=== PATIENT | female | born 1955 | race Caucasian/White ===

== ENCOUNTER → 2017-11-29 07:04 | Outpatient (CLI) | payer MEDICARE, SELFPAY ==
--- NOTE | 2017-11-30 10:25 | PFTCOMP_ITS ---
COMPLETE PULMONARY FUNCTION TEST INTERPRETATION Brief HPI: Patient is a 62 year old female, currently under the care of myself, who presents to [facility] for complete pulmonary function tests secondary to diagnosis of asthma. Respiratory therapist reports good effort and reproducible results. Interpretation: Forced expiration spirometry shows a moderately-severe large airways obstructive ventilatory defect with an FEV1 of 56% predicted. Bronchodilator evaluation was refused. Spirograms are of good quality and plateau slowly, indicating slowly emptying areas of the lungs. The respiratory flow volume loop shows decreased expiratory flow rates at all lung volumes consistent with airway obstruction. Lung volumes by body plethysmography show a decreased total lung capacity at 3.6 L, 65% predicted. All other lung volumes are reduced symmetrically. Diffusion capacity by carbon monoxide is decreased at 51% predicted. The airway resistance is normal. Compared to previous pulmonary function tests from 01/05/2014, there has been a significant reduction in FVC, FEV1 and DLCO. Impression: Moderately severe mixed ventilatory defect with a symmetric reduction diffusing capacity. There has been significant worsening in pulmonary function test compared to 2013.
== END ==
LOC: PSN 07:08
PROVIDERS: Family Provider Internal Medicine; PCP Internal Medicine; Visit Provider Internal Medicine Critical Care Medicine
DX: J45.909 Unspecified asthma, uncomplicated (principal); Z90.2 Acquired absence of lung [part of]
CPT/HCPCS: 94060; 94726; 94729

== ENCOUNTER → 2017-12-09 12:36 | Outpatient (CLI) | payer MEDICARE, SELFPAY ==
[2017-12-09 12:45] VITALS: PULSE 57; PULSE 82; PULSE 85; PULSE 97; PULSE 98; PULSE 99; O2SAT 90; O2SAT 91; O2SAT 92; O2SAT 93; O2SAT 94; O2SAT 96; O2SAT 97
--- NOTE | 2017-12-10 08:40 | WT_ITS ---
PSN 6 Minute Walk Test - 6 Minute Walk Test 6 Minute Walk Test: 6 Minute Walk Test PSN:6-Minute Walk Test Start: 12/09/17 13: 18 Freq: Status: Active Protocol: [id number].[id number] Document 12/09/17 12:45 HG (Rec: 12/09/17 13:21 HG [id number]) 6 Minute Walk Test Date Performed 12/09/17 Time Performed 12:45 Height 5 ft 7 in Weight: 390 lb Weight in Pounds 390.[address]: Michael Paulson Assistive device used: None Pre-test Oxygen Delivery Method Room Air Pulse Ox (%) 97 Pulse Rate (60-100 beats/min) 57 L Dyspnea Ritesh Scale (0-10) 8 Exertion Ritesh Scale (6-20) 2 1st minute Oxygen Delivery Method Room Air Pulse Ox (%) 96 Pulse Rate (60-100 beats/min) 85 2nd minute Oxygen Delivery Method Room Air Pulse Ox (%) 93 Pulse Rate (60-100 beats/min) 98 Number of Rests Taken 1 Reported Symptoms Increased Work of Breathing 3rd minute Oxygen Delivery Method Room Air Pulse Ox (%) 90 Pulse Rate (60-100 beats/min) 98 Number of Rests Taken 1 Reported Symptoms Increased Work of Breathing 4th minute Oxygen Delivery Method Room Air Pulse Ox (%) 91 Pulse Rate (60-100 beats/min) 97 Number of Rests Taken 1 Reported Symptoms Increased Work of Breathing 5th minute Oxygen Delivery Method Room Air Pulse Ox (%) 91 Pulse Rate (60-100 beats/min) 99 Number of Rests Taken 1 Reported Symptoms Increased Work of Breathing 6th minute Pulse Ox (%) 92 Pulse Rate (60-100 beats/min) 97 Post-test Oxygen Delivery Method Room Air Pulse Ox (%) 94 Pulse Rate (60-100 beats/min) 82 Dyspnea Ritesh Scale (0-10) 7 Exertion Ritesh Scale (6-20) 16 Full Laps Walked 9 Partial Lap, Number of Tiles Walked 0 Total Distance Walked (ft) 531 - Interpretation Interpretation: The patient ambulated 531 feet over the course of 6 minutes beginning on room air without assistive devices or breaks. Pretesting oxygen saturation was noted be 97% on room air. With ambulation, the vicky oxygen saturation was 90% . There was evidence of both impaired walk distance and significant exertional oxygen desaturation. - Recommendations Recommendations: There is no indication for the use of supplemental oxygen at this time. However , close interval follow-up is recommended given the degree of oxygen desaturation noted on this study.
== END ==
PROVIDERS: Family Provider Internal Medicine; PCP Internal Medicine; Visit Provider Internal Medicine Critical Care Medicine
DX: J45.909 Unspecified asthma, uncomplicated (principal); Z90.2 Acquired absence of lung [part of]
CPT/HCPCS: 94618

== ENCOUNTER → 2018-05-20 14:41 | Outpatient (CLI) | payer MEDICARE, SELFPAY ==
[2018-05-20 16:33] LABS: Absolute Lymphocyte Count 2.04 X10^3/ul (0.83-4.51); Absolute Neutrophil Count 5.1 X10^3/uL (2.0-7.7); Basophil# 0.03 X10^3/uL; Basophil% 0.4 % (0-1); Eosinophil# 0.23 X10^3/uL; Eosinophils% 2.9 % (0-5); Hematocrit 41.4 % (37-47); Hemoglobin 13.5 g/dl (12.0-15.0); Lymphocyte # 2.04 X10^3/ul (4.0); Lymphocyte % 25.4 % (19-41); Mean Corp Hgb Conc 32.6 g/gl (32-36); Mean Corpuscular Hgb 32.2 pg (27.0-32.0); Mean Corpuscular Volume 98.8 fL (81-99); Mean Platelet Vol. 10.8 fl (6.2-12.0); Monocyte% 7.5 % (0-10); Neutrophil # 5.11 X10^3/uL (2.7-7.7); Neutrophil % 63.4 % (47-70); Platelet Count 238 K/mm3 (150-450); RBC Distribution Width CV 14.9 % (11.6-14.6); Red Blood Count 4.19 M/mm3 (4.2-5.4)
[2018-05-20 16:38] LABS: International Normalized Ratio 2.3; Prothrombin Time (Protime)PT. 25.1 SECONDS (11.7-14.9)
[2018-05-20 16:44] LABS: POSITIVE COUNT NO; POSITIVE DIFFERENTIAL NO; POSITIVE MORPHOLOGY NO
[2018-05-20 17:04] LABS: Anion Gap 8 (5-15); BUN 14 mg/dL (7-18); BUN/Creat Ratio 12.7 RATIO (10-20); Calcium,Total 8.6 mg/dL (8.5-10.1); Chloride 106 mmol/L (98-107); EST Glomerular Filtration Rate 54 mL/min (>60); Est Glom Filt Rate - Afr Amer 65 mL/min (>60); Glucose 128 mg/dL (74-106); Potassium 3.5 mmol/L (3.5-5.1); Sodium Level 141 mmol/L (136-145)
[2018-05-20 17:10] LABS: BNP,B-Type NATRIURETIC PEPTIDE 25.7 pg/mL (0-100)
== END ==
PROVIDERS: Family Provider Internal Medicine; PCP Internal Medicine; Referring Provider Nurse Practitioner Family; Visit Provider Nurse Practitioner Family
DX: I10 Essential (primary) hypertension (principal); I48.0 Paroxysmal atrial fibrillation; J45.909 Unspecified asthma, uncomplicated; R06.09 Other forms of dyspnea; Z79.01 Long term (current) use of anticoagulants
CPT/HCPCS: 36415; 80048; 83880; 85025; 85610

== ENCOUNTER 2018-05-22 16:14 | Emergency (ER) | payer MEDICARE, SELFPAY ==
[2018-05-22 16:14] VITALS: BP 196/101; PULSE 69; RESP 18; TEMP 36.8; O2SAT 94; BMI 30.5
[2018-05-22 16:30] VITALS: BP 185/94; BP 191/96; BP 196/109; PULSE 70; PULSE 74; PULSE 75
--- NOTE | 2018-05-22 16:33 | ED.VISSUMM ---
- ER Visit Summary Date of Service: 05/22/18 Chief Complaint: Sore throat and cough. History of Present Illness: The patient is a 62 F history of A. fib for which she is on warfarin, insulin-dependent diabetes, hypertension, factor V Leiden and prior PE. Patient states she has had URI type symptoms last 2 days. With sore throat at times and earache. No fever. No shortness of breath. Mild nonproductive cough. No hemoptysis. 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 Physical Examination: Well-appearing middle-age female. Vital signs are stable. Pulse ox 94% on room air no signs of hypoxia. H EENT exam posterior pharynx mildly erythematous. No exudate. No peritonsillar abscess. Able to swallow. No stridor. No drooling. TMs unremarkable. Neck nontender. Trachea midline. No lymphadenopathy. No meningismus. Lungs few scattered expiratory wheezes which she states is chronic. No rhonchi or rales. Heart regular rhythm rate about 70. No murmur. Abdomen morbidly obese but soft. Nontender. Normal bowel sounds. She is moving all 4 extremities. They are neurovascularly intact. Back is nontender. Neurologically she is awake and alert. No focal motor deficits. Equal symmetrical major assembler strength. Dorsi and plantar flexion intact. Test Results: I reviewed the patient's labs that she had drawn this past Wednesday on 05/20/2018. CBC showed a white count 8. Hemoglobin was 13. Electrolytes are unremarkable gap was 8. Creatinine was 1.1. She is chronically on anticoagulation due to A. fib and her INR was 2.3. Emergency Department Course and Treatment: Repeat exam at 17:11 patient is doing well. Her orthostatic vital signs were unremarkable. Her blood pressure is elevated. Treatment Plan: Viral URI symptomatic treatment. Disposition: dc Impression: Viral URI. History of A. fib. History of anticoagulation on warfarin History of insulin-dependent diabetes This note was generated with [employer] dictation software. It may contain incorrect words, spelling, and punctuation that were not noted in review of the chart prior to signing ED Disposition - Plan for ED Patient: Chief Complaint: Cold Sx Referrals: Sandy Anderson MD [Primary Care Provider] -
--- NOTE | 2018-05-22 16:36 | ED.DCSUM_ITS ---
- ER Visit Summary Date of Service: 05/22/18 Chief Complaint: Sore throat and cough. History of Present Illness: The patient is a 62 F history of A. fib for which she is on warfarin, insulin-dependent diabetes, hypertension, factor V Leiden and prior PE. Patient states she has had URI type symptoms last 2 days. With sore throat at times and earache. No fever. No shortness of breath. Mild nonproductive cough. No hemoptysis. 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 Physical Examination: Well-appearing middle-age female. Vital signs are stable. Pulse ox 94% on room air no signs of hypoxia. H EENT exam posterior pharynx mildly erythematous. No exudate. No peritonsillar abscess. Able to swallow. No stridor. No drooling. TMs unremarkable. Neck nontender. Trachea midline. No lymphadenopathy. No meningismus. Lungs few scattered expiratory wheezes which she states is chronic. No rhonchi or rales. Heart regular rhythm rate about 70. No murmur. Abdomen morbidly obese but soft. Nontender. Normal bowel sounds. She is moving all 4 extremities. They are neurovascularly intact. Back is nontender. Neurologically she is awake and alert. No focal motor deficits. Equal symmetrical fire engine operator strength. Dorsi and plantar flexion intact. Test Results: I reviewed the patient's labs that she had drawn this past Wednesday on 05/20/2018. CBC showed a white count 8. Hemoglobin was 13. Electrolytes are unremarkable gap was 8. Creatinine was 1.1. She is chronically on anticoagulation due to A. fib and her INR was 2.3. Emergency Department Course and Treatment: Repeat exam at 17:11 patient is doing well. Her orthostatic vital signs were unremarkable. Her blood pressure is elevated. Treatment Plan: Viral URI symptomatic treatment. Disposition: dc Impression: Viral URI. History of A. fib. History of anticoagulation on warfarin History of insulin-dependent diabetes This note was generated with [employer] dictation software. It may contain incorrect words, spelling, and punctuation that were not noted in review of the chart prior to signing ED Disposition - Plan for ED Patient: Chief Complaint: Cold Sx Referrals: Sandy Anderson MD [Primary Care Provider] -
[2018-05-22 16:56] LABS: Bedside Glucose 154 mg/dL (70-110)
--- NOTE | 2018-05-22 17:14 | ED.DEP ---
ED Disposition - Plan for ED Patient: Disposition: Home or Assisted Living Chief Complaint: Cold Sx Instructions: Dysuria, ED URI Viral Referrals: Sandy Anderson MD [Primary Care Provider] - 3-5 Days if not improving Additional Instructions: Plenty of fluids and rest. Follow-up your primary care physician's office to have your blood pressure rechecked. Continue current medications as prescribed.
[2018-05-22 17:22] VITALS: BP 191/96
== END 2018-05-22 17:23 | disposition home or self-care (01) ==
PROVIDERS: Emergency Provider Emergency Medicine; Family Provider Internal Medicine; PCP Internal Medicine
DX: J06.9 Acute upper respiratory infection, unspecified (principal); I48.91 Unspecified atrial fibrillation; E11.9 Type 2 diabetes mellitus without complications; I10 Essential (primary) hypertension; D68.51 Activated protein C resistance; Z86.711 Personal history of pulmonary embolism; Z79.4 Long term (current) use of insulin; Z79.01 Long term (current) use of anticoagulants; Z79.899 Other long term (current) drug therapy
CPT/HCPCS: 82962; 99283

== ENCOUNTER 2018-10-11 19:23 | Emergency (ER) | payer MEDICARE, SELFPAY ==
[2018-10-11 19:24] VITALS: BP 135/83; PULSE 80; RESP 16; TEMP 35.9; O2SAT 95; BMI 58.7
--- NOTE | 2018-10-11 21:33 | CT_ITS ---
STUDY: CT ABDOMEN AND PELVIS WITHOUT CONTRAST REASON FOR EXAM: Female, 62 years old. Right flank pain. RADIATION DOSAGE (If Supplied By Facility): CTDIvol = ( 24.18 ) mGy, DLP = ( 1304.78 ) mGycm TECHNIQUE: Transaxial images were obtained from the dome of the diaphragm to the symphysis pubis without oral contrast, and without intravenous contrast. Sagittal and coronal images were reconstructed. Individualized dose optimization techniques were used for this CT. COMPARISON: 05/22/2017. FINDINGS: Lung bases are clear. Visualized heart is normal. There is diffuse fatty infiltration of the liver. No focal lesion is seen. The spleen and pancreas are unremarkable. The adrenal glands are normal. The kidneys are unremarkable. No stones or hydronephrosis. The aorta is normal in caliber. There is no free fluid, free air, or organized collection. No bowel obstruction or inflammatory change. There is extensive colonic diverticulosis. No evidence of acute diverticulitis. Urinary bladder is unremarkable. There is a moderate umbilical hernia containing a small bowel loop. There is no proximal obstruction. Previously reported collection or seroma in the abdominal wall show significant interval improvement. There is mild residual stranding or scarring at this time. Normal osseous structures. CT/Abdomen/Pelvis without Cont IMPRESSION: 1. No acute process. 2. Umbilical hernia contains a loop of bowel, no proximal obstruction. 3. Diverticulosis, no acute diverticulitis. 4. Near complete resolution of previously described abdominal wall hematoma or collection. Residual stranding or fibrosis is present. 5. Hepatic steatosis. Electronically Signed: Nuvia Rodriguez MD at 23:23 EDT Tel , Service support ,
[2018-10-11] MEDS: HYDROmorphone 1 MG/ML Syringe IV (22:13)
[2018-10-11] MEDS: proMETHazine 25 MG/ML Syringe 12.5 MG IV (22:13)
[2018-10-11] MEDS: 0.9% Normal Saline 1,000 ML 150 ML IV (22:13)
[2018-10-11 22:17] VITALS: BP 185/74; PULSE 84; RESP 22; O2SAT 95
[2018-10-11 22:24] LABS: Bacteria 0 SEEN /hpf (None Seen); Mucous, Urine 0 SEEN /hpf (<or=2+); Red Blood Cells-Urine 0 SEEN /hpf (0-5); Squamous Epithelial Cells - UA 0 SEEN /hpf (5-10)
[2018-10-11 22:28] LABS: Absolute Lymphocyte Count 2.64 X10^3/ul (0.83-4.51); Absolute Neutrophil Count 5.9 X10^3/uL (2.0-7.7); Basophil# 0.02 X10^3/uL; Basophil% 0.2 % (0-1); Eosinophil# 0.26 X10^3/uL; Eosinophils% 2.7 % (0-5); Hematocrit 42.2 % (37-47); Hemoglobin 13.4 g/dl (12.0-15.0); Lymphocyte # 2.64 X10^3/ul (4.0); Lymphocyte % 27.5 % (19-41); Mean Corp Hgb Conc 31.8 g/gl (32-36); Mean Corpuscular Hgb 31.3 pg (27.0-32.0); Mean Corpuscular Volume 98.6 fL (81-99); Mean Platelet Vol. 10.6 fl (6.2-12.0); Monocyte# 0.73 X10^3/uL; Monocyte% 7.6 % (0-10); Neutrophil # 5.93 X10^3/uL (2.7-7.7); Neutrophil % 61.8 % (47-70); Platelet Count 276 K/mm3 (150-450); RBC Distribution Width CV 15.5 % (11.6-14.6); RBC Distribution Width SD 55.8 fl (35.1-43.9); Red Blood Count 4.28 M/mm3 (4.2-5.4); White Blood Count 9.6 K/mm3 (4.4-11.0)
[2018-10-11 22:30] LABS: POSITIVE COUNT NO; POSITIVE DIFFERENTIAL NO; POSITIVE MORPHOLOGY NO
[2018-10-11 22:34] LABS: Color, Urine Yellow (Yellow); Glucose, Dipstick Normal (Normal); Ketone-Dipstick Negative (Negative); Leukocyte Esterase-Dipstick 500 /ul (Negative); Nitrite-Dipstick Negative (Negative); Occult Blood-Urine 50 /ul (Negative); Protein-Dipstick 500 mg/dl (Negative); Urine Bilirubin Dipstick Negative (Negative); Urine Clarity Sl. Cloudy (Clear); Urine Urobilinogen Normal (Normal)
[2018-10-11 22:36] LABS: International Normalized Ratio 2.1; Prothrombin Time (Protime)PT. 23.4 SECONDS (11.7-14.9)
[2018-10-11 22:41] LABS: Anion Gap 8 (5-15); BUN 18 mg/dL (7-18); BUN/Creat Ratio 15.9 RATIO (10-20); Calcium,Total 8.5 mg/dL (8.5-10.1); Chloride 103 mmol/L (98-107); Creatinine, Serum 1.13 mg/dL (0.55-1.02); EST Glomerular Filtration Rate 52 mL/min (>60); Est Glom Filt Rate - Afr Amer 63 mL/min (>60); Estimated Creatinine Clearance 51.48 ml/min; Glucose 144 mg/dL (74-106); Potassium 3.7 mmol/L (3.5-5.1); Sodium Level 139 mmol/L (136-145)
[2018-10-11 23:04] LABS: White Blood Cells 5-10 SEEN /hpf (0-5)
--- NOTE | 2018-10-11 23:32 | ED.VISSUMM ---
- ER Visit Summary Date of Service: 10/11/18 Chief Complaint: [Back pain] History of Present Illness: The patient is a 62 F [presents to the emergency department complaint of pain in her back that she is had for a couple of weeks. Patient states that she has had some issues with some chronic back pain in the past. Patient describes pain now that is radiating around to the anterior aspect of the abdomen. She denies any pain going down her legs. She denies any weakness in the legs. She denies any change in bowel or bladder function. Patient's been using Valium and Tylenol at home and not get much relief. Patient has a history of asthma, diabetes, hypertension, A. fib, obstructive sleep apnea, history of PE. Patient is currently on warfarin. She denies any dysuria, urgency, frequency, or hematuria. Patient's not had any fevers.] Physical Examination: [HEENT-PERRLA, EOMI. Cranial nerves II through XII grossly intact. TMs clear. Mucous membranes moist. No adenopathy. Cardiovascular-regular rate and rhythm without murmur or ectopy Lungs-clear to auscultation, chest wall stable without crepitus or subcu emphysema Abdomen-normoactive bowel sounds, soft. Patient is morbidly obese. Patient has some tenderness to palpation over the right lower quadrant. There is no rebound, rigidity, or perineal signs. Back exam-patient has some tenderness over the right costovertebral angle. Negative straight leg raises. Deep tendon reflexes are plus out of 4 bilaterally at the patella and Achilles. Patient has normal L5 extension bilaterally. Extremities-intact ?4, normal range of motion, normal pulses, atraumatic] Test Results: [CBC with differential 9.6, hemoglobin 13, hematocrit 42, platelets 276. Chemistries unremarkable. INR was 2.1. Urinalysis showed 500 leukocyte esterase and 5-10 WBCs with no bacteria. Negative for nitrites. CT of the abdomen pelvis without contrast showed essentially nothing acute.] Emergency Department Course and Treatment: [Patient was medicated with Dilaudid and Zofran she had pain relief with that.] Treatment Plan: [Patient will be given a prescription for Zofran and Dilaudid for pain. Patient advised to follow-up with primary care physician within next 3-5 days.] Disposition: [Discharged home in stable condition.] Impression: [Acute exacerbation of chronic back pain] This note was generated with [employer] dictation software. It may contain incorrect words, spelling, and punctuation that were not noted in review of the chart prior to signing ED Disposition - Plan for ED Patient: Referrals: Sandy Anderson MD [Primary Care Provider] -
--- NOTE | 2018-10-11 23:38 | ED.DCSUM_ITS ---
- ER Visit Summary Date of Service: 10/11/18 Chief Complaint: [Back pain] History of Present Illness: The patient is a 62 F [presents to the emergency department complaint of pain in her back that she is had for a couple of weeks. Patient states that she has had some issues with some chronic back pain in the past. Patient describes pain now that is radiating around to the anterior aspect of the abdomen. She denies any pain going down her legs. She denies any weakness in the legs. She denies any change in bowel or bladder function. Patient's been using Valium and Tylenol at home and not get much relief. Patient has a history of asthma, diabetes, hypertension, A. fib, obstructive sleep apnea, history of PE. Patient is currently on warfarin. She denies any dysuria, urgency, frequency, or hematuria. Patient's not had any fevers.] Physical Examination: [HEENT-PERRLA, EOMI. Cranial nerves II through XII grossly intact. TMs clear. Mucous membranes moist. No adenopathy. Cardiovascular-regular rate and rhythm without murmur or ectopy Lungs-clear to auscultation, chest wall stable without crepitus or subcu emphysema Abdomen-normoactive bowel sounds, soft. Patient is morbidly obese. Patient has some tenderness to palpation over the right lower quadrant. There is no rebound, rigidity, or perineal signs. Back exam-patient has some tenderness over the right costovertebral angle. Negative straight leg raises. Deep tendon reflexes are plus out of 4 bilate rally at the patella and Achilles. Patient has normal L5 extension bilaterally. Extremities-intact ?4, normal range of motion, normal pulses, atraumatic] Test Results: [CBC with differential 9.6, hemoglobin 13, hematocrit 42, platelets 276. Chemistries unremarkable. INR was 2.1. Urinalysis showed 500 leukocyte esterase and 5-10 WBCs with no bacteria. Negative for nitrites. CT of the abdomen pelvis without contrast showed essentially nothing acute.] Emergency Department Course and Treatment: [Patient was medicated with Dilaudid and Zofran she had pain relief with that.] Treatment Plan: [Patient will be given a prescription for Zofran and Dilaudid for pain. Patient advised to follow-up with primary care physician within next 3-5 days.] Disposition: [Discharged home in stable condition.] Impression: [Acute exacerbation of chronic back pain] This note was generated with [email or web address] dictation software. It may contain incorrect words, spelling, and punctuation that were not noted in review of the chart prior to signing ED Disposition - Plan for ED Patient: Referrals: Sandy Anderson MD [Primary Care Provider] -
--- NOTE | 2018-10-11 23:38 | ED.DEP ---
ED Disposition - Plan for ED Patient: Instructions: ED Spasm Back No Trauma Prescriptions: HYDROmorphone tablet [Dilaudid] 2 mg PO Q4H PRN PRN 2 Days #10 tab PRN Reason: Pain Ondansetron [Zofran Odt] 4 mg PO Q8H PRN PRN #10 tab PRN Reason: Nausea Referrals: Sandy Anderson MD [Primary Care Provider] - 3-5 Days
[2018-10-11 23:59] VITALS: BP 163/77; PULSE 83; RESP 22; O2SAT 94
[2018-10-12] MEDS: Ondansetron ODT 4 MG Tablet PO
[2018-10-12] MEDS: HYDROcodone Bitartrate/Apap 5/325 Tablet PO (00:01)
== END 2018-10-12 00:08 | disposition home or self-care (01) ==
LOC: ED 21:40
PROVIDERS: Emergency Provider Emergency Medicine; Family Provider Internal Medicine; PCP Internal Medicine
DX: M54.5 Low back pain (principal); G89.29 Other chronic pain; G47.33 Obstructive sleep apnea (adult) (pediatric); I48.91 Unspecified atrial fibrillation; Z86.711 Personal history of pulmonary embolism; Z87.891 Personal history of nicotine dependence; Z79.01 Long term (current) use of anticoagulants; Z79.899 Other long term (current) drug therapy
CPT/HCPCS: 74176; 80048; 81001; 85025; 85610; 87086; 87088; 96361; 96374; 96375; 99283; J7030; A4216

== ENCOUNTER → 2018-10-18 12:55 | Outpatient (CLI) | payer MEDICARE, SELFPAY ==
[2018-10-11 19:24] VITALS: BMI 58.7
--- NOTE | 2018-10-18 12:57 | BI_ITS ---
MAMMOGRAPHY - BILATERAL SCREENING 3-D AYAKA SYNTHESIS REASON FOR EXAM: Female, 62 years old. Bilateral Screening 3-D tomosynthesis PERTINENT HISTORY: History of breast cancer in mother in her sixth decade. History of bilateral excisional biopsies and 3 needle biopsies.. TECHNIQUE: 2-D mammograms and 3-D Ayaka synthesis of the breast (s) were performed. CAD was performed. COMPARISON: August 21, 2015 FINDINGS: The breast composition is almost entirely fat. There are 3 tissue clip marker is in the right breast, 2 of which are new.. Scattered benign calcifications are stable. There are stable nodular densities in both breasts. No dense spiculated masses or suspicious microcalcifications are identified. No architectural distortion is identified. There is no skin thickening or retraction. There has been no significant change since the prior study. BI/SCREENING MAMM (CAD), BILAT IMPRESSION: No mammographic signs of malignancy. Routine yearly mammograms recommended. ASSESSMENT CATEGORY: BIRADS Category 2: Benign. A letter regarding these results will be sent to the patient by the facility within 30 days. FOLLOW UP RECOMMENDATION: Yearly follow up mammogram recommended. (A) Approximately 10% of breast cancers are not detected by mammography. A normal mammogram should not delay biopsy of a clinically suspicious abnormality. Electronically Signed: Vignesh Castanon MD at 12:40 EDT , Service support ,
== END ==
PROVIDERS: Family Provider Internal Medicine; PCP Internal Medicine; Referring Provider Internal Medicine; Visit Provider Internal Medicine
DX: Z12.31 Encounter for screening mammogram for malignant neoplasm of breast (principal)
CPT/HCPCS: 77063; 77067

== ENCOUNTER 2019-04-27 10:09 | Emergency (ER) | payer MEDICARE, SELFPAY ==
[2019-04-27 10:10] VITALS: BP 197/89; PULSE 67; RESP 18; TEMP 36.6; O2SAT 96; BMI 56.3
--- NOTE | 2019-04-27 10:24 | CT_ITS ---
We are attempting to reach an attending provider to discuss findings. An addendum with communication details will be sent when the communication is complete. STUDY: CT BRAIN WITHOUT CONTRAST REASON FOR EXAM: Female, 63 years old. Headache x1 month. On Coumadin. RADIATION DOSAGE (If Supplied By Facility): CTDIvol = ( 44.99 ) mGy, DLP = ( 863.60 ) mGycm TECHNIQUE: Transaxial CT imaging of the brain was performed without administration of intravenous contrast material. Coronal and sagittal reconstructions were performed. Individualized dose optimization techniques were used for this CT. COMPARISON: None. FINDINGS: Normal soft tissue structures. Normal calvarium. Hyperdense subdural hematoma overlying the right cerebral hemisphere with maximum thickness of 12.3 mm overlying the right parietal lobe. 8 mm thick hypodense subdural fluid along the posterior right side of the falx cerebri. Hyperdense subdural hematoma along the left side of the posterior falx cerebri. Minimal hyper and hypodense subdural fluid overlying the left cerebral hemisphere. The maximum thickness is 5 mm on the left. Normal ventricles. Normal white matter tracts of the cerebral hemispheres. Normal basal ganglia and thalami. Normal brainstem. Normal cerebellum. There are no findings of an acute ischemic infarction. Normal visualized paranasal sinuses. CT/Brain/Head without Contrast IMPRESSION: 1. Bilateral subdural hematomas, mixed hyperdense and hypodense. The maximum thickness of the subdural hematoma overlying the right parietal lobe is 12.3 mm. The hypodense subdural fluid along the right side of the posterior falx cerebri is 8 mm thick. The hypodense subdural fluid overlying the left cerebral hemisphere is 5 mm thick. There is also minimal hyperdense subdural hematoma along the right side of the anterior falx cerebri and along the left side of the posterior falx cerebri. 2. No midline shift. 3. No intraparenchymal hemorrhage. Electronically Signed: Eric Story MD at 11:24 EDT , Service support ,
--- NOTE | 2019-04-27 10:26 | ED.VIS.GEN ---
History of Present Illness Chief Complaint: Headache Informant: Patient Onset: Month(s) Current Severity: Moderate Maximum Severity: Moderate Narrative: Patient presents with headache which is been ongoing for more than a month. She states over the past week it is gotten worse. She has been taking Tylenol and Valium at home without improvement. She reports having a history of migraines when she was in high school, but really has not had significant headaches as an adult. She did recently start Cymbalta but cannot remember if headaches coincided with the start of this medication. She is currently on Coumadin for a history of PE and paroxysmal A. fib. Blood pressure today is 197/89. She has a history of hypertension and her antihypertensives have not changed recently. She does not check her blood pressure on her normal basis. - Past Medical History (1) Asthma Status: Chronic (2) Atrial fibrillation Status: Chronic (3) History of lobectomy of lung Status: Chronic Comment: LLL removed for CA (4) History of pulmonary embolism Status: Chronic (5) Hypertension Status: Chronic (6) Obesity Status: Chronic (7) Obstructive sleep apnea Status: Chronic (8) Paroxysmal atrial fibrillation Status: Chronic (9) Type 2 diabetes mellitus without complications Status: Chronic Past Medical History - Allergies and Home Meds Allergies/Adverse Reactions: Allergies albuterol Adverse Reaction (Verified 04/27/19 10:12) PALPITATIONS codeine Adverse Reaction (Verified 04/27/19 10:12) Vomiting morphine Adverse Reaction (Verified 04/27/19 10:12) Vomiting oxycodone HCl [From Percocet] Adverse Reaction (Verified 04/27/19 10:12) Vomiting Primary Care Physician: Sandy Anderson MD [Primary Care Provider] - Prior records reviewed: Yes Past Medical History: - - Reviewed Surgical History: appendectomy, cholecystectomy, - - Left lower lung resection for lung cancer, removal of cyst from the breast. Smoking Status: Former smoker - Family History Maternal Family History: Family History (Last Reviewed 11/30/18 @ 13:24 by Margie Ma) Mother Breast cancer Father CAD (coronary artery disease) Myocardial infarction Family History: Reports: Diabetes Paternal Family History: Family History (Last Reviewed 11/30/18 @ 13:24 by Margie Ma) Mother Breast cancer Father CAD (coronary artery disease) Myocardial infarction Family History: Reports: Diabetes, Heart Disease Review of Systems General: Denies: Chills, Fever Eyes: Denies: Visual changes - bilaterally ENT: Denies: Bilateral ear pain Cardiovascular: Denies: Chest pain Respiratory: Denies: Dyspnea, Cough Gastrointestinal: Reports: Nausea. Denies: Abdominal pain, Vomiting, Diarrhea Musculoskeletal: Denies: Neck pain, Back pain Skin: Denies: Rash Neurological: Reports: Headache. Denies: Weakness, Parasthesia Hematologic: Denies: Easy bruising Allergy: Denies: Uticaria Physical Exam Vital Signs/Narrative: Vital Signs Temp Pulse Resp BP Pulse Ox 04/27/19 10:10 98 F 67 18 197/89 H 96 Inital Vital Signs reviewed: Yes General: Well nourished, Well developed Head: Normocephalic Eyes: Perrl, EOMI ENT: Moist mucous membranes Neck: Supple Cardiovascular: Regular rate, Regular rhythm Respiratory: No distress, CTA bilaterally Abdomen: Soft, Nontender, Hypoactive bowel sounds Extremities: Nontender Skin: Normal color, No rash Neurological: Alert, Oriented x3, Normal Strength, Normal Sensation Psychological: Normal affect Diagnostic/Tx/Re-eval Impressions Brain CT 04/27/19 10:24 IMPRESSION: 1. Bilateral subdural hematomas, mixed hyperdense and hypodense. The maximum thickness of the subdural hematoma overlying the right parietal lobe is 12.3 mm. The hypodense subdural fluid along the right side of the posterior falx cerebri is 8 mm thick. The hypodense subdural fluid overlying the left cerebral hemisphere is 5 mm thick. There is also minimal hyperdense subdural hematoma along the right side of the anterior falx cerebri and along the left side of the posterior falx cerebri. 2. No midline shift. 3. No intraparenchymal hemorrhage. Electronically Signed: Eric Story MD at 11:24 EDT , Service support , ADDENDUM: 04/27/19 5037 IMPRESSION: 1. Bilateral subdural hematomas, mixed hyperdense and hypodense. The maximum thickness of the subdural hematoma overlying the right parietal lobe is 12.3 mm. The hypodense subdural fluid along the right side of the posterior falx cerebri is 8 mm thick. The hypodense subdural fluid overlying the left cerebral hemisphere is 5 mm thick. There is also minimal hyperdense subdural hematoma along the right side of the anterior falx cerebri and along the left side of the posterior falx cerebri. 2. No midline shift. 3. No intraparenchymal hemorrhage. N.B. : The above information has been verbally conveyed by Eric Story MD to Dr. Urrutia; [phone], on 04/27/2019 11:29:52 (ET). Electronically Signed: Eric Story MD at 11:24 EDT , Service support , 04/27/19 10:24 Brain/Head without Contrast [CT] Stat Laboratory Results 04/27/19 04/27/19 04/27/19 10:40 10:40 10:40 WBC 10.8 RBC 4.60 Hgb 14.5 Hct 44.0 MCV 95.7 MCH 31.5 MCHC 33.0 RDW Std Deviation 48.9 H RDW Coeff of Peyton 13.9 Plt Count 256 MPV 10.3 Immature Gran % (Auto) 0.500 Neut % (Auto) 64.6 Lymph % (Auto) 24.6 [place] % (Auto) 6.7 Eos % (Auto) 3.0 Baso % (Auto) 0.6 Absolute Neuts (auto) 7.0 Absolute Lymphs (auto) 2.66 Nucleated RBC % 0 PT 37.9 H INR 3.8 H* Sodium 135 L Potassium 3.7 Chloride 101 Carbon Dioxide 29.0 Anion Gap 5 BUN 19 H Creatinine 1.17 H Estim Creat Clear Calc 49.10 Est GFR (MDRD) Af Amer 60 Est GFR (MDRD) Non-Af 50 L BUN/Creatinine Ratio 16.2 Glucose 188 H Calcium 9.0 - EKG Initial EKG Interpretation: Sinus Rhythm - sinus at 63. - Medical Decision Making Patient presents with 1 month plus history of headache that she feels is migrainous. She was given Toradol, Reglan, and Benadryl. INR returns at 3.8. I was called from the device repair technician with update that there was evidence of head bleed. Patient was immediately ordered Kcentra and vitamin K. Cardene drip is ordered. After obtaining formal report from radiology, patient was discussed with [facility], patient's hospital of choice. Patient has been accepted and I have a bed assignment for her. Neuro exam remains normal. ED Disposition - Plan for ED Patient: Disposition: [facility] Diagnosis: Subdural hematoma, Hypertension Referrals: Sandy Anderson MD [Primary Care Provider] -
[2019-04-27] MEDS: Ketorolac 15 MG/ML Vial IV (10:44)
[2019-04-27] MEDS: DiphenhydrAMINE 50 MG/ML Syringe 25 MG IV (10:44)
[2019-04-27] MEDS: Metoclopramide 10 MG/2 ML Vial IV (10:44)
[2019-04-27 10:45] LABS: Absolute Lymphocyte Count 2.66 X10^3/uL (0.83-4.51); Basophil# 0.06 X10^3/uL; Basophil% 0.6 % (0-1); Eosinophil# 0.32 X10^3/uL; Hemoglobin 14.5 g/dL (12.0-15.0); Lymphocyte # 2.66 X10^3/ul (4.0); Lymphocyte % 24.6 % (19-41); Mean Corpuscular Hgb 31.5 pg (27.0-32.0); Mean Corpuscular Volume 95.7 fL (81-99); Mean Platelet Vol. 10.3 fl (6.2-12.0); Monocyte# 0.72 X10^3/uL; Monocyte% 6.7 % (0-10); NRBC Flagged by Analyzer 0 % (0-5); Neutrophil # 7.01 X10^3/uL (2.7-7.7); Neutrophil % 64.6 % (47-70); Platelet Count 256 K/mm3 (150-450); RBC Distribution Width CV 13.9 % (11.6-14.6); RBC Distribution Width SD 48.9 fl (35.1-43.9); White Blood Count 10.8 K/mm3 (4.4-11.0)
[2019-04-27] MEDS: 0.9% Normal Saline 1,000 ML 150 ML IV (10:51)
[2019-04-27 10:53] LABS: Prothrombin Time (Protime)PT. 37.9 SECONDS (11.7-14.9)
[2019-04-27 10:55] VITALS: BP 199/95
[2019-04-27 10:55] LABS: International Normalized Ratio 3.8
[2019-04-27 10:57] LABS: Anion Gap 5 (5-15); BUN 19 mg/dL (7-18); BUN/Creat Ratio 16.2 RATIO (10-20); Chloride 101 mmol/L (98-107); Creatinine, Serum 1.17 mg/dL (0.55-1.02); EST Glomerular Filtration Rate 50 mL/min (>60); Est Glom Filt Rate - Afr Amer 60 mL/min (>60); Glucose 188 mg/dL (74-106); Potassium 3.7 mmol/L (3.5-5.1); Sodium Level 135 mmol/L (136-145)
--- NOTE | 2019-04-27 11:12 | EKG12_ITS ---
Test Reason : HX OF A FIB Blood Pressure : / mmHG Vent. Rate : 063 BPM Atrial Rate : 063 BPM P-R Int : 184 ms QRS Dur : 102 ms QT Int : 446 ms P-R-T Axes : 068 027 039 degrees QTc Int : 456 ms Normal sinus rhythm Normal ECG Confirmed by LARS KAUR ([id number]), copy editor ANDRÉS SANCHES ([id number]) on 05/02/2019 1:13:04 PM Referred By: KVNG Confirmed By:LARS KAUR
[2019-04-27 11:43] VITALS: BP 166/87; PULSE 64; RESP 15; O2SAT 95
[2019-04-27 11:57] VITALS: BP 166/87; PULSE 67; RESP 20; O2SAT 95
--- NOTE | 2019-04-27 12:22 | NURSING ---
REPORT GIVEN TO TOÑA AT [facility]. NOTIFIED OF TRANSFER.
== END 2019-04-27 12:23 | disposition short-term general hospital (02) ==
PROVIDERS: Emergency Provider Emergency Medicine; Family Provider Internal Medicine; PCP Internal Medicine
DX: I62.00 Nontraumatic subdural hemorrhage, unspecified (principal); I10 Essential (primary) hypertension; I48.0 Paroxysmal atrial fibrillation; J45.909 Unspecified asthma, uncomplicated; E66.9 Obesity, unspecified; G47.33 Obstructive sleep apnea (adult) (pediatric); E11.9 Type 2 diabetes mellitus without complications; Z86.711 Personal history of pulmonary embolism; Z87.891 Personal history of nicotine dependence; Z79.01 Long term (current) use of anticoagulants; Z79.4 Long term (current) use of insulin; Z79.899 Other long term (current) drug therapy
CPT/HCPCS: 70450; 80048; 85025; 85610; 93005; 96361; 96365; 96368; 96375; 99285; C9132; J7030; J7040; J7050; A4216; J3490

== ENCOUNTER 2019-06-08 22:44 | Emergency (ER) | payer MEDICARE, SELFPAY ==
[2019-06-08 22:45] VITALS: BP 175/80; PULSE 80; RESP 16; TEMP 36.8; O2SAT 95; BMI 55.2
[2019-06-08 23:04] LABS: Bacteria 0 SEEN /hpf (None Seen); Mucous, Urine 0 SEEN /hpf (<or=2+); Red Blood Cells-Urine 0 SEEN /hpf (0-5)
[2019-06-08 23:07] LABS: Color, Urine Yellow (Yellow); Glucose, Dipstick Normal (Normal); Ketone-Dipstick Negative (Negative); Leukocyte Esterase-Dipstick 25 /ul (Negative); Nitrite-Dipstick Negative (Negative); Occult Blood-Urine Negative /ul (Negative); Protein-Dipstick 100 mg/dl (Negative); Urine Bilirubin Dipstick Negative (Negative); Urine Clarity Sl. Cloudy (Clear); Urine Urobilinogen Normal (Normal)
[2019-06-08 23:16] LABS: Squamous Epithelial Cells - UA 0-5 SEEN /hpf (5-10); White Blood Cells 0-5 SEEN /hpf (0-5)
--- NOTE | 2019-06-08 23:34 | ED.VIS.GEN ---
History of Present Illness Chief Complaint: Abd Pain Narrative: Patient is a 63-year-old female who presents with left lower quadrant abdominal pain. This is been present for 2 days. She describes it as cramping with episodes of sharp pain. No fevers, nausea, vomiting. She was recently treated for a UTI with Keflex and did have some diarrhea during that treatment. This is improved she is still having soft stools but no audelia diarrhea. She denies any urinary symptoms such as dysuria frequency urgency. She does have a history of diverticulitis and notes that this feels similar. Past Medical History - Allergies and Home Meds Allergies/Adverse Reactions: Allergies albuterol Adverse Reaction (Verified 06/08/19 22:47) PALPITATIONS codeine Adverse Reaction (Verified 06/08/19 22:47) Vomiting morphine Adverse Reaction (Verified 06/08/19 22:47) Vomiting oxycodone HCl [From Percocet] Adverse Reaction (Verified 06/08/19 22:47) Vomiting Primary Care Physician: Sandy Anderson MD [Primary Care Provider] - Past Medical History: - - Diabetes, hypertension, subdural hemorrhage Surgical History: appendectomy, cholecystectomy, - - Left lower lung resection for lung cancer, removal of cyst from the breast. Smoking Status: Former smoker - Family History Maternal Family History: Family History (Last Reviewed 11/30/18 @ 13:24 by Margie Ma) Mother Breast cancer Father CAD (coronary artery disease) Myocardial infarction Family History: Reports: Diabetes Paternal Family History: Family History (Last Reviewed 11/30/18 @ 13:24 by Margie Ma) Mother Breast cancer Father CAD (coronary artery disease) Myocardial infarction Family History: Reports: Diabetes, Heart Disease Review of Systems All systems negative except as indicated General: Denies: Fever Cardiovascular: Denies: Chest pain Respiratory: Denies: Dyspnea Gastrointestinal: Reports: Abdominal pain, Diarrhea. Denies: Nausea, Vomiting Genitourinary: Denies: Dysuria, Frequency Physical Exam Vital Signs/Narrative: Vital Signs Temp Pulse Resp BP Pulse Ox 06/08/19 22:45 98.3 F 80 16 175/80 H 95 Inital Vital Signs reviewed: Yes General: Well nourished Head: Normocephalic Eyes: EOMI ENT: Moist mucous membranes Neck: Supple Cardiovascular: Regular rate, Regular rhythm Respiratory: No distress, CTA bilaterally Abdomen: Soft, Tender - Left lower quadrant tenderness to palpation, no guarding, no rebound Skin: Normal color Neurological: Alert Psychological: Normal affect Diagnostic/Tx/Re-eval Impressions Abdomen/Pelvis CT 06/09/19 23:32 IMPRESSION: Hepatomegaly with fatty infiltration. Mild proximal sigmoid diverticulitis. No acute appendicitis. A moderate size umbilical hernia with loops of small bowel in the annual sac. No intestinal obstruction. A left paraumbilical resolving seroma has shrunken in size from 6 cm in diameter to 4 cm since the last study of October 11, 2018 Electronically Signed: Scott Salinas MD at 2:03 EST Tel , Service support , 06/09/19 23:32 Abdomen/Pelvis WITH Contrast [CT] Stat Laboratory Results 06/08/19 06/09/19 06/09/19 23:00 00:30 00:30 WBC 10.1 RBC 3.99 L Hgb 12.4 Hct 38.5 MCV 96.5 MCH 31.1 MCHC 32.2 RDW Std Deviation 50.6 H RDW Coeff of Peyton 14.4 Plt Count 263 MPV 10.3 Immature Gran % (Auto) 0.700 Neut % (Auto) 61.5 Lymph % (Auto) 27.5 [place] % (Auto) 7.5 Eos % (Auto) 2.1 Baso % (Auto) 0.7 Absolute Neuts (auto) 6.2 Absolute Lymphs (auto) 2.77 Nucleated RBC % 0 Sodium 138 Potassium 3.7 Chloride 103 Carbon Dioxide 26.0 Anion Gap 9 BUN 22 H Creatinine 1.61 H Estim Creat Clear Calc 35.68 Est GFR (MDRD) Af Amer 42 L Est GFR (MDRD) Non-Af 35 L BUN/Creatinine Ratio 13.7 Glucose 152 H Calcium 9.3 Urine Color Yellow Urine Clarity Sl. Cloudy Urine pH 6.0 Ur Specific [place] 1.020 Urine Protein 100 H Urine Glucose (UA) Normal Urine Ketones Negative Urine Occult Blood Negative Urine Nitrite Negative Urine Bilirubin Negative Urine Urobilinogen Normal Ur Leukocyte Esterase 25 H Urine RBC 0 SEEN Urine WBC 0-5 SEEN Ur Squamous Epith Cells 0-5 SEEN Urine Bacteria 0 SEEN Urine Mucus 0 SEEN - Medical Decision Making Patient was given Dilaudid here for pain given morphine allergy. She was also given Zofran. Labs as above essentially unremarkable except creatinine 1.6. CT of the abdomen and pelvis does show mild diverticulitis as well as a resolving seroma which was seen on prior imaging and has decreased in size. I do believe the patient is good candidate for outpatient treatment. She was given first doses of Cipro and Flagyl here as well as prescriptions for the same. She does understand return for new or worsening symptoms and was instructed on specific signs and symptoms to monitor for. Patient discharged to follow-up as an outpatient. ED Disposition - Plan for ED Patient: Disposition: Home or Assisted Living Diagnosis: Diverticulitis Instructions: Diverticulitis Prescriptions: Ciprofloxacin [Cipro] 500 mg PO BID #14 tab Prescription Printed metroNIDAZOLE [Flagyl] 500 mg PO Q6H #28 tab Prescription Printed Referrals: Sandy Anderson MD [Primary Care Provider] -
[2019-06-09] MEDS: HYDROmorphone 1 MG/ML Syringe IV (00:31)
[2019-06-09] MEDS: Ondansetron 4 MG/2 ML Vial IV (00:31)
[2019-06-09 00:39] LABS: Absolute Lymphocyte Count 2.77 X10^3/uL (0.83-4.51); Absolute Neutrophil Count 6.2 X10^3/uL (2.0-7.7); Basophil# 0.07 X10^3/uL; Basophil% 0.7 % (0-1); Eosinophil# 0.21 X10^3/uL; Eosinophils% 2.1 % (0-5); Hematocrit 38.5 % (37-47); Hemoglobin 12.4 g/dL (12.0-15.0); Lymphocyte # 2.77 X10^3/ul (4.0); Lymphocyte % 27.5 % (19-41); Mean Corp Hgb Conc 32.2 g/dL (32-36); Mean Corpuscular Hgb 31.1 pg (27.0-32.0); Mean Corpuscular Volume 96.5 fL (81-99); Mean Platelet Vol. 10.3 fl (6.2-12.0); Monocyte# 0.76 X10^3/uL; Monocyte% 7.5 % (0-10); NRBC Flagged by Analyzer 0 % (0-5); Neutrophil # 6.21 X10^3/uL (2.7-7.7); Neutrophil % 61.5 % (47-70); Platelet Count 263 K/mm3 (150-450); RBC Distribution Width CV 14.4 % (11.6-14.6); RBC Distribution Width SD 50.6 fl (35.1-43.9); Red Blood Count 3.99 M/mm3 (4.2-5.4); White Blood Count 10.1 K/mm3 (4.4-11.0)
[2019-06-09 00:53] VITALS: RESP 16
[2019-06-09 00:59] LABS: Anion Gap 9 (5-15); BUN 22 mg/dL (7-18); BUN/Creat Ratio 13.7 RATIO (10-20); Calcium,Total 9.3 mg/dL (8.5-10.1); Chloride 103 mmol/L (98-107); Creatinine, Serum 1.61 mg/dL (0.55-1.02); EST Glomerular Filtration Rate 35 mL/min (>60); Est Glom Filt Rate - Afr Amer 42 mL/min (>60); Estimated Creatinine Clearance 35.68 ml/min; Glucose 152 mg/dL (74-106); Potassium 3.7 mmol/L (3.5-5.1); Sodium Level 138 mmol/L (136-145)
[2019-06-09] MEDS: metroNIDAZOLE 500 MG Tablet PO (02:10)
[2019-06-09] MEDS: Ciprofloxacin 500 MG Tablet PO (02:10)
[2019-06-09 02:19] VITALS: BP 137/71; PULSE 70; RESP 18; O2SAT 94
--- NOTE | 2019-06-09 23:32 | CT_ITS ---
STUDY: CT ABDOMEN AND PELVIS WITH CONTRAST REASON FOR EXAM: Female, 63 years old. Left lower abdominal pain RADIATION DOSAGE (If Supplied By Facility): CTDIvol = ( 26.7 ) mGy, DLP = ( 1774.02 ) mGycm TECHNIQUE: Transaxial images were obtained from the dome of the diaphragm to the symphysis pubis without oral contrast. Oral and amp; IV Isovue 300 100ML was administered. Sagittal and coronal images were reconstructed. Individualized dose optimization techniques were used for this CT. COMPARISON: October 11, 2018 FINDINGS: The lung bases are clear. Hepatomegaly with fatty infiltration. No dilated intrahepatic biliary radicles. Previous cholecystectomy. The spleen is normal. The pancreas is normal. Both adrenals are normal. The kidneys are normal with no masses, calculi or hydronephrosis The stomach is normal. There is no bowel distention, acute appendicitis or diverticulosis. There is mild proximal sigmoid diverticulitis. No constricting lesions are seen in large bowel. Umbilical hernia with loops of small bowel in the hernia sac. No intestinal obstruction. The left paraumbilical resolving seroma has shrunken from 6 cm in diameter to 4 cm since the last examination of October 11, 2018.. There is no ascites or any free intraperitoneal air. No indication of epiploic appendagitis The vascular structures in the retroperitoneum are normal. There is no retrocrural, retroperitoneal or mesenteric adenopathy. The bones and joints are normal. The urinary bladder is normal. The uterus is normal There is no inguinal or pelvic adenopathy. There is no inguinal hernia. CT/Abdomen/Pelvis WITH Contrast IMPRESSION: Hepatomegaly with fatty infiltration. Mild proximal sigmoid diverticulitis. No acute appendicitis. A moderate size umbilical hernia with loops of small bowel in the annual sac. No intestinal obstruction. A left paraumbilical resolving seroma has shrunken in size from 6 cm in diameter to 4 cm since the last study of October 11, 2018 Electronically Signed: Scott Salinas MD at 2:03 EST Tel , Service support ,
== END 2019-06-09 02:20 | disposition home or self-care (01) ==
PROVIDERS: Emergency Provider Emergency Medicine; Family Provider Internal Medicine; PCP Internal Medicine
DX: K57.32 Diverticulitis of large intestine without perforation or abscess without bleeding (principal); I10 Essential (primary) hypertension; E11.9 Type 2 diabetes mellitus without complications; Z87.440 Personal history of urinary (tract) infections; Z87.891 Personal history of nicotine dependence; Z79.4 Long term (current) use of insulin; Z79.899 Other long term (current) drug therapy
CPT/HCPCS: 74177; 80048; 81001; 85025; 96374; 96375; 99284; Q9967; A4216; J2405

== ENCOUNTER 2019-07-04 19:35 | Emergency (ER) | payer MEDICARE, SELFPAY ==
[2019-07-04 19:36] VITALS: BP 188/89; PULSE 76; RESP 16; TEMP 37; O2SAT 95; BMI 54.1
--- NOTE | 2019-07-04 20:13 | CT_ITS ---
STUDY: CT BRAIN WITHOUT CONTRAST REASON FOR EXAM: Female, 63 years old. Headache RADIATION DOSAGE (If Supplied By Facility): CTDIvol = ( 44.99 ) mGy, DLP = ( 812.98 ) mGycm TECHNIQUE: Transaxial CT imaging of the brain was performed without administration of intravenous contrast material. Individualized dose optimization techniques were used for this CT. COMPARISON: April 27, 2019 FINDINGS: Normal soft tissue structures. Postop change status post right parietal craniotomy. Normal size ventricles and extra-axial spaces for the patient's age. Mild periventricular white matter ischemic changes. Normal basal ganglia and thalami. Normal brainstem. Normal cerebellum. Partial empty sella deformity of uncertain significance. There is no intracranial hemorrhage. There are no findings of an acute ischemic infarction. Normal visualized paranasal sinuses. Previously noted bilateral subdural collections are not clearly identified on current study. CT/Brain/Head without Contrast IMPRESSION: Postsurgical changes. No evidence for mass acute bleed or obstructive hydrocephalus. Electronically Signed: Dominik Lopez MD at 20:34 EST , Service support ,
[2019-07-04 21:03] VITALS: BP 164/74; PULSE 73; RESP 16; O2SAT 95
--- NOTE | 2019-07-04 21:21 | ED.VIS.HA ---
History of Present Illness Chief Complaint: Headache Narrative: Patient presenting for evaluation secondary to a headache. Patient has a recent history of a subdural hematoma that required a surgical evaluation and evacuation. Patient states that since yesterday she had an onset of some mild neck stiffness and today she has a mild generalized headache. No recent head injuries. Patient is anticoagulated secondary to a history of factor V Leiden. Patient denies any visual changes numbness or weakness. No exacerbating relieving factors with this headache. Patient was concerned about the possibility of repeat bleed as she did not have any trauma with her prior subdural. Past Medical History - Allergies and Home Meds Allergies/Adverse Reactions: Allergies albuterol Adverse Reaction (Verified 06/08/19 22:47) PALPITATIONS codeine Adverse Reaction (Verified 06/08/19 22:47) Vomiting morphine Adverse Reaction (Verified 06/08/19 22:47) Vomiting oxycodone HCl [From Percocet] Adverse Reaction (Verified 06/08/19 22:47) Vomiting Primary Care Physician: Sandy Anderson MD [Primary Care Provider] - Past Medical History: - - Subdural hematoma. Factor V Leiden. Surgical History: appendectomy, cholecystectomy, - - Left lower lung resection for lung cancer, removal of cyst from the breast. Smoking Status: Former smoker - Family History Maternal Family History: Family History (Last Reviewed 11/30/18 @ 13:24 by Margie Ma) Mother Breast cancer Father CAD (coronary artery disease) Myocardial infarction Family History: Reports: Diabetes Paternal Family History: Family History (Last Reviewed 11/30/18 @ 13:24 by Margie Ma) Mother Breast cancer Father CAD (coronary artery disease) Myocardial infarction Family History: Reports: Diabetes, Heart Disease Review of Systems All systems negative except as indicated General: Denies: Chills, Fever, Sweats Eyes: Denies: Visual changes - bilaterally, Diplopia ENT: Denies: Rhinorrhea, Sore throat Cardiovascular: Denies: Chest pain, Palpitations Respiratory: Denies: Dyspnea, Cough, Dyspnea on exertion Gastrointestinal: Denies: Abdominal pain, Nausea, Vomiting, Diarrhea, Melena, Hematochezia Genitourinary: Denies: Dysuria, Hematuria, Frequency Musculoskeletal: Denies: Back pain, Extremity Pain Skin: Denies: Rash, Wounds Neurological: Reports: Headache. Denies: Weakness, Numbness Physical Exam Vital Signs/Narrative: Vital Signs Temp Pulse Resp BP Pulse Ox 07/04/19 21:03 73 16 164/74 H 95 07/04/19 19:36 98.6 F 76 16 188/89 H 95 Inital Vital Signs reviewed: Yes General: Well nourished, Well developed Head: NC, AT, - - Well-healed surgical scar in the scalp Eyes: Perrl, EOMI ENT: Moist mucous membranes, No rhinorrhea Neck: Supple, No Lymphadenopathy, No JVD, Nontender, No Meningismus Cardiovascular: Regular rate, Regular rhythm, No murmurs Respiratory: No distress, CTA bilaterally, Chest nontender Abdomen: Soft, Nontender, Nondistended, Normal bowel sounds Back: Nontender, Normal Inspection Extremities: Nontender, No edema Skin: Normal color, No rash Neuro: Alert, Oriented x3, Cranial nerves II-XII grossly intact, Normal Strength, Normal Sensation, Normal DTR, Normal Gait Psychological: Normal affect Diagnostic/Tx/Re-eval - Medical Decision Making Patient presented with a headache and history of subdural. CT imaging was performed and was found to be negative. Patient was treated symptomatically in the emergency department was given reassurance and was discharged. Disposition: Home ED Disposition - Plan for ED Patient: Disposition: Home or Assisted Living Diagnosis: Headache Instructions: HEADACHE, Unspecified Referrals: Sandy Anderson MD [Primary Care Provider] -
--- NOTE | 2019-07-04 21:26 | ED.DEP ---
ED Disposition - Plan for ED Patient: Disposition: Home or Assisted Living Diagnosis: Headache Instructions: HEADACHE, Unspecified Referrals: Sandy Anderson MD [Primary Care Provider] -
[2019-07-04] MEDS: HYDROcodone Bitartrate/Apap 5/325 Tablet PO (22:01)
[2019-07-04 22:02] VITALS: BP 167/79; PULSE 76; PULSE 78; RESP 18; O2SAT 96
== END 2019-07-04 22:12 | disposition home or self-care (01) ==
PROVIDERS: Emergency Provider Emergency Medicine; Family Provider Internal Medicine; PCP Internal Medicine
DX: R51 Headache (principal); D68.51 Activated protein C resistance; Z87.891 Personal history of nicotine dependence; Z86.79 Personal history of other diseases of the circulatory system
CPT/HCPCS: 70450; 99283

== ENCOUNTER 2019-07-10 12:40 | Inpatient (IN) | payer MEDICARE, SELFPAY ==
[2019-07-07 16:30] LABS: Hemoglobin A1c 7.5 % (4.2-6.3)
[2019-07-07 16:38] LABS: Thyroid Stim Hormone (TSH) 1.52 uIU/mL (0.358-3.74)
--- NOTE | 2019-07-09 11:14 | PCM.HP.BLA ---
History and Physical Date of Admission: 07/09/19 HISTORY AND PHYSICAL ? Tali Licea 1955 ? ? REFERRING PHYSICIAN: ??Sandy Anderson MD ? CHIEF COMPLAINT: ??Consult ? HPI:?Tali is a patient I am following for a umbilical/ventral hernia. ?The patient has multiple medical colon morbidities. ?We did initially planned for laparoscopic hernia repair but this had to be canceled when she developed an abdominal wall abscess. ?This was treated and then the patient developed a rectus hematoma. ?She still notes discomfort to the left and upper area near the umbilicus which was the site of her hematoma. ?Overall she notes discomfort when she lays on her hernia, but feels he is overall stable. ? The patient is followed by Dr. Matute for her cardiac issues and Dr. Paulson for her pulmonary issues. ?She has had decreased mobility and decreased ability to work due to her issues related to atrial fibrillation and the medications she feels gives her increased fatigue and overall musculoskeletal achiness. ?As a result, she has gained significant weight since her last visit. ? Surgery was therefore postponed when she was seen last year. ??She has attempted weight loss but since that time the patient noted increased in size of a ventral hernia.??She presented to [facility] emergency room recently due to increasing pain at the hernia site and was found to have a loop of small bowel now within the hernia. ?This is only partially reducible. ? PAST MEDICAL HISTORY PAST MEDICAL HISTORY Diagnosis Date ? Anxiety ? ? Atrial fibrillation (HCC) 2016 ? COPD (chronic obstructive pulmonary disease) ([facility]) 01/29/2017 ? Diverticulitis of large intestine without perforation or abscess without bleeding 08/30/2015 ? DM (diabetes mellitus), type 2, uncontrolled (HCC) ? ? DVT (deep venous thrombosis) ([facility]) 08/09/2015 ? Edema of both legs ? ? Factor V Leiden (HCC) ? ? heterozygous ? Hypertension ? ? Hypomagnesemia ? ? Hypothyroidism ? ? not on meds at this time (07/27/15) ? Hypoxemia ? ? since PE Apr 2015 ? Malignant neoplasm of lower lobe of left lung (HCC) 01/29/2017 ? Microscopic hematuria 04/07/2016 ? KIM on CPAP ? ? O2 bleed in ? Pulmonary embolism (HCC) ? ? recurrent--April 2015([facility]); prior was around 2011 ([place]) ? Recurrent urinary tract infection 04/07/2016 ? Subdural hematoma (HCC) ? PAST SURGICAL HISTORY PAST SURGICAL HISTORY Procedure Laterality Date ? APPENDECTOMY ? 1980 ? PAST SURGICAL HISTORY OF ? 12/2009 ? Lower Left Lobectomy ? PAST SURGICAL HISTORY OF Bilateral ? ? Lumpectomy of breast ? PAST SURGICAL HISTORY OF ? ? ? removal fatty tumors on arm ? REMOVAL GALLBLADDER ? 1980 ? Cholecystectomy ? REMOVAL OF TONSILS,<12 Y/O ? ? ? Tonsillectomy removed 1 side only ? TREPHINE-HEMATOMA EVAC, SUBDURAL SPACE ? 04/2019 ? ? ? CURRENT MEDICATIONS Current Outpatient Medications Medication Sig ? levothyroxine (SYNTHROID) 100 mcg tablet Take 2 tablets by mouth once daily. Take on empty stomach ? chlorthalidone (HYGROTON) 25 mg tablet Take 1 tablet by mouth once daily. ? lisinopril (ZESTRIL, PRINIVIL) 40 mg tablet Take 1 tablet by mouth once daily. ? diazePAM (VALIUM) 5 mg tablet Take one tablet daily as needed. ? blood sugar diagnostic (BLOOD GLUCOSE TEST) test strip Test blood sugar(s) up to 4 times daily. Insulin: yes One touch ultra test strip. ? metFORMIN (GLUCOPHAGE) 500 mg tablet TAKE TWO TABLETS BY MOUTH TWICE DAILY WITH MEALS ? enoxaparin (LOVENOX) 40 mg/0.4 mL syrg Inject 40 mg subcutaneously once daily. ? insulin NPH injection (HumuLIN N,NovoLIN N) Inject 17 Units subcutaneously daily at bedtime. Adjust dose as directed. ? DULoxetine (CYMBALTA) 60 mg capsule Take 1 capsule by mouth once daily. ? carvedilol (COREG) 12.5 mg tablet Take 1 tablet by mouth twice daily. ? albuterol (PROVENTIL) 2.5 mg /3 mL (0.083 %) nebulizer solution Use 3 mL via nebulizer every 4 hours as needed for Wheezing/Shortness of Breath. Use over 5-15minutes. (per rn resource nurse) ? betamethasone dipropionate (DIPROSONE) 0.05 % cream Apply 1 application to affected area twice daily. As needed for rash on torso or extremities; avoid skin folds ? amiodarone (CORDARONE) 200 mg tablet Take 1 tablet by mouth once daily. Prescribed by [facility] ? diltiazem CD (CARTIA XT) 180 mg 24 hr capsule Take 1 capsule by mouth once daily. ? nystatin (MYCOSTATIN) powder Apply 1 application to affected area once daily as needed. ? clotrimazole-betamethasone (LOTRISONE) cream Apply 1 application to affected area twice daily. APPLY TO AFFECTED AREA ? COMPOUNDED PRESCRIPTION CPAP supplies and tubing replacement. Dx: KIM ? Insulin Syringe-Needle U-100 (BD INSULIN SYRINGE ULTRA-FINE) 0.3 mL 31 gauge x 5/16 syrg Use as directed 3 to 4 times daily with insulin DX: E.11 DM: yes Insulin: yes ? Insulin Watson, Disposable, (KIMBERLY PEN NEEDLE) 32 gauge x 5/32 ndle Use one needle for each dose. Daily with Lantus. ?E11.65 ? magnesium oxide (MAG-OX) 400 mg tablet Take 2 tablets by mouth once daily. ? No current facility-administered medications for this visit.? ? ? ALLERGIES:?Albuterol; Augmentin [Amoxicillin-Pot Clavulanate]; Codeine; Epinephrine; Morphine; Pristiq [Desvenlafaxine]; Tramadol ? PERSONAL HISTORY:? SOCIAL HISTORY Social History ? Tobacco Use ? Smoking status: Former Smoker ? ? Packs/day: 2.00 ? ? Years: 36.00 ? ? Pack years: 72.00 ? ? Types: Cigarettes ? ? Last attempt to quit: 01/09/2010 ? ? Years since quittin.4 ? Smokeless tobacco: Never Used Substance Use Topics ? Alcohol use: No ? ? Frequency: Never ? ? Drinks per session: Patient refused ? ? Binge frequency: Never ? Drug use: No ?? ? FAMILY HISTORY:? FAMILY HISTORY FAMILY HISTORY Problem Relation Age of Onset ? Cancer Mother ?breast ? Cancer Maternal Grandmother ?cervical ? Hypertension Maternal Grandmother ? ? Heart Father ?[place] ? Diabetes Maternal Grandfather ? ? Diabetes Paternal Grandmother ? ? Heart Paternal Grandfather ?[place] ? ? REVIEW OF SYMPTOMS: ??The review of systems data was entered by the nurse and reviewed by me ? Nursing Notes: Conor Valdovinos ?06/22/2019 ?2:51 PM ?Signed REVIEW OF SYSTEMS: ?General:???The patient NOTES fatigue, denies weight loss, denies weight gain, denies feeling hot, and denies feelings of cold. ?Eyes: ?The patient denies glaucoma, denies eye injury/surgery, wears glasses or contacts. ?Ear/Nose/Throat: ?The patient denies allergies, denies hayfever, denies ear infections, and NOTES bloody noses. ?Cardiovascular: ?The patient denies chest pain, denies heart disease, NOTES high blood pressure,denies cardiac stent, denies prior heart attack, denies irregular heart beat, NOTES high cholesterol, ?denies poor circulation, denies heart failure, other cardiac issues, denies claudication, denies cold feet, denies peripheral arterial stent. ?Respiratory: ?The patient denies tuberculosis, denies pneumonia, denies frequent cough, denies pulmonary embolism, denies shortness of breath, and denies coughing up blood. ?Gastrointestinal: ?The patient denies difficulty swallowing, denies acid reflux, denies ulcers, denies vomiting, denies jaundice/hepatitis, denies gallbladder problems, denies black or tarry stools, denies hemorrhoids, denies bleeding from rectum, NOTES diverticulitis, denies constipation, denies diarrhea, denies loss of stool control, and NOTES hernias. ?Kidney/Bladder: ?The patient denies kidney stones, denies urine infections, and denies bloody urine. ?Skin: ?The patient denies a history of skin cancer, denies bleeding/changing moles, and denies a history of skin rash. ?Neurologic: ?The patient denies a history of epilepsy/convulsions, denies headaches, NOTES head/spinal injuries, and denies stroke/TIA. ?Psychiatric: ?The patient denies psychiatric medications, NOTES depression, and denies voices, denies substance abuse. ?Endocrine: ?The patient NOTES thyroid disorders, NOTES diabetes, and denies hormonal problems. ?Hematologic: ?The patient denies a history of bruising, denies bleeding, and denies anemia, denies blood clots. ?Infections: ?The patient denies a history of measles and mumps, denies rheumatic fever, and denies sexually transmitted diseases. ?Musculoskeletal: ?The patient NOTES back pain/injury, NOTES back problems, denies sciatica, denies knee/foot trouble, denies arthritis, or denies gout. ? ? When was patient's last Mammogram screening? ? ?Last Colonoscopy: ?NA ? Conor Valdovinos ? PHYSICAL EXAMINATION: ? General: ?The patient is 63 year old female, well nourished, well hydrated in no acute distress. ?The patient is oriented to time, place, and person. ? VITALS:?Blood pressure 164/78, pulse 85, temperature 36.3 ?C (97.4 ?F), temperature source Temporal Artery, height 170.2 cm (5' 7), weight (!) 160.6 kg (354 lb), last menstrual period 09/26/2016, SpO2 93 %.?Body mass index is 55.44 kg/m?.? ? HEENT: ?Normal cephalic, ataumatic, pupils are equally round, sclera are anicteric, mucous membranes are moist, oropharynx is clear. ?Neck has no masses, asymmetry or lymphadenopathy. ?Thyroid is unremarkable. ? Respiratory: ?Clear to auscultation and percussion. ?Normal respiratory excursion and pattern. ? Cardiac: ?Examination is regular rate and rhythm. ? Abdominal exam: ?Soft, nontender, ?with no palpable masses. ?No hepatosplenomegaly. ?A?large, non reducible ventral ? Rectal exam:??exam deferred ? Extremities: ?no clubbing, cyanosis or edema. ?No adenopathy. ? Other: ? ? LABORATORY VALUES: As Noted ? RADIOLOGIC STUDIES: ?As Noted ? Assessment ? IMPRESSION:?mid abdomen hernia ? PLAN: ??My plan is to perform a ventral hernia repair with possible mesh. ?The planned surgical procedure was discussed extensively with the patient. ?The risks, benefits, anticipated outcomes and possible complications were mentioned. ?Tali ronands that all hernia repair surgery has a chance of recurrence and/or chronic post operative pain. ?My staff has also explained the procedure in understandable terms and the patient was given the option to take printed material concerning the planned procedure. ?The patient had the opportunity to ask questions concerning the planned procedure. ?The patient freely consents to the planned procedure. ? ? ? My findings have been communicated to .??Sandy Anderson MD?via shared medical record. ?This note will be forwarded to Dr. Sandy Anderson MD. ? Diagnoses:?(K43.9) Ventral hernia without obstruction or gangrene ?(primary encounter diagnosis) ? Anticipated CPT Code:?incarcerated ventral/incisional hernia repair with mesh- [id number] + [id number] ? Anticipated Anesthetic:?General ? Patient weight:??Blood pressure 164/78, pulse 85, temperature 36.3 ?C (97.4 ?F), temperature source Temporal Artery, height 170.2 cm (5' 7), weight (!) 160.6 kg (354 lb), last menstrual period 09/26/2016, SpO2 93 %.?BMI: ?Body mass index is 55.44 kg/m?. ? Planned antibiotic:?Ancef 3gm IVPB stock and station agent to OR ? SCDs needed -?Yes ? Return to Clinic: The patient is instructed to follow-up with me?1 week post operatively. ? Mike Escalona MD ?
[2019-07-10] VITALS (12 sets, daily range): BP systolic 135–157; BP diastolic 62–91; PULSE 59–73; RESP 16; TEMP 36.1–36.9; O2SAT 92–98; BMI 55.7
--- NOTE | 2019-07-10 | HERN_PTH ---
PATIENT: NICK MCLAIN LOC: MS3 U#:[id number] AGE/SX: 63/F ROOM: [facility] RE07/10/[address]: Dr. Mike Escalona MD : 1955 BED: 1 DIS: 07/14/2019 SPEC #: [id number] RECD: 07/10/19 13:48 STATUS: JULI REQ #: [id number] CRYSTAL: 07/10/19 00:[address]: Mike Escalona DEPT: SURGICAL PATHOLOGY RECD BY: Alejandro Gorman ENTERED: 07/10/19 13:48 SP TYPE: Hernia OTHR DR: Dr. Sandy Anderson MD Tissues: HERNIA Procedures: Surgery Specimen Level II HEADER OPERATION: Hernia, incisional repair with mesh PRE-OP DIAGNOSIS: Ventral hernia without obstruction or gangrene TISSUE SUBMITTED: Hernia sac MICROSCOPIC DIAGNOSIS Soft tissue ventral abdomen, excision: Consistent with hernia sac with mild fibrosis and vascular ectasia. AM:sp 07/11/19 MICROSCOPIC DESCRIPTION Slides are reviewed. GROSS DESCRIPTION Received in fixative is one container labeled with the patient's name and designated hernia sac. The specimen consists of a piece of fibroadipose tissue measuring 11 x 6 x 2 cm. No mass lesion is identified. Retail Pharmacy Manager sections are submitted in 1 cassette. /SJ:sp 07/10/19 TC: 5 CPT: 16397
[2019-07-10 08:46] LABS: Bedside Glucose 205 mg/dL (70-110)
[2019-07-10] MEDS: Lactated Ringers 1,000 ML 100 ML IV ×3 (09:07→20:42)
[2019-07-10] MEDS: Bupivacaine Mpf 0.5% 30 ML VIAL (12:34)
--- NOTE | 2019-07-10 12:37 | PCM.OPRPT ---
Report of Operation Date of Procedure: 07/10/19 Pre-Operative Diagnosis: ventral hernia Post-Operative Diagnosis: incarcerated ventral hernia, infarcted fat Surgery/Procedure Performed:: invarcerated ventral hernia repair with mesh, excision of infarcted fat. real estate investment analyst: None Type of Anesthesia:: General Anesthesiologist: Panda Alexander ASA3 Specimen's removed: hernia sac, infarcted fat. Drains: YELENA x 1 Estimated Blood Loss (mL): 125 Fluids Replaced: 1300 Description of Procedure: The patient was brought to the operating suite. Sign in was performed verifying patient, site, procedure, position, and DVT prophylaxis with SCDs. Patient received 3 g Ancef antibiotic prophylaxis. Following induction of general anesthetic, the patient?s abdomen was prepped and draped in the usual fashion. Timeout was performed verifying patient, site, position. Local anesthetic was injected . A curvilinear incision was made around the umbilicus and dissection carried down to the hernia defect. Dissection was continued around the hernia sac and the hernia sac was opened . There was omentum adherent within the hernia sac. This was dissected off the hernia sac and then dissected off the fascial defect margin . There were multiple adhesions intra-abdominally at the rim of the fascial defect. These were carefully dissected through the hernia sac . Once there was circumferential freeing of the small bowel and omentum , the hernia sac was dissected completely free from the subcutaneous fat down to the level of the fascial defect . the patient had a hematoma one year previously which caused her surgical procedure be canceled. There was significant induration of what was likely chronic hematoma and old infarcted fat at the left superior aspect of the dissection cavity. This was fully dissected from the surrounding healthy fat and sent separately to pathology. The final defect measured 3 x 3 cm. An 11 x [address] mesh was then secured with interrupted 0 Prolene sutures and [id number] fashion to the lateral margin, 8 total placed to the undersurface of the fascial sheath. in her sutures were then placed at the mid aspect of the mesh to the fascia.The fascial defect was then closed with interrupted 0 Prolene suture. a 15 round Ayush-Prado drain was placed and secured with a 3-0 nylon suture. Subcutaneous fat was approximated just below the skin with interrupted 3-0 Vicryl suture. the skin was closed with matt. The patient was brought to recovery room in stable condition. Grafts/Implants Used: Ventrio ST [id number] Ref [id number], Lot [id number] ext 10/27/2020 - Admit VTE Documentation VTE Present on Admission: No VTE Mechan Device Prophylaxis: SCD's
[2019-07-10 14:21] LABS: Bedside Glucose 194 mg/dL (70-110)
[2019-07-10] MEDS: oxyCODONE 5 MG Tablet PO ×2 (15:36→20:41)
[2019-07-10] MEDS: Cefazolin 2 GM in 0.9% Normal Saline 100 ML IV ×2 (17:00→23:06)
[2019-07-10] MEDS: 0.9% Saline Lock 10 ML Syringe IV (17:09)
[2019-07-10] MEDS: HYDROmorphone 0.5 MG/0.5 ML SYRINGE IV ×2 (17:09→23:11)
[2019-07-10 21:11] LABS: Bedside Glucose 181 mg/dL (70-110)
[2019-07-10] MEDS: Carvedilol 12.5 MG Tablet PO (21:59)
[2019-07-10] MEDS: dilTIAZem CD 180 MG Capsule PO (21:59)
[2019-07-10] MEDS: Insulin Lispro 100 UNIT/ML INSULN.PEN SC (21:59)
[2019-07-11 03:02] VITALS: BP 143/61; PULSE 75; RESP 18; TEMP 37.2; O2SAT 95
[2019-07-11] MEDS: HYDROmorphone 0.5 MG/0.5 ML SYRINGE IV ×3 (03:07→17:53)
[2019-07-11] MEDS: Cefazolin 2 GM in 0.9% Normal Saline 100 ML IV (05:08)
[2019-07-11 05:50] LABS: Absolute Lymphocyte Count 2.37 X10^3/uL (0.83-4.51); Absolute Neutrophil Count 9.9 X10^3/uL (2.0-7.7); Basophil# 0.05 X10^3/uL; Basophil% 0.4 % (0-1); Eosinophil# 0.11 X10^3/uL; Eosinophils% 0.8 % (0-5); Hematocrit 39.4 % (37-47); Hemoglobin 12.2 g/dL (12.0-15.0); Lymphocyte # 2.37 X10^3/ul (4.0); Lymphocyte % 17.4 % (19-41); Mean Corpuscular Hgb 30.2 pg (27.0-32.0); Mean Corpuscular Volume 97.5 fL (81-99); Mean Platelet Vol. 10.5 fl (6.2-12.0); Monocyte# 1.09 X10^3/uL; NRBC Flagged by Analyzer 0 % (0-5); Neutrophil # 9.87 X10^3/uL (2.7-7.7); Neutrophil % 72.7 % (47-70); Platelet Count 289 K/mm3 (150-450); RBC Distribution Width SD 53.8 fl (35.1-43.9); Red Blood Count 4.04 M/mm3 (4.2-5.4); White Blood Count 13.6 K/mm3 (4.4-11.0)
--- NOTE | 2019-07-11 05:54 | PCM.PN.SRG ---
- Physical Exam Vitals/I&O's: Vital Signs Temp Pulse Resp BP Pulse Ox 99.0 F 75 18 143/61 H 95 07/11/19 03:02 07/11/19 03:02 07/11/19 03:02 07/11/19 03:02 07/11/19 03:02 Oxygen Flow Rate (L/min) 1 Oxygen Delivery Method Nasal Cannula Weight: 161.4 kg Body Mass Index (BMI) 55.7 Finger Stick Blood Glucose 194 Intake and Output for Last 24 Hours 07/09/19 07/10/19 07/11/19 23:59 23:59 23:59 Intake Total 2351.67 / 2551.67 728.33 / 728.33 Output Total 60 / 93 33 / 33 Balance 2291.67 / 2458.67 695.33 / 695.33 General: Alert, Oriented x3 Lungs: Clear to auscultation, Normal air movement Cardiovascular: Regular rate, Regular Rhythm Abdomen: Bowel Sounds Present, Soft, Tender - at incisions - YELENA with serosanguinous drainage Laboratory Results 07/10/19 08:43: POC Glucose 205 H 07/10/19 14:14: POC Glucose 194 H 07/10/19 21:02: POC Glucose 181 H 07/11/19 05:28: WBC Pending, RBC Pending, Hgb Pending, Hct Pending, MCV Pending, MCH Pending, MCHC Pending, RDW Std Deviation Pending, RDW Coeff of Peyton Pending, Plt Count Pending, Neut % (Auto) Pending, Absolute Neuts (auto) Pending 07/11/19 05:28: Sodium Pending, Potassium Pending, Chloride Pending, Carbon Dioxide Pending, Anion Gap Pending, BUN Pending, Creatinine Pending, Est GFR (MDRD) Af Amer Pending, Est GFR (MDRD) Non-Af Pending, BUN/Creatinine Ratio Pending, Glucose Pending, Calcium Pending Current Medications Acetaminophen (Tylenol) 650 mg PO Q6H PRN PRN PRN Reason: Pain Score 1-10/10 Amiodarone HCl (Cordarone) 100 mg PO QHS [facility] Carvedilol (Coreg) 12.5 mg PO BID [facility] Diltiazem HCl (Cardizem Cd) 180 mg PO BID [facility] Enoxaparin Sodium (Lovenox) 40 mg SC DAILY [facility] Hydromorphone HCl (Dilaudid Inj) 0.5 - 2 mg IV Q1H PRN PRN PRN Reason: Pain Score 1-10/10 Last Admin: 07/11/19 03:07 Dose: 0.5 mg Documented by: Hydromorphone HCl (Dilaudid Inj) 0.5 - 2 mg IV Q1H PRN PRN PRN Reason: Pain Score 1-10/10 Lactated Ringer's () 1,000 mls @ 100 mls/hr IV .Q10H [facility] Last Infusion: 07/11/19 05:07 Dose: 0 mls/hr Documented by: Insulin Human Lispro (Humalog Kwikpen (Bkc)) 0 unit SC ACHS [facility]; Protocol Last Admin: 07/10/19 21:59 Dose: 2 u Documented by: Levothyroxine Sodium (Synthroid) 200 mcg PO DAILY [facility] Lisinopril (Zestril) 40 mg PO DAILY [facility] Metformin HCl (Glucophage Xr) 1,000 mg PO BID [facility] Non-Formulary Medication (Chlorthalidone) 25 mg PO DAILY [facility] Non-Formulary Medication (Insulin Nph Human Isophane [Novolin N]) 20 unit SQ QHS [facility] Ondansetron HCl (Zofran) 4 mg IV Q8H PRN PRN PRN Reason: NAUSEA Oxycodone HCl (Oxyir) 5 - 10 mg PO Q4H PRN PRN PRN Reason: Pain Score 6-10/10 Last Admin: 07/10/19 20:41 Dose: 10 mg Documented by: Sodium Chloride () 10 - 40 ml IV UD PRN PRN Reason: SALINE FLUSH Last Admin: 07/10/19 17:09 Dose: 10 ml Documented by: Medical Necessity - Tobacco Use Smoking Status: Former smoker Assessment/Plan All Active Problems (Last Reviewed 11/30/18 @ 13:24 by Margie Ma) Dyspnea on exertion (Acute) Acute diverticulitis (Acute) POD # 1 s/p open incarcerated incisional hernia repair with mesh, multiple medical comorbidities Large subcutaneous hernia sac - drain in place cardiac and pulmonary - restart medications, incentive spirometry, ambulation Morbid obesity - SCD, lovenox, ambulate IDDM - accuchecks, restart oral medication and regular insulin dose, sliding scale
[2019-07-11 06:09] LABS: Anion Gap 7 (5-15); BUN 23 mg/dL (7-18); BUN/Creat Ratio 14.2 RATIO (10-20); Calcium,Total 8.5 mg/dL (8.5-10.1); Chloride 103 mmol/L (98-107); Creatinine, Serum 1.62 mg/dL (0.55-1.02); EST Glomerular Filtration Rate 34 mL/min (>60); Est Glom Filt Rate - Afr Amer 42 mL/min (>60); Estimated Creatinine Clearance 35.46 ml/min; Glucose 170 mg/dL (74-106); Potassium 4.1 mmol/L (3.5-5.1); Sodium Level 136 mmol/L (136-145)
[2019-07-11] MEDS: Levothyroxine 100 MCG Tablet 200 MCG PO (06:43)
[2019-07-11] MEDS: Insulin Lispro 100 UNIT/ML INSULN.PEN SC ×3 (06:46→21:28)
[2019-07-11 07:00] LABS: Bedside Glucose 176 mg/dL (70-110)
[2019-07-11] MEDS: oxyCODONE 5 MG Tablet PO ×3 (07:26→21:35)
[2019-07-11] MEDS: Lactated Ringers 1,000 ML 100 ML IV ×2 (07:27→17:48)
[2019-07-11 09:00] VITALS: BP 128/59; PULSE 75; RESP 18; TEMP 37.1; O2SAT 95; O2SAT 96
[2019-07-11] MEDS: metFORMIN (XR) 500 MG Tablet 1000 MG PO ×2 (09:42→17:45)
[2019-07-11] MEDS: dilTIAZem CD 180 MG Capsule PO ×2 (09:43→21:20)
[2019-07-11] MEDS: Enoxaparin 40 MG/0.4 ML Syringe SC (09:43)
[2019-07-11] MEDS: Carvedilol 12.5 MG Tablet PO ×2 (09:43→21:20)
[2019-07-11] MEDS: Chlorthalidone 50 MG Tablet 25 MG PO (09:44)
[2019-07-11] MEDS: Lisinopril 40 MG Tablet PO (09:45)
[2019-07-11] MEDS: HYDROmorphone 1 MG/ML Syringe IV (10:54)
[2019-07-11 11:46] LABS: Bedside Glucose 174 mg/dL (70-110)
--- NOTE | 2019-07-11 12:21 | CASEMGMT ---
RN CM Assessment Presentation: Hernia Incisional Repair w/mesh Intro role of CM and purpose of RN CM assessment. Demographics, PCP and Pharmacy verified.Pt is awake, alert and able to participate in assessment. Pt states she lives independently with her and plans to return home. Family will be with pt at home first few days and will assist with transportation to f/u. PCP: Dr. Anderson Specialists: Dr. Escalona, surgeon Preferred Pharmacy: [facility] Insurance: [facility] [employer] Prescription Benefit: yes LNOK: Living Arrangements/DME: Lives independently with her . States granddaughter also lives with them and is able to assist if needed. Pt has motorized WC for outside distances. Transportation: family drives pt HHC: none Patient DC goals: Home on dc DC PLAN: Home on discharge with family support. Wyatt POMPA RN ACM
[2019-07-11 15:00] VITALS: PULSE 80; RESP 18; O2SAT 95
[2019-07-11] MEDS: Acetaminophen 325 MG Tablet 650 MG PO (16:19)
[2019-07-11 16:30] LABS: Bedside Glucose 165 mg/dL (70-110)
[2019-07-11 16:43] VITALS: BP 131/71; PULSE 78; RESP 18; TEMP 36.7; O2SAT 95
[2019-07-11 21:20] VITALS: BP 113/54; PULSE 67; RESP 20; TEMP 37.3; O2SAT 96
[2019-07-11] MEDS: Amiodarone 200 MG Tablet 100 MG PO (21:20)
[2019-07-11] MEDS: Polyethylene Glycol 3350 17 GM PACKET PO (21:24)
[2019-07-11] MEDS: Insulin NPH Human 100 UNITS/ML PEN 20 UNITS SC (21:27)
[2019-07-11 21:41] LABS: Bedside Glucose 153 mg/dL (70-110)
[2019-07-12] MEDS: oxyCODONE 5 MG Tablet PO ×5 (01:50→23:58)
[2019-07-12 02:43] VITALS: BP 107/47; PULSE 74; RESP 20; TEMP 36.6; O2SAT 95
[2019-07-12] MEDS: Lactated Ringers 1,000 ML 100 ML IV ×3 (03:38→23:51)
[2019-07-12] MEDS: Levothyroxine 100 MCG Tablet 200 MCG PO (05:10)
[2019-07-12 06:51] LABS: Bedside Glucose 144 mg/dL (70-110)
[2019-07-12] MEDS: Carvedilol 12.5 MG Tablet PO ×2 (09:09→22:36)
[2019-07-12] MEDS: metFORMIN (XR) 500 MG Tablet 1000 MG PO ×2 (09:09→16:56)
[2019-07-12] MEDS: Lisinopril 40 MG Tablet PO (09:10)
[2019-07-12] MEDS: Polyethylene Glycol 3350 17 GM PACKET PO (09:10)
[2019-07-12] MEDS: Chlorthalidone 50 MG Tablet 25 MG PO (09:10)
[2019-07-12] MEDS: dilTIAZem CD 180 MG Capsule PO ×2 (09:10→22:36)
[2019-07-12] MEDS: Enoxaparin 40 MG/0.4 ML Syringe SC (09:10)
[2019-07-12 09:30] VITALS: BP 124/64; PULSE 79; RESP 18; TEMP 36.8; O2SAT 92
--- NOTE | 2019-07-12 09:44 | PCM.PN.SRG ---
Subjective: incisional pain - Physical Exam Vitals/I&O's: Vital Signs Temp Pulse Resp BP Pulse Ox 97.9 F 74 20 H 107/47 L 95 07/12/19 02:43 07/12/19 02:43 07/12/19 02:43 07/12/19 02:43 07/12/19 02:43 Oxygen Flow Rate (L/min) 2 Oxygen Delivery Method Nasal Cannula Weight: 161.4 kg Body Mass Index (BMI) 55.7 Finger Stick Blood Glucose 194 Intake and Output for Last 24 Hours 07/10/19 07/11/19 07/12/19 23:59 23:59 23:59 Intake Total 2351.67 / 2551.67 3336.66 / 3336.66 1043.33 / 1043.33 Output Total 60 / 93 978 / 978 65 / 65 Balance 2291.67 / 2458.67 2358.66 / 2358.66 978.33 / 978.33 General: Alert, Oriented x3, Cooperative Lungs: Clear to auscultation, - - poor air entry Cardiovascular: Regular rate, Regular Rhythm Abdomen: Soft, Hypoactive Bowel Sounds, Tender - at incisions, YELENA - serosanguinous Laboratory Results 07/11/19 11:39: POC Glucose 174 H 07/11/19 16:13: POC Glucose 165 H 07/11/19 21:27: POC Glucose 153 H 07/12/19 06:36: POC Glucose 144 H Current Medications Acetaminophen (Tylenol) 650 mg PO Q6H PRN PRN PRN Reason: Pain Score 1-05/11 Last Admin: 07/11/19 16:19 Dose: 650 mg Documented by: Amiodarone HCl (Cordarone) 100 mg PO QHS [facility] Last Admin: 07/11/19 21:20 Dose: 100 mg Documented by: Carvedilol (Coreg) 12.5 mg PO BID [facility] Last Admin: 07/12/19 09:09 Dose: 12.5 mg Documented by: Chlorthalidone (Hygroton) 25 mg PO DAILY [facility] Last Admin: 07/12/19 09:10 Dose: 25 mg Documented by: Diltiazem HCl (Cardizem Cd) 180 mg PO BID [facility] Last Admin: 07/12/19 09:10 Dose: 180 mg Documented by: Enoxaparin Sodium (Lovenox) 40 mg SC DAILY [facility] Last Admin: 07/12/19 09:10 Dose: 40 mg Documented by: Hydromorphone HCl (Dilaudid Inj) 0.5 - 2 mg IV Q1H PRN PRN PRN Reason: Pain Score 1-10/10 Last Admin: 07/11/19 17:53 Dose: 0.5 mg Documented by: Hydromorphone HCl (Dilaudid Inj) 0.5 - 2 mg IV Q1H PRN PRN PRN Reason: Pain Score 1-10/10 Last Admin: 07/11/19 10:54 Dose: 1 mg Documented by: Lactated Ringer's () 1,000 mls @ 100 mls/hr IV .Q10H [facility] Last Admin: 07/12/19 03:38 Dose: 100 mls/hr Documented by: Insulin Human Lispro (Humalog Kwikpen (Bk)) 0 unit SC ACHS [facility]; Protocol Last Admin: 07/12/19 06:36 Dose: Not Given Documented by: Insulin Human NPH (Humulin N (Bk)) 20 units SC QHS [facility] Last Admin: 07/11/19 21:27 Dose: 20 u Documented by: Levothyroxine Sodium (Synthroid) 200 mcg PO DAILY@0600 [facility] Last Admin: 07/12/19 05:10 Dose: 200 mcg Documented by: Lisinopril (Zestril) 40 mg PO DAILY [facility] Last Admin: 07/12/19 09:10 Dose: 40 mg Documented by: Metformin HCl (Glucophage Xr) 1,000 mg PO BIDCM [facility] Last Admin: 07/12/19 09:09 Dose: 1,000 mg Documented by: Ondansetron HCl (Zofran) 4 mg IV Q8H PRN PRN PRN Reason: NAUSEA Oxycodone HCl (Oxyir) 5 - 10 mg PO Q4H PRN PRN PRN Reason: Pain Score 6-10/10 Last Admin: 07/12/19 09:10 Dose: 10 mg Documented by: Polyethylene Glycol (Miralax) 17 gm PO DAILY [facility] Last Admin: 07/12/19 09:10 Dose: 17 gm Documented by: Sodium Chloride () 10 - 40 ml IV UD PRN PRN Reason: SALINE FLUSH Last Admin: 07/10/19 17:09 Dose: 10 ml Documented by: Medical Necessity - Tobacco Use Smoking Status: Former smoker Assessment/Plan All Active Problems (Last Reviewed 11/30/18 @ 13:24 by Margie Ma) Dyspnea on exertion (Acute) Acute diverticulitis (Acute) POD # 2 s/p open incarcerated incisional hernia repair with mesh, multiple medical comorbidities Large subcutaneous hernia sac - drain in place cardiac and pulmonary - restart medications, incentive spirometry, ambulation Morbid obesity - SCD, lovenox, ambulate - patient instructed to walk more- at least 6 laps in the full hallway IDDM - accuchecks, restart oral medication and regular insulin dose, sliding scale
--- NOTE | 2019-07-12 11:37 | NURSING ---
ambulated with pt in hallway to room 301 pt stated wasn't sure if I can make it back this nurse encouraged pt to turn around and walk back to room. pt took a few more steps leaned on wall and stated her legs were going to give out. staff assisted to get chair for pt to rest in and LACE AND TEXTILES RESTORER grabbed wheelchair to help pt back to room. Pt assisted into bed call light within reach denies any needs. Will continue to monitor.
[2019-07-12] MEDS: Insulin Lispro 100 UNIT/ML INSULN.PEN SC (11:42)
[2019-07-12 16:00] VITALS: BP 132/69; PULSE 68; RESP 18; TEMP 36.8; O2SAT 92
[2019-07-12 16:16] LABS: Bedside Glucose 186 mg/dL (70-110)
[2019-07-12 16:25] LABS: Bedside Glucose 137 mg/dL (70-110)
[2019-07-12 22:34] VITALS: BP 130/57; PULSE 88; RESP 18; TEMP 38; O2SAT 93
[2019-07-12] MEDS: Amiodarone 200 MG Tablet 100 MG PO (22:37)
[2019-07-12] MEDS: Acetaminophen 325 MG Tablet 650 MG PO (22:42)
[2019-07-12] MEDS: Insulin NPH Human 100 UNITS/ML PEN 20 UNITS SC (22:47)
[2019-07-12 22:50] VITALS: PULSE 88; RESP 18; O2SAT 93
[2019-07-12 23:21] LABS: Bedside Glucose 131 mg/dL (70-110)
[2019-07-13] VITALS (8 sets, daily range): BP systolic 101–134; BP diastolic 54–103; PULSE 60–86; RESP 12–18; TEMP 36.8–38.1; O2SAT 93–100
[2019-07-13] MEDS: oxyCODONE 5 MG Tablet PO ×4 (04:56→22:18)
[2019-07-13] MEDS: Levothyroxine 100 MCG Tablet 200 MCG PO (04:57)
[2019-07-13 06:41] LABS: Bedside Glucose 125 mg/dL (70-110)
[2019-07-13] MEDS: Bisacodyl 10 MG Suppository RECTAL (08:35)
[2019-07-13] MEDS: metFORMIN (XR) 500 MG Tablet 1000 MG PO ×2 (08:38→17:48)
[2019-07-13] MEDS: Lactated Ringers 1,000 ML 100 ML IV ×2 (09:46→22:11)
[2019-07-13] MEDS: Lisinopril 40 MG Tablet PO (09:46)
[2019-07-13] MEDS: Polyethylene Glycol 3350 17 GM PACKET PO (09:46)
[2019-07-13] MEDS: Enoxaparin 40 MG/0.4 ML Syringe SC (09:46)
[2019-07-13] MEDS: Carvedilol 12.5 MG Tablet PO ×2 (09:47→20:11)
[2019-07-13] MEDS: dilTIAZem CD 180 MG Capsule PO ×2 (09:47→20:10)
[2019-07-13] MEDS: Chlorthalidone 50 MG Tablet 25 MG PO (09:47)
[2019-07-13 12:30] LABS: Bedside Glucose 133 mg/dL (70-110)
--- NOTE | 2019-07-13 13:06 | PN.SURG_ITS ---
Subjective: no flatus, still feeling very weak and unsteady while ambulating - Physical Exam Vitals/I&O's: Vital Signs Temp Pulse Resp BP Pulse Ox 99.3 F H 60 12 106/59 L 97 07/13/19 07:46 07/13/19 09:00 07/13/19 07:46 07/13/19 07:46 07/13/19 07:46 Oxygen Flow Rate (L/min) 3 Oxygen Delivery Method Room Air Weight: 161.4 kg Body Mass Index (BMI) 55.7 Finger Stick Blood Glucose 194 Intake and Output for Last 24 Hours 07/11/19 07/12/19 07/13/19 23:59 23:59 23:59 Intake Total 3336.66 / 3336.66 4393.33 / 4743.33 2041.67 / 2041.67 Output Total 978 / 978 65 / 505 1155 / 1155 Balance 2358.66 / 2358.66 4328.33 / 4238.33 886.67 / 886.67 General: Alert, Oriented x3, Cooperative Lungs: - - symmetric but poor overall air entry Cardiovascular: Regular rate, Regular Rhythm Abdomen: Bowel Sounds Present, Soft, Hypoactive Bowel Sounds, Tender - at incisions Laboratory Results 07/12/19 11:13: POC Glucose 186 H 07/12/19 16:18: POC Glucose 137 H 07/12/19 22:46: POC Glucose 131 H 07/13/19 06:28: POC Glucose 125 H 07/13/19 12:05: POC Glucose 133 H Current Medications Acetaminophen (Tylenol) 650 mg PO Q6H PRN PRN PRN Reason: Pain Score 1-1010 Last Admin: 07/12/19 22:42 Dose: 650 mg Documented by: Amiodarone HCl (Cordarone) 100 mg PO QHS [facility] Last Admin: 07/12/19 22:37 Dose: 100 mg Documented by: Bisacodyl (Dulcolax) 10 mg RECTAL DAILY [facility] Last Admin: 07/13/19 08:35 Dose: 10 mg Documented by: Carvedilol (Coreg) 12.5 mg PO BID [facility] Last Admin: 07/13/19 09:47 Dose: 12.5 mg Documented by: Chlorthalidone (Hygroton) 25 mg PO DAILY [facility] Last Admin: 07/13/19 09:47 Dose: 25 mg Documented by: Diltiazem HCl (Cardizem Cd) 180 mg PO BID [facility] Last Admin: 07/13/19 09:47 Dose: 180 mg Documented by: Enoxaparin Sodium (Lovenox) 40 mg SC DAILY [facility] Last Admin: 07/13/19 09:46 Dose: 40 mg Documented by: Hydromorphone HCl (Dilaudid Inj) 0.5 - 2 mg IV Q1H PRN PRN PRN Reason: Pain Score 1-1010 Last Admin: 07/11/19 17:53 Dose: 0.5 mg Documented by: Hydromorphone HCl (Dilaudid Inj) 0.5 - 2 mg IV Q1H PRN PRN PRN Reason: Pain Score 1-1010 Last Admin: 07/11/19 10:54 Dose: 1 mg Documented by: Lactated Ringer's () 1,000 mls @ 100 mls/hr IV .Q10H [facility] Last Admin: 07/13/19 09:46 Dose: 100 mls/hr Documented by: Insulin Human Lispro (Humalog Kwikpen (Bkc)) 0 unit SC ACHS [facility]; Protocol Last Admin: 07/13/19 12:08 Dose: Not Given Documented by: Insulin Human NPH (Humulin N (Bkc)) 20 units SC QHS [facility] Last Admin: 07/12/19 22:47 Dose: 20 u Documented by: Levothyroxine Sodium (Synthroid) 200 mcg PO DAILY@0600 [facility] Last Admin: 07/13/19 04:57 Dose: 200 mcg Documented by: Lisinopril (Zestril) 40 mg PO DAILY [facility] Last Admin: 07/13/19 09:46 Dose: 40 mg Documented by: [facility] Last Admin: 07/13/19 08:38 Dose: 1,000 mg Documented by: Ondansetron HCl (Zofran) 4 mg IV Q8H PRN PRN PRN Reason: NAUSEA Oxycodone HCl (Oxyir) 5 - 10 mg PO Q4H PRN PRN PRN Reason: Pain Score 6-10/10 Last Admin: 07/13/19 09:04 Dose: 10 mg Documented by: Polyethylene Glycol (Miralax) 17 gm PO DAILY [facility] Last Admin: 07/13/19 09:46 Dose: 17 gm Documented by: Sodium Chloride () 10 - 40 ml IV UD PRN PRN Reason: SALINE FLUSH Last Admin: 07/10/19 17:09 Dose: 10 ml Documented by: Medical Necessity - Tobacco Use Smoking Status: Former smoker Assessment/Plan All Active Problems (Last Reviewed 11/30/18 @ 13:24 by Margie Ma) Dyspnea on exertion (Acute) Acute diverticulitis (Acute) POD # 3 s/p open incarcerated incisional hernia repair with mesh, multiple medical comorbidities Large subcutaneous hernia sac - drain in place cardiac and pulmonary - restart medications, incentive spirometry, ambulation Morbid obesity - SCD, lovenox, ambulate - patient instructed to walk more- at least 6 laps in the full hallway - yesterday afternoon patient was able to walk about 70 feet and then felt fatigued and unstable. She did assistance by nursing to help her sit down and get back to the room. At this point in time, its looking the patient may need custodial facility post acute stay for reconditioning and rehabilitation given her morbid obesity and inability to am bulate and perform other activities of daily living. IDDM - accuchecks, restart oral medication and regular insulin dose, sliding scale
--- NOTE | 2019-07-13 13:20 | CASEMGMT ---
Social Work Note SW met with pt to confirm discharge plans. SW introduced self and role at [facility]. Pt is alert and orientated x3. Pt confirms that she wishes to discharge home states she lives with her and granddaughter who is able to assist at home if needed. Pt states she also has a walker and rollator at home. Pt denied the need for HHC or additional DME at this time. Plan: Home Sudha Valente [employer], [employer]
[2019-07-13 17:20] LABS: Bedside Glucose 118 mg/dL (70-110)
[2019-07-13] MEDS: Acetaminophen 325 MG Tablet 650 MG PO (19:37)
[2019-07-13] MEDS: Amiodarone 200 MG Tablet 100 MG PO (20:11)
[2019-07-13] MEDS: Insulin NPH Human 100 UNITS/ML PEN 20 UNITS SC (22:22)
[2019-07-13 22:51] LABS: Bedside Glucose 124 mg/dL (70-110)
[2019-07-14 02:14] VITALS: BP 103/57; PULSE 58; RESP 18; TEMP 36.7; O2SAT 96
[2019-07-14] MEDS: oxyCODONE 5 MG Tablet PO (02:17)
[2019-07-14 02:20] VITALS: RESP 18; O2SAT 96
--- NOTE | 2019-07-14 05:49 | PCM.DC.HER ---
Discharge Diet: Light diet - advance as tolerated Discharge Activity: Return to Normal Activity, May Drive - when you are no longer taking narcotic pain medications., May Shower - with the bandage in place 1-2 days after surgery. Lifting Restrictions: 20 pounds for 8 weeks. Additional Activity Instructions:: Climbing stairs is fine, walking is encouraged. Sitting in bed may be uncomfortable. Sitting up using your lateral muscles (sitting up sideways) is usually more comfortable. Do not drive, work heavy equipment of sign legal documents for 24 hours. If your hernia repair was an ingunial repair, you may have scrotal swelling, an ice pack and/or athletic support can provide more comfort. Pain medications may cause nausea, you should typically eat light foods as you take your pain medications. Pain medications may also cause constipation. If you have difficulty with this, discuss with your doctor. Call your doctor if your incision/area has: Continuous Slow Oozing, Sudden Increased Bleeding, Increased Pain/ Swelling, Increased Redness, Foul Smelling Discharge Call your doctor if you observe: Fever of 101 or Higher Suture Line Care: Avoid Pulling/Pushing, Avoid Pinching/Bending Additional Dressing/Incision Instructions:: Leave the operative bandage on for 2-3 days. When you remove the bandage, leave the steri-strips on place until your follow up appointment or they fall off. Allergies/Adverse Reactions: Allergies albuterol Adverse Reaction (Verified 07/06/19 14:05) PALPITATIONS codeine Adverse Reaction (Verified 07/06/19 14:05) Vomiting morphine Adverse Reaction (Verified 07/06/19 14:05) Vomiting oxycodone HCl [From Percocet] Adverse Reaction (Verified 07/06/19 14:05) Vomiting Medications to take at Discharge metFORMIN (XR) [Glucophage Xr] 1,000 mg PO BID 01/14/14 Diazepam [Valium] 5 mg PO Q8H PRN PRN 04/02/15 amiodarone 200 mg tablet 100 mg PO QHS tab 05/20/18 carvedilol 12.5 mg tablet 12.5 mg PO BID 05/20/18 levothyroxine 100 mcg tablet 200 mcg PO DAILY 05/20/18 lisinopril 40 mg tablet 40 mg PO DAILY 05/20/18 Chlorthalidone 25 mg PO DAILY 04/27/19 Diltiazem HCl [Cartia Xt] 180 mg PO BID 07/04/19 Insulin NPH Human Isophane [Novolin N] 20 unit SQ QHS 07/06/19 Acetaminophen [Tylenol Tablet] 650 mg PO Q6H PRN PRN tab 07/14/19 Polyethylene Glycol 3350 [Miralax] 17 gm PO DAILY packet 07/14/19 Orders to be completed after discharge: Hemoglobin A1c Time Frame: 07/06/19, Facility: [facility], Location: Laboratory Thyroid Stim Hormone (TSH) Time Frame: 07/06/19, Facility: [facility], Location: Laboratory Primary Care Physician: Sandy Anderson MD [Primary Care Provider] - Test Results: Test results from this visit will be discussed in further detail at your follow-up appointment, if applicable. Please Follow Up With: Mike Escalona MD - [phone] When: Plan to have a follow up appointment in 7 days. Call to schedule.
[2019-07-14 05:52] LABS: Absolute Lymphocyte Count 2.17 X10^3/uL (0.83-4.51); Absolute Neutrophil Count 5.5 X10^3/uL (2.0-7.7); Basophil# 0.02 X10^3/uL; Basophil% 0.2 % (0-1); Eosinophil# 0.26 X10^3/uL; Eosinophils% 2.9 % (0-5); Hematocrit 31.3 % (37-47); Hemoglobin 10.1 g/dL (12.0-15.0); Lymphocyte # 2.17 X10^3/ul (4.0); Lymphocyte % 24.3 % (19-41); Mean Corp Hgb Conc 32.3 g/dL (32-36); Mean Corpuscular Hgb 31.6 pg (27.0-32.0); Mean Corpuscular Volume 97.8 fL (81-99); Mean Platelet Vol. 10.3 fl (6.2-12.0); Monocyte# 0.95 X10^3/uL; Monocyte% 10.6 % (0-10); NRBC Flagged by Analyzer 0 % (0-5); Neutrophil # 5.48 X10^3/uL (2.7-7.7); Neutrophil % 61.3 % (47-70); Platelet Count 243 K/mm3 (150-450); RBC Distribution Width CV 14.5 % (11.6-14.6); RBC Distribution Width SD 52.1 fl (35.1-43.9); White Blood Count 8.9 K/mm3 (4.4-11.0)
[2019-07-14 06:23] LABS: Anion Gap 6 (5-15); BUN 37 mg/dL (7-18); BUN/Creat Ratio 12.9 RATIO (10-20); Chloride 100 mmol/L (98-107); Creatinine, Serum 2.87 mg/dL (0.55-1.02); EST Glomerular Filtration Rate 18 mL/min (>60); Est Glom Filt Rate - Afr Amer 21 mL/min (>60); Estimated Creatinine Clearance 20.02 ml/min; Glucose 118 mg/dL (74-106); Potassium 3.9 mmol/L (3.5-5.1); Sodium Level 133 mmol/L (136-145)
[2019-07-14] MEDS: Levothyroxine 100 MCG Tablet 200 MCG PO (06:30)
[2019-07-14] MEDS: Acetaminophen 325 MG Tablet 650 MG PO (06:34)
[2019-07-14 06:40] LABS: Bedside Glucose 125 mg/dL (70-110)
[2019-07-14 07:16] VITALS: O2SAT 95
[2019-07-14 07:24] VITALS: BP 109/57; PULSE 68; RESP 16; TEMP 36.8; O2SAT 95
[2019-07-14 08:46] VITALS: O2SAT 86; O2SAT 94
[2019-07-14 08:54] VITALS: O2SAT 94
[2019-07-14] MEDS: Carvedilol 12.5 MG Tablet PO (09:02)
[2019-07-14] MEDS: Lisinopril 40 MG Tablet PO (09:02)
[2019-07-14] MEDS: Chlorthalidone 50 MG Tablet 25 MG PO (09:02)
[2019-07-14] MEDS: metFORMIN (XR) 500 MG Tablet 1000 MG PO (09:02)
[2019-07-14] MEDS: dilTIAZem CD 180 MG Capsule PO (09:02)
[2019-07-14] MEDS: Enoxaparin 40 MG/0.4 ML Syringe SC (09:03)
[2019-07-14] MEDS: Polyethylene Glycol 3350 17 GM PACKET PO (09:03)
--- NOTE | 2019-07-17 14:33 | CASEMGMT ---
Case Management DC F/u call: DC Date: 07/14/19 DC Diagnosis: Dyspnea on exertion (Acute), Acute diverticulitis (Acute), s/p open incarcerated incisional hernia repair with mesh, multiple medical comorbidities DC Disposition: Home Lace/Strata: 07/05 Called patient cell phone listed on demographics, no answer, VM unable to identify correct patient and therefore no VM was left. SHAY Rosado
--- NOTE | 2019-07-17 16:58 | PCM.DC.SUM ---
Discharge Date and Diagnosis Date of Admission: 07/10/19 Date of Discharge: 07/14/19 - Primary Discharge Diagnosis incisional hernia - Secondary Discharge Diagnosis Chronic Problems (Last Reviewed 11/30/18 @ 13:24 by Margie aM) Atrial fibrillation (Chronic) Obesity (Chronic) Type 2 diabetes mellitus without complications (Chronic) Paroxysmal atrial fibrillation (Chronic) Obesity due to excess calories with serious comorbidity (Chronic) History of lobectomy of lung (Chronic) LLL removed for CA Obstructive sleep apnea (Chronic) Spontaneous hematoma of abdominal wall (Chronic) 02/15/17 Abdominal Wall Hematoma. Hypertension (Chronic) Asthma (Chronic) History of pulmonary embolism (Chronic) Hospital Course and Treatment Operations: herniorrhaphy Summary of Care Provided: The patient is a 63 year old F recently seen in the ER for a increasing umbilical/incisional/hernia. She was admitted and underwent an incisional hernia repair with mesh. Her post operative course was complicated by her morbid obesity with difficulty ambulating and elevated blood glucose secondary to poorly controlled diabetes. SHe was ready for discharge on POD #4 - Physical Exam Vitals/I&O's: Vital Signs Temp Pulse Resp BP Pulse Ox 98.3 F 68 16 109/57 L 94 07/14/19 07:24 07/14/19 07:24 07/14/19 07:24 07/14/19 07:24 07/14/19 08:54 Oxygen Flow Rate (L/min) [ 2 AMBULATION with Oxygen] Oxygen Flow Rate (L/min) 2 Oxygen Delivery Method Room Air Weight: 161.4 kg Body Mass Index (BMI) 55.7 Finger Stick Blood Glucose 194 General: Alert, Oriented x3, Cooperative Lungs: - - poor effort Cardiovascular: Regular rate, Regular Rhythm Abdomen: Bowel Sounds Present, Soft, Non Tender Discharge Diet: Light diet - advance as tolerated Discharge Activity: Return to Normal Activity, May Drive - when you are no longer taking narcotic pain medications., May Shower - with the bandage in place 1-2 days after surgery. Additional Activity Instructions:: Climbing stairs is fine, walking is encouraged. Sitting in bed may be uncomfortable. Sitting up using your lateral muscles (sitting up sideways) is usually more comfortable. Do not drive, work heavy equipment of sign legal documents for 24 hours. If your hernia repair was an ingunial repair, you may have scrotal swelling, an ice pack and/or athletic support can provide more comfort. Pain medications may cause nausea, you should typically eat light foods as you take your pain medications. Pain medications may also cause constipation. If you have difficulty with this, discuss with your doctor. Call your doctor if your incision/area has: Continuous Slow Oozing, Sudden Increased Bleeding, Increased Pain/ Swelling, Increased Redness, Foul Smelling Discharge Call your doctor if you observe: Fever of 101 or Higher Suture Line Care: Avoid Pulling/Pushing, Avoid Pinching/Bending Additional Dressing/Incision Instructions:: Leave the operative bandage on for 2-3 days. When you remove the bandage, leave the steri-strips on place until your follow up appointment or they fall off. Home Medications: Medications to take at Discharge metFORMIN (XR) [Glucophage Xr] 1,000 mg PO BID 01/14/14 Diazepam [Valium] 5 mg PO Q8H PRN PRN 04/02/15 amiodarone 200 mg tablet 100 mg PO QHS tab 05/20/18 carvedilol 12.5 mg tablet 12.5 mg PO BID 05/20/18 levothyroxine 100 mcg tablet 200 mcg PO DAILY 05/20/18 lisinopril 40 mg tablet 40 mg PO DAILY 05/20/18 Chlorthalidone 25 mg PO DAILY 04/27/19 Diltiazem HCl [Cartia Xt] 180 mg PO BID 07/04/19 Insulin NPH Human Isophane [Novolin N] 20 unit SQ QHS 07/06/19 Acetaminophen [Tylenol Tablet] 650 mg PO Q6H PRN PRN tab 07/14/19 Polyethylene Glycol 3350 [Miralax] 17 gm PO DAILY packet 07/14/19 Other Amb Orders: Hemoglobin A1c Time Frame: 07/06/19, Facility: [facility], Location: Laboratory Thyroid Stim Hormone (TSH) Time Frame: 07/06/19, Facility: [facility], Location: Laboratory Primary Care Physician: Sandy Anderson MD [Primary Care Provider] - Please Follow Up With: Mike Escalona MD When: Plan to have a follow up appointment in 7 days. Call to schedule. Please Follow Up With: Sandy Andersno MD Medical Necessity - Tobacco Use Smoking Status: Former smoker Meaningful Use Info Meaningful Use Diagnoses (Choose all that apply): None applicable
== END 2019-07-14 11:53 | disposition home or self-care (01) | DRG 354 ==
LOC: MS3 13:41
PROVIDERS: Admitting Provider Surgery; Family Provider Internal Medicine; PCP Internal Medicine; Referring Provider Surgery; Visit Provider Surgery
PROC: 0WUF0JZ Supplement Abdominal Wall with Synthetic Substitute, Open Approach (ICD-10-PCS; principal; 2019-07-10 09:35)
DX: K43.0 Incisional hernia with obstruction, without gangrene (principal); Z68.43 Body mass index [BMI] 50.0-59.9, adult; E66.01 Morbid (severe) obesity due to excess calories; Z79.4 Long term (current) use of insulin; E11.65 Type 2 diabetes mellitus with hyperglycemia; G47.33 Obstructive sleep apnea (adult) (pediatric); I10 Essential (primary) hypertension; Z87.891 Personal history of nicotine dependence
CPT/HCPCS: 36415; 80048; 82962; 83036; 84443; 85025; 88302; 97116; 97163; 97530; 99251; J7120; A4216; C1781; G0463; J2405

== ENCOUNTER → 2019-08-09 16:43 | Outpatient (CLI) | payer MEDICARE, SELFPAY ==
[2019-07-10 14:37] VITALS: BMI 55.7
--- NOTE | 2019-08-09 16:53 | CT_ITS ---
STUDY: CT BRAIN WITHOUT CONTRAST REASON FOR EXAM: Female, 63 years old. sdh f/u RADIATION DOSAGE (If Supplied By Facility): DLP = ( 796.11 ) mGycm TECHNIQUE: Transaxial CT imaging of the brain was performed without administration of intravenous contrast material. Individualized dose optimization techniques were used for this CT. COMPARISON: CT head July 04, 2019 FINDINGS: Stable right craniotomy is present. There is no acute bleed or infarct. There are normal white matter tracts. The ventricles are normal in configuration. There is no hydrocephalus. The visualized paranasal sinuses are clear. The mastoid air cells are well aerated. There is no skull fracture. CT/Brain/Head without Contrast IMPRESSION: No acute intracranial abnormality. Stable right craniotomy. Electronically Signed: Dominik Rae, at 17:34 EST Tel , Service support ,
== END ==
PROVIDERS: Family Provider Internal Medicine; PCP Internal Medicine
DX: S06.5X9A Traumatic subdural hemorrhage with loss of consciousness of unspecified duration, initial encounter (principal)
CPT/HCPCS: 70450

== ENCOUNTER 2019-09-30 20:59 | Emergency (ER) | payer MEDICARE, SELFPAY ==
[2019-07-10 14:37] VITALS: BMI 55.7
[2019-09-30 21:01] VITALS: BP 210/78; PULSE 71; RESP 20; TEMP 36.2; O2SAT 97; BMI 54.8
--- NOTE | 2019-09-30 21:23 | EKG12_ITS ---
Test Reason : HEADACHE Blood Pressure : / mmHG Vent. Rate : 068 BPM Atrial Rate : 068 BPM P-R Int : 194 ms QRS Dur : 102 ms QT Int : 426 ms P-R-T Axes : 066 039 044 degrees QTc Int : 452 ms Normal sinus rhythm Normal ECG Confirmed by JUDD ALDRIDGE, TORREY ([id number]), editorial director ANDRÉS SANCHES ([id number]) on 10/02/2019 10:15:13 AM Referred By: KYLEE Confirmed By:TORREY WHALEY MD
--- NOTE | 2019-09-30 21:23 | CT_ITS ---
STUDY: CT BRAIN WITHOUT CONTRAST REASON FOR EXAM: Female, 63 years old. HIT HEAD WEEKS AGO, HX SUBDURAL HEMATOMA IN PAST, FACTOR 5, LOVENOX ON/OFF, SOB ALSO RADIATION DOSAGE (If Supplied By Facility): CTDIvol = ( 44.99 ) mGy, DLP = ( 829.85 ) mGycm TECHNIQUE: Transaxial CT imaging of the brain was performed without administration of intravenous contrast material. Individualized dose optimization techniques were used for this CT. COMPARISON: Prior study of 08/09/2019 FINDINGS: Normal soft tissue structures. There is a right parietal craniotomy. Normal size ventricles and extra-axial spaces for the patient''s age. Normal white matter tracts of the cerebral hemispheres. Normal basal ganglia and thalami. Normal brainstem. Normal cerebellum. There is no intracranial hemorrhage. There are no findings of an acute ischemic infarction. Normal visualized paranasal sinuses. CT/Brain/Head without Contrast IMPRESSION: Right parietal craniotomy. There is no evidence of intracranial hemorrhage or acute infarct. Electronically Signed: Mendoza Plummer MD at 23:06 EST , Service support ,
[2019-09-30 21:45] LABS: Absolute Lymphocyte Count 2.58 X10^3/uL (0.83-4.51); Absolute Neutrophil Count 5.5 X10^3/uL (2.0-7.7); Basophil# 0.03 X10^3/uL; Basophil% 0.3 % (0-1); Eosinophil# 0.27 X10^3/uL; Hematocrit 36.7 % (37-47); Lymphocyte # 2.58 X10^3/ul (4.0); Lymphocyte % 28.2 % (19-41); Mean Corp Hgb Conc 32.7 g/dL (32-36); Mean Corpuscular Hgb 30.5 pg (27.0-32.0); Mean Corpuscular Volume 93.4 fL (81-99); Mean Platelet Vol. 10.2 fl (6.2-12.0); Monocyte# 0.75 X10^3/uL; Monocyte% 8.2 % (0-10); NRBC Flagged by Analyzer 0 % (0-5); Neutrophil # 5.47 X10^3/uL (2.7-7.7); Neutrophil % 59.8 % (47-70); Platelet Count 263 K/mm3 (150-450); RBC Distribution Width CV 14.6 % (11.6-14.6); RBC Distribution Width SD 50.5 fl (35.1-43.9); Red Blood Count 3.93 M/mm3 (4.2-5.4); White Blood Count 9.2 K/mm3 (4.4-11.0)
[2019-09-30] MEDS: 0.9% Normal Saline 1,000 ML 1000 ML IV (21:47)
[2019-09-30] MEDS: Ondansetron 4 MG/2 ML Vial IV (21:47)
[2019-09-30] MEDS: HYDROmorphone 1 MG/ML Syringe IV (21:47)
[2019-09-30 21:53] LABS: International Normalized Ratio 1.1; Prothrombin Time (Protime)PT. 13.6 SECONDS (11.7-14.9)
[2019-09-30 21:54] LABS: Partial Thromboplast Time 35.6 Seconds (24.1-36.2)
[2019-09-30 22:00] VITALS: BP 167/67; PULSE 69; RESP 16; O2SAT 94
[2019-09-30 22:02] LABS: Anion Gap 5 (5-15); BUN 27 mg/dL (7-18); BUN/Creat Ratio 18.6 RATIO (10-20); Calcium,Total 9.1 mg/dL (8.5-10.1); Chloride 107 mmol/L (98-107); Creatinine, Serum 1.45 mg/dL (0.55-1.02); EST Glomerular Filtration Rate 39 mL/min (>60); Est Glom Filt Rate - Afr Amer 47 mL/min (>60); Estimated Creatinine Clearance 39.62 ml/min; Glucose 168 mg/dL (74-106); Potassium 3.8 mmol/L (3.5-5.1); Sodium Level 140 mmol/L (136-145)
[2019-09-30 22:06] LABS: D-Dimer Quantitative (DVT/PE) 2.57 FEU/ug/m (0.27-0.49)
--- NOTE | 2019-09-30 22:13 | CT_ITS ---
STUDY: CTA CHEST REASON FOR EXAM: Female, 63 years old. SOB, PE, FACTOR 5, HX PE, [place], ONLY TAKES LOVENOX ON/OFF RADIATION DOSAGE (If Supplied By Facility): CTDIvol = ( 31.58 ) mGy, DLP = ( 787.11 ) mGycm TECHNIQUE: The examination was performed with the intravenous administration of IV 100mL Isovue-370. Post-processing of the angiographic images was performed, with multiplanar reformation and 3D reconstruction. Individualized dose optimization techniques were used for this CT. COMPARISON: Prior study of 04/02/2015 FINDINGS: Normal enhancement of the main pulmonary artery and right and left pulmonary arteries. Normal enhancement of the bilateral peripheral pulmonary arteries. There is no demonstrated pulmonary embolism. There is dilatation of the main, left, and right pulmonary arteries. The main pulmonary artery measures up to 3.9 cm in diameter. Normal thoracic aorta and visualized great vessels. There is no demonstrated aortic dissection. Normal heart and pericardium. Normal mediastinum. Normal hilar regions. Normal visualized trachea and bronchi. The lungs are well expanded. There is a noncalcified 8 mm nodule of the right upper lobe image 192 series 2 increased in size from the previous study where it measured 5 mm. There is a focus of pleural thickening of the left lateral hemithorax measuring 2.7 cm at the base, new in the interval. Normal chest wall structures. There are diffuse degenerative changes of the visualized thoracolumbar spine. Normal visualized upper abdomen. CT/CTA Chest W/WO Contrast IMPRESSION: Normal CTA chest examination, without a demonstrated pulmonary embolism or arterial dissection. There is dilatation of the main, left, and right pulmonary arteries. The main pulmonary artery measures up to 3.9 cm in diameter. This may be associated with pulmonary hypertension. There is a noncalcified 8 mm nodule of the right upper lobe. This is increased in size from the previous study of 2014 where it measured 5 mm. Appropriate follow-up using Fleischner Society criteria is recommended. There is a focus of pleural thickening of the lateral left hemithorax measuring 2.7 cm the base, new in the interval. Diffuse degenerative changes of the visualized thoracolumbar spine. Electronically Signed: Mendoza Plummer MD at 23:28 EST , Service support ,
--- NOTE | 2019-09-30 22:32 | RAD_ITS ---
STUDY: X-RAY CHEST REASON FOR EXAM: Female, 63 years old. INCREASED SOB TODAY TECHNIQUE: PA and lateral views of the chest. COMPARISON: Prior study of 05/27/2017 FINDINGS: campus monitor leads are present. The lungs are clear and expanded. There is left costophrenic angle blunting. Normal size heart. Normal mediastinum and josiane. Normal visualized pulmonary arteries. Normal visualized aortic arch and descending thoracic aorta. There are diffuse degenerative changes of the visualized thoracic spine. Normal visualized ribs, clavicles, and shoulders. There is no demonstrated abnormality of the visualized soft tissue structures of the upper abdomen. RAD/Chest PA and Lateral IMPRESSION: Left costophrenic angle blunting which may represent small effusion. Degenerative changes of the thoracic spine. Electronically Signed: Mendoza Plummer MD at 23:08 EST , Service support ,
[2019-09-30 23:00] VITALS: BP 170/77; PULSE 65; RESP 19; O2SAT 89
[2019-09-30 23:04] VITALS: RESP 18; O2SAT 94
--- NOTE | 2019-09-30 23:34 | ED.DCSUM_ITS ---
- ER Visit Summary Date of Service: 09/30/19 Chief Complaint: Headache, shortness of breath, and abscess History of Present Illness: The patient is a [address] Anderson and Dr. Matute. She reports that she has a headache that began 2 weeks ago after hitting her head while getting into her car. States that she has a history of a subdural hematoma and April 2019 that she was seen at [facility]. She had a craniotomy on the right in the area that she is now having pain. She reports the pain is aching in 3-10 currently. 6 out of 10 when she touches it. Patient reports that she has shortness of breath that began today. She reports that it is a little and could be due to the weather. She denies any fever, chills, chest pain, or cough. Patient has a history of hidradenitis suppurativa. She reports that she has an abscess in her right axilla that began approximately a week ago. She had spontaneous drainage today. She is seen Dr. Hartman in the past for these. Physical Examination: Vitals: Stable. Afebrile. General: Well-nourished and well-developed. Head: Normocephalic atraumatic. Neck: Supple, no lymphadenopathy. No JVD. Nontender. Cardiovascular: Regular rate and rhythm. No murmurs. Respiratory: No respiratory distress. Clear to auscultation bilaterally. Abdominal: Soft, nontender, nondistended, normal bowel sounds. No guarding, rebound, or peritoneal signs. Back: Nontender. Extremities: Nontender, no edema. Skin: Right axilla shows a 3 cm erythematous fluctuant area with minimal induration. Neurologic: Alert and oriented ?3. Cranial nerves II through XII are intact. Normal strength and sensation. Psych: Normal affect. Test Results: EKG is sinus at [address] changes. Troponin is negative. D-dimer is elevated. INR is 1.1 and PTT is 35.6. Chem-7 shows a glucose 168, BUN 27, creatinine 1.45. CBC shows hematocrit 36.7. Clinical Impression(s) from Imaging Studies Brain CT 09/30/19 21:23 IMPRESSION: Right parietal craniotomy. There is no evidence of intracranial hemorrhage or acute infarct. Electronically Signed: Mendoza Plummer MD at 23:06 EST , Service support , Chest CTA 09/30/19 22:13 IMPRESSION: Normal CTA chest examination, without a demonstrated pulmonary embolism or arterial dissection. There is dilatation of the main, left, and right pulmonary arteries. The main pulmonary artery measures up to 3.9 cm in diameter. This may be associated with pulmonary hypertension. There is a noncalcified 8 mm nodule of the right upper lobe. This is increased in size from the previous study of 2014 where it measured 5 mm. Appropriate follow-up using Fleischner Society criteria is recommended. There is a focus of pleural thickening of the lateral left hemithorax measuring 2.7 cm the base, new in the interval. Diffuse degenerative changes of the visualized thoracolumbar spine. Electronically Signed: Mendoza Plummer MD at 23:28 EST , Service support , Chest X-Ray 09/30/19 22:32 IMPRESSION: Left costophrenic angle blunting which may represent small effusion. Degenerative changes of the thoracic spine. Electronically Signed: Mendoza Plummre MD at 23:08 EST , Service support , Emergency Department Course and Treatment: Patient was given a dose of Dilaudid and Zofran IV. She had an I&D performed the abscess in her right axilla. She tolerated this well. She given doxycycline p.o. Treatment Plan: Patient will be discharged on doxycycline. Instructed to follow-up with Dr. Santos and/or dr. Calzada in 2 days for a wound check. Return to the emergency department for any worsening symptoms. Disposition: To home in improved and stable condition. Impression: 1 1. Cephalgia. 2. Dyspnea. 3. Abscess right axilla. 4. Incision and drainage. Procedure Note: Abscess was cleansed with chlorhexidine soap. Anesthetized with 1% lidocaine wit hout epinephrine. An incision was made with an 11 scalpel blade. A moderate amount of pus was drained. Curved hemostats were used to break up loculations. The wound was copiously irrigated with normal saline. It was loosely packed with iodoform gauze. The patient tolerated it well. This note was generated with [employer] dictation software. It may contain incorrect words, spelling, and punctuation that were not noted in review of the chart prior to signing ED Disposition - Plan for ED Patient: Disposition: Home or Assisted Living Instructions: ABSCESS, Incision and Drainage, HEADACHE, Unspecified, PULMONARY NODULE, Solitary Prescriptions: Doxycycline 100 mg PO BID #20 cap Prescription Printed Hydrocodone Bitart/Apap 5-325 [Armstrong 5MG-325MG] 1 tab PO Q4H PRN PRN 2 Days #10 tab PRN Reason: Pain Prescription Printed Ondansetron [Zofran Odt] 4 mg PO Q8H PRN PRN #10 tab PRN Reason: Nausea Prescription Printed Referrals: Sandy Anderson MD [Primary Care Provider] - 1-2 Days if not improving Rodríguez Avendaño DO [STAFF PHYSICIAN] - Mike Escalona MD [STAFF PHYSICIAN] - 2 Days for wound check Clayton Calzada MD [STAFF PHYSICIAN] - 2 Days for wound check
[2019-10-01] VITALS: BP 173/72; PULSE 68; RESP 17; O2SAT 98
[2019-10-01] MEDS: Ondansetron 4 MG/2 ML Vial IV (00:43)
[2019-10-01] MEDS: HYDROmorphone 1 MG/ML Syringe IV (00:43)
[2019-10-01] MEDS: Doxycycline 100 MG CAPSULE PO (00:56)
[2019-10-01 00:57] VITALS: BP 162/72; PULSE 88; RESP 18; O2SAT 95
== END 2019-10-01 01:03 | disposition home or self-care (01) ==
LOC: ED 21:42
PROVIDERS: Emergency Provider Emergency Medicine; PCP Internal Medicine
DX: L02.411 Cutaneous abscess of right axilla (principal); R51 Headache; R06.00 Dyspnea, unspecified; Z86.73 Personal history of transient ischemic attack (TIA), and cerebral infarction without residual deficits; J44.9 Chronic obstructive pulmonary disease, unspecified; E11.9 Type 2 diabetes mellitus without complications; I10 Essential (primary) hypertension; I48.91 Unspecified atrial fibrillation; D68.51 Activated protein C resistance; E78.00 Pure hypercholesterolemia, unspecified; Z87.891 Personal history of nicotine dependence; Z79.84 Long term (current) use of oral hypoglycemic drugs; Z79.899 Other long term (current) drug therapy
CPT/HCPCS: 10060; 70450; 71046; 71275; 80048; 84484; 85025; 85379; 85610; 85730; 93005; 96361; 96374; 96375; 96376; 99285; J7030; Q9967; A4216; J2405

== ENCOUNTER 2019-12-01 20:18 | Emergency (ER) | payer MEDICARE, SELFPAY ==
[2019-12-01 20:19] VITALS: BP 180/86; PULSE 76; RESP 15; TEMP 37.2; O2SAT 96; BMI 56.3
--- NOTE | 2019-12-01 20:57 | CT_ITS ---
STUDY: CT BRAIN WITHOUT CONTRAST REASON FOR EXAM: Female, 64 years old. MIGRAINE HEADACHE X2 DAY -- HX:SUBDURAL HEMATOMA WITH CRAINOTOMY-6 MONTHS AGO -- HTN,FACTOR V LEIDEN,LUNG CANCER RADIATION DOSAGE (If Supplied By Facility): CTDIvol = ( 44.99 ) mGy, DLP = ( 849.54 ) mGycm TECHNIQUE: Transaxial CT imaging of the brain was performed without administration of intravenous contrast material. Individualized dose optimization techniques were used for this CT. COMPARISON: CT of the brain September 30, 2019. FINDINGS: Normal soft tissue structures. Postop change status post right parietal craniotomy Normal size ventricles and extra-axial spaces for the patient''s age. Mild periventricular white matter ischemic changes. Normal basal ganglia and thalami. Normal brainstem. Normal cerebellum. Partial empty sella deformity of uncertain significance. There is no intracranial hemorrhage. There are no findings of an acute ischemic infarction. Normal visualized paranasal sinuses. CT/Brain/Head without Contrast IMPRESSION: Postsurgical changes status post right parietal craniotomy No evidence for obstructive hydrocephalus mass or acute intracranial bleed. Electronically Signed: Dominik Lopez MD at 21:44 EDT , Service support ,
--- NOTE | 2019-12-01 21:09 | ED.DCSUM_ITS ---
History of Present Illness Chief Complaint: Headache Informant: Patient Onset: Days Context: Gradual Timing: Intermittent Quality: Similar Prior Headaches, Throbbing, Tightness Associated Symptoms: Nausea. Negative for: Fever, Vomiting, Sinus Pressure, Numbness, Blurred Vision, Photophobia, Visual Loss Narrative: Patient is a 64-year-old female with history of factor V Leiden disorder on daily Lovenox as well as history of traumatic subdural hematoma requiring craniotomy approximately 6 months ago presenting with a headache. Patient states 3 days ago she accidentally hit her head on the car frame when she was getting into her car. She not lose consciousness. Since then she has had a headache. She states it is mostly the top of her head and her forehead. She states it is pressure and throbbing. She states it feels like something grabbing the top of her head. Patient is very concerned that she might have another head bleed. She denies any vision changes but notes she intermittently does have floaters. She denies any speech changes or weakness. She denies any vomiting but states she has had some intermittent nausea. Patient tried taking Tylenol with no relief of her symptoms. She denies any other complaints at this time. Past Medical History - Allergies and Home Meds Allergies/Adverse Reactions: Allergies albuterol Adverse Reaction (Verified 12/01/19 20:24) PALPITATIONS codeine Adverse Reaction (Verified 12/01/19 20:24) Vomiting morphine Adverse Reaction (Verified 12/01/19 20:24) Vomiting oxycodone HCl [From Percocet] Adverse Reaction (Verified 12/01/19 20:24) Vomiting Primary Care Physician: Sandy Anderson MD [Primary Care Provider] - Past Medical History: - - Factor V Leiden, history of subdural heamtoma, Hypertension, obstructive sleep apnea, proximal A. fib, type 2 diabetes mellitus , history of PE Surgical History: appendectomy, cholecystectomy, - - Left lower lung resection for lung cancer, removal of cyst from the breast. Smoking Status: Former smoker - Family History Maternal Family History: Family History (Last Reviewed 10/23/19 @ 13:29 by Polina Hyatt) Mother Breast cancer Father CAD (coronary artery disease) Myocardial infarction Family History: Reports: Diabetes Paternal Family History: Family History (Last Reviewed 10/23/19 @ 13:29 by Polina Hyatt) Mother Breast cancer Father CAD (coronary artery disease) Myocardial infarction Family History: Reports: Diabetes, Heart Disease Review of Systems General: Denies: Chills, Fever, Sweats Eyes: Denies: Visual changes - bilaterally, Diplopia ENT: Denies: Rhinorrhea, Sore throat Cardiovascular: Denies: Chest pain, Palpitations Respiratory: Denies: Dyspnea, Cough, Dyspnea on exertion Gastrointestinal: Reports: Nausea. Denies: Abdominal pain, Vomiting, Diarrhea, Melena, Hematochezia Genitourinary: Denies: Dysuria, Hematuria, Frequency Musculoskeletal: Denies: Back pain, Extremity Pain Skin: Denies: Rash, Wounds Neurological: Reports: Headache. Denies: Weakness, Numbness Physical Exam Vital Signs/Narrative: Vital Signs Temp Pulse Resp BP Pulse Ox 12/01/19 20:19 98.9 F 76 15 180/86 H 96 Inital Vital Signs reviewed: Yes General: Well nourished, Well developed, Obese Head: NC, AT. Negative for: Trauma Eyes: Perrl, EOMI, - - No nystagmus ENT: Moist mucous membranes, No rhinorrhea, TM's clear Neck: Supple, No Lymphadenopathy, No JVD, Nontender, No Meningismus Cardiovascular: Regular rate, Regular rhythm, No murmurs Respiratory: No distress, CTA bilaterally, Chest nontender Abdomen: Soft, Nontender, Nondistended, Normal bowel sounds Back: Nontender, Normal Inspection Extremities: Nontender, No edema Skin: Normal color, No rash. Negative for: Trauma Neuro: Alert, Oriented x3, Cranial nerves II-XII grossly intact, Normal Strength, Normal Sensation, Normal DTR, Normal Gait Psychological: Normal affect Diagnostic/Tx/Re-eval Clinical Impression(s) from Imaging Studies Brain CT 12/01/19 20:57 IMPRESSION: Postsurgical changes status post right parietal craniotomy No evidence for obstructive hydrocephalus mass or acute intracranial bleed. Electronically Signed: Dominik Lopez MD at 21:44 EDT , Service support , - Medical Decision Making Patient is evaluated for headache. She did a low impact head injury a couple days before her headache started. She has a normal neurologic exam. Vital signs are significant only for mild hypertension. History is significant for traumatic subdural hematoma. Patient is concerned that she says she hit her head and still Lovenox that she might have a bleed again. CT is negative. Patient is given Compazine initially for headache. She does have some mild improvement. She took Tylenol prior to arrival and cannot have NSAIDs per the patient. Patient goes on to express that she is had discomfort at her surgical site from her prior craniotomy. I feel that this is likely the cause of her headache/tension headache. Patient is counseled that I do not feel comfortable giving her any opioid medications for headache as they are contraindicated and could cause a rebound headache. She states she does have Valium at home she can take. She is given a dose of Imitrex prior to discharge as well as IV fluids. I do feel that patient stable for outpatient follow-up. I do not think she requires an emergent MRI. She not have any meningeal signs. Presentation is not consistent with subarachnoid and I do not think an LP is indicated. Patient is counseled on signs and symptoms requiring return to the emergency room. Patient verbalizes agreement and understand this plan. Patient discharged home in stable and improved condition. ED Disposition - Plan for ED Patient: Disposition: Home or Assisted Living Diagnosis: Headache Instructions: ED Headache Unspecified Referrals: Sandy Anderson MD [Primary Care Provider] - Additional Instructions: Continue take Tylenol and Valium at home as needed for your headaches. You do not have any intracranial bleed. Your head CT did not show any acute changes. You are safe to go home. Please follow-up with your primary care doctor especially if you continue to have further headaches.
[2019-12-01] MEDS: proCHLORPERazine 10 MG/2 ML Vial IV (21:16)
[2019-12-01] MEDS: 0.9% Normal Saline 1,000 ML 999 ML IV (21:16)
[2019-12-01] MEDS: SUMAtriptan 6 MG/0.5 ML Vial SC (22:47)
== END 2019-12-01 22:49 | disposition home or self-care (01) ==
PROVIDERS: Emergency Provider Emergency Medicine; PCP Internal Medicine
DX: R51 Headache (principal); D68.51 Activated protein C resistance; I48.91 Unspecified atrial fibrillation; G47.33 Obstructive sleep apnea (adult) (pediatric); E11.9 Type 2 diabetes mellitus without complications; I10 Essential (primary) hypertension; E66.9 Obesity, unspecified; Z87.820 Personal history of traumatic brain injury; Z86.711 Personal history of pulmonary embolism; Z87.891 Personal history of nicotine dependence; Z79.02 Long term (current) use of antithrombotics/antiplatelets
CPT/HCPCS: 70450; 96361; 96372; 96374; 96375; 99283; J7030

== ENCOUNTER → 2020-02-05 | Outpatient (CLI) | payer MEDICARE, SELFPAY ==
--- NOTE | 2020-02-05 11:07 | PFTCOMP_ITS ---
COMPLETE PULMONARY FUNCTION TEST INTERPRETATION Brief HPI: Patient is a 64 year old female, currently under the care of myself, who presents to [facility] for complete pulmonary function tests secondary to diagnosis of asthma. Respiratory therapist reports good effort and reproducible results. Interpretation: Forced expiration spirometry shows no large airways obstructive ventilatory defect with an FEV1 of 60% predicted. Bronchodilator response was refused by the patient secondary to A. fib and palpitations previously. Spirograms are of good quality and plateau normally. The respiratory flow volume loop shows a normal pattern. Lung volumes by body plethysmography show a decreased total lung capacity at 3.89 L, 71% predicted. All other lung volumes are within normal limits. Diffusion capacity by carbon monoxide is decreased at 57% predicted. The airway resistance is normal. Compared to previous pulmonary function tests from 11/29/2017, there has been no significant change. Impression: Mild restrictive ventilatory defect with a symmetric reduction diffusion capacity, but no significant change compared to 2018. Bronchodilators were refused
== END | disposition home or self-care (01) ==
PROVIDERS: PCP Internal Medicine; Referring Provider Internal Medicine Critical Care Medicine; Visit Provider Internal Medicine Critical Care Medicine
DX: J45.909 Unspecified asthma, uncomplicated (principal); R91.1 Solitary pulmonary nodule
CPT/HCPCS: 94010; 94726; 94729

== ENCOUNTER 2020-02-17 15:43 | Emergency (ER) | payer MEDICARE, SELFPAY ==
[2020-02-17 15:45] VITALS: BP 184/90; PULSE 82; RESP 16; TEMP 36.7; O2SAT 94; BMI 55.5
[2020-02-17 16:08] LABS: Bacteria 0 SEEN /hpf (None Seen); Mucous, Urine 0 SEEN /hpf (<or=2+); Squamous Epithelial Cells - UA 0 SEEN /hpf (5-10); White Blood Cells 0 SEEN /hpf (0-5)
[2020-02-17 16:15] LABS: Color, Urine Red (Yellow); Glucose, Dipstick Normal (Normal); Ketone-Dipstick 5 mg/dl (Negative); Leukocyte Esterase-Dipstick 500 /ul (Negative); Nitrite-Dipstick Positive (Negative); Occult Blood-Urine 250 /ul (Negative); Protein-Dipstick 500 mg/dl (Negative); Urine Bilirubin Dipstick 1 mg/dL (Negative); Urine Clarity Sl. Cloudy (Clear); Urine Urobilinogen 1 mg/dl (Normal)
--- NOTE | 2020-02-17 16:36 | ED.VIS.GEN ---
History of Present Illness Chief Complaint: Complaint Informant: Patient Onset: Today Context: Sudden Onset Timing: Continuous Narrative: Patient is a 64-year-old female with history of UTIs but nothing recently presenting with dysuria and hematuria. She states her symptoms started today. She states it feels like someone is stabbing her down there. She has pain in her urethra. States when she urinates there are small clots of blood that seem to come out of her urine. She denies any vaginal bleeding, vaginal discharge or genital trauma. She denies any fever, chills, back pain or abdominal pain. She states she did take 1 Macrobid that she had at home before coming in as well as a Pyridium. She took Valium thinking that might help with her pain but it did not. She did not take any Tylenol or ibuprofen. She denies any other complaints at this time. She is not on any anticoagulants. Past Medical History - Allergies and Home Meds Allergies/Adverse Reactions: Allergies albuterol Adverse Reaction (Verified 02/17/20 15:45) PALPITATIONS codeine Adverse Reaction (Verified 02/17/20 15:45) Vomiting morphine Adverse Reaction (Verified 02/17/20 15:45) Vomiting oxycodone HCl [From Percocet] Adverse Reaction (Verified 02/17/20 15:45) Vomiting Primary Care Physician: Sandy Anderson MD [Primary Care Provider] - Past Medical History: - - Atrial fibrillation, obesity, diabetes mellitus, obstructive sleep apnea, history of diverticulitis, hypertension Surgical History: appendectomy, cholecystectomy, - - Left lower lung resection for lung cancer, removal of cyst from the breast. Smoking Status: Former smoker - Family History Maternal Family History: Family History (Last Reviewed 10/23/19 @ 13:29 by Polina Hyatt) Mother Breast cancer Father CAD (coronary artery disease) Myocardial infarction Family History: Reports: Diabetes Paternal Family History: Family History (Last Reviewed 10/23/19 @ 13:29 by Polina Hyatt) Mother Breast cancer Father CAD (coronary artery disease) Myocardial infarction Family History: Reports: Diabetes, Heart Disease Review of Systems General: Denies: Chills, Fever, Sweats Eyes: Denies: Visual changes - bilaterally, Diplopia ENT: Denies: Rhinorrhea, Sore throat Cardiovascular: Denies: Chest pain, Palpitations Respiratory: Denies: Dyspnea, Cough, Dyspnea on exertion Gastrointestinal: Denies: Abdominal pain, Nausea, Vomiting, Diarrhea, Melena, Hematochezia Genitourinary: Reports: Dysuria, Hematuria. Denies: Frequency Musculoskeletal: Denies: Back pain, Extremity Pain Skin: Denies: Rash, Wounds Neurological: Denies: Headache, Weakness, Numbness Physical Exam Vital Signs/Narrative: Vital Signs Temp Pulse Resp BP Pulse Ox 02/17/20 15:45 98.1 F 82 16 184/90 H 94 Inital Vital Signs reviewed: Yes General: Well nourished, Well developed, Obese Head: Normocephalic, Atraumatic Eyes: Perrl, EOMI ENT: Moist mucous membranes, No rhinorrhea Neck: Supple, Nontender Cardiovascular: Regular rate, Regular rhythm, No murmurs Respiratory: No distress, CTA bilaterally, Chest nontender Abdomen: Soft, Nontender, Nondistended, Normal bowel sounds Back: Nontender, Normal Inspection. Negative for: CVA tenderness, Spinal tenderness Extremities: Nontender, No edema Skin: Normal color, No rash Neurological: Alert, Oriented x3, Cranial nerves II-XII grossly intact, Normal Strength, Normal Sensation Psychological: Normal affect, Normal Mood Diagnostic/Tx/Re-eval - Medical Decision Making Laboratory Data 02/17/20 16:00 Urine Color Red Urine Clarity Sl. Cloudy Urine pH 6.0 Ur Specific [place] 1.010 Urine Protein 500 H Urine Glucose (UA) Normal Urine Ketones 5 H Urine Occult Blood 250 H Urine Nitrite Positive H Urine Bilirubin 1 H Urine Urobilinogen 1 H Ur Leukocyte Esterase 500 H Urinalysis is consistent with UTI. Likely this is a hemorrhagic cystitis. Given the fact that she is afebrile and only 1 day of symptoms I do not think she needs to be covered for pyelonephritis at this time. She is given a prescription for Pyridium as well as Keflex. She is instructed to alternate Tylenol and ibuprofen for pain. She will follow-up with her primary care doctor as needed. Cultures pending. Patient is counseled on signs and symptoms requiring return to the emergency room. Patient verbalizes agreement and understand this plan. Patient discharged home in stable and improved condition. ED Disposition - Plan for ED Patient: Disposition: Home or Assisted Living Diagnosis: UTI (urinary tract infection) Instructions: ED CYSTITIS Female Adult Prescriptions: Cephalexin [Keflex] 500 mg PO BID #28 cap Prescription Printed Phenazopyridine HCl [Pyridium] 200 mg PO TID PRN #10 tab PRN Reason: painful urination Prescription Printed Referrals: Sandy Anderson MD [Primary Care Provider] -
[2020-02-17] MEDS: Cephalexin 250 MG Capsule 500 MG PO (16:41)
[2020-02-17] MEDS: Phenazopyridine 95 MG Tablet 190 MG PO (16:41)
[2020-02-17] MEDS: Acetaminophen 500 MG Tablet 1000 MG PO (16:41)
[2020-02-17 16:47] LABS: Red Blood Cells-Urine 50-100 SEEN /hpf (0-5)
== END 2020-02-17 16:45 | disposition home or self-care (01) ==
PROVIDERS: Emergency Provider Emergency Medicine; PCP Internal Medicine
DX: N39.0 Urinary tract infection, site not specified (principal); G47.33 Obstructive sleep apnea (adult) (pediatric); E11.9 Type 2 diabetes mellitus without complications; E66.9 Obesity, unspecified; I10 Essential (primary) hypertension; I48.91 Unspecified atrial fibrillation; Z87.891 Personal history of nicotine dependence; Z79.84 Long term (current) use of oral hypoglycemic drugs; Z79.899 Other long term (current) drug therapy
CPT/HCPCS: 81001; 87077; 87086; 87088; 87186; 99283

== ENCOUNTER → 2020-02-27 | Outpatient (CLI) | payer MEDICARE, SELFPAY ==
[2020-02-17 15:45] VITALS: BMI 55.5
--- NOTE | 2020-02-27 14:16 | CT_ITS ---
STUDY: CT CHEST WITHOUT CONTRAST REASON FOR EXAM: Female, 64 years old. Pulmonary nodule RADIATION DOSAGE (If Supplied By Facility): CTDIvol = ( 24.62 ) mGy, DLP = ( 840.30 ) mGycm TECHNIQUE: Transaxial imaging was performed without the administration of intravenous contrast material. Coronal and sagittal reformatted images were created. Individualized dose optimization techniques were used for this CT. COMPARISON: 09/30/19 FINDINGS: There are no pulmonary infiltrates or pleural effusions. There is a stable 8 mm nodule in the right upper lobe (image 50 series 4). There are no additional pulmonary nodules. There is no pneumothorax. The heart and pericardium are within normal limits. There is no thoracic lymphadenopathy. There is no evidence of thoracic aortic aneurysm. Images through the upper abdomen demonstrate no significant abnormality. There are no destructive osseous lesions. CT/Chest without Contrast IMPRESSION: Stable 8 mm nodule in the right upper lobe. No new nodules or masses. A follow-up CT in 6-12 months is recommended. Electronically Signed: Spike Erwin, at 15:07 EDT Tel , Service support ,
== END | disposition home or self-care (01) ==
LOC: CT 14:16
PROVIDERS: PCP Internal Medicine; Referring Provider Internal Medicine Critical Care Medicine; Visit Provider Internal Medicine Critical Care Medicine
DX: R91.1 Solitary pulmonary nodule (principal)
CPT/HCPCS: 71250

== ENCOUNTER 2020-03-15 15:05 | Emergency (ER) | payer MEDICARE, SELFPAY ==
[2020-02-28 05:56] VITALS: BMI 56.9
[2020-03-15 15:06] VITALS: BP 183/90; PULSE 69; RESP 17; TEMP 36.8; O2SAT 95; BMI 58.3
--- NOTE | 2020-03-15 15:29 | CT_ITS ---
STUDY: CT BRAIN WITHOUT CONTRAST REASON FOR EXAM: Female, 64 years old. HEADACHE/HTN and bilateral ankle edema. Hx of subdural bleed with surgery 04/2019 RADIATION DOSAGE (If Supplied By Facility): CTDIvol = ( 44.99 ) mGy, DLP = ( 846.73 ) mGycm TECHNIQUE: Transaxial CT imaging of the brain was performed without administration of intravenous contrast material. Individualized dose optimization techniques were used for this CT. COMPARISON: 12/01/2019 FINDINGS: Normal soft tissue structures. Healed right parietal craniotomy. Normal size ventricles and extra-axial spaces for the patient''s age. Normal white matter tracts of the cerebral hemispheres. Normal basal ganglia and thalami. Normal brainstem. Normal cerebellum. There is no intracranial hemorrhage. There are no findings of an acute ischemic infarction. Normal visualized paranasal sinuses. CT/Brain/Head without Contrast IMPRESSION: No change from 12/01/2019. Electronically Signed: Mike Curiel MD at 16:29 EDT Tel , Service support ,
--- NOTE | 2020-03-15 15:30 | ED.DCSUM_ITS ---
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 Her PCP increased both her carvedilol and her diltiazem, 1 of them last week and the other yesterday. Since increasing the medication last week, she has been having headaches that have been relatively mild but annoying on top of her head without any loss of consciousness, focal neurologic symptoms, including vision changes, or nausea/vomiting, and swelling in both of her ankles. Her urine output has been normal. She denies any fevers, chills, confusion, or other new symptoms. Her main concern is that one time with elevated blood pressure and headache, she was diagnosed with a spontaneous subdural hematoma that necessitated emergent neurosurgery for evacuation, and since she is on Lovenox due to a hereditary clotting disorder and a history of pulmonary emboli as a result, she knows that it is easy for her to bleed spontaneously again. She is on a relatively low-dose of Lovenox, 40 mg daily. She denies any recent injuries including her head. - Past Medical History (1) Asthma Status: Chronic (2) History of lobectomy of lung Status: Chronic Comment: LLL removed for CA (3) History of pulmonary embolism Status: Chronic (4) Hypertension Status: Chronic (5) Obesity Status: Chronic (6) Obstructive sleep apnea Status: Chronic (7) Paroxysmal atrial fibrillation Status: Chronic (8) Type 2 diabetes mellitus without complications Status: Chronic Past Medical History - Allergies and Home Meds Allergies/Adverse Reactions: Allergies albuterol Adverse Reaction (Verified 03/15/20 15:06) PALPITATIONS codeine Adverse Reaction (Verified 03/15/20 15:06) Vomiting morphine Adverse Reaction (Verified 03/15/20 15:06) Vomiting oxycodone HCl [From Percocet] Adverse Reaction (Verified 03/15/20 15:06) Vomiting Primary Care Physician: Sandy Anderson MD [Primary Care Provider] - Surgical History: appendectomy, cholecystectomy, - - Left lower lobe lung resection for lung cancer, removal of cyst from the breast. Lives: With Family Smoking Status: Former smoker - Family History Maternal Family History: Family History (Last Reviewed 02/28/20 @ 13:38 by Katherin Sheehan) Mother Breast cancer Father CAD (coronary artery disease) Myocardial infarction Family History: Reports: Diabetes Paternal Family History: Family History (Last Reviewed 02/28/20 @ 13:38 by Katherin Sheehan) Mother Breast cancer Father CAD (coronary artery disease) Myocardial infarction Family History: Reports: Diabetes, Heart Disease Review of Systems General: Denies: Chills, Fever, Sweats Eyes: Denies: Visual changes - bilaterally, Diplopia ENT: Denies: Bilateral ear pain, Rhinorrhea, Sore throat Cardiovascular: Denies: Chest pain, Palpitations Respiratory: Reports: Dyspnea on exertion - Chronic, unchanged/stable. Denies: Dyspnea, Cough Gastrointestinal: Denies: Abdominal pain, Nausea, Vomiting, Diarrhea, Melena, Hematochezia Genitourinary: Denies: Dysuria, Hematuria, Frequency Musculoskeletal: Reports: Swelling. Denies: Myalgias, Neck pain, Back pain, Extremity Pain Skin: Denies: Rash, Wounds Neurological: Reports: Headache, Numbness - Occasionally right middle finger, chronic and intermittent, possibly due to carpal tunnel syndrome which she has been previously diagnosed with, no other neurologic symptoms. Denies: Weakness Physical Exam Vital Signs/Narrative: Vital Signs Temp Pulse Resp BP Pulse Ox 03/15/20 15:06 98.3 F 69 17 183/90 H 95 Inital Vital Signs reviewed: Yes General: Well nourished, Well developed, Obese, No Acute Distress - Well- appearing in no distress Head: Normocephalic, Atraumatic Eyes: Perrl, EOMI, - - No photophobia ENT: Moist mucous membranes, No rhinorrhea Neck: Supple, Nontender, No lymphadenopathy Cardiovascular: Regular rate, Regular rhythm, No murmurs Respiratory: No distress, CTA bilaterally, Chest nontender Abdomen: Soft, Nontender, Nondistended, Normal bowel sounds Back: Nontender, Normal Inspection Extremities: Nontender, Edema - 1+ bilateral lower extremities to knees, - - Negative Tinel's sign right carpal tunnel. Phalen's sign is equivocal, she develops numbness in the middle finger only. Skin: Normal color, No rash, No Trauma Neurological: Alert, Oriented x3, Cranial nerves II-XII grossly intact, Normal Strength, Normal Sensation, Normal Gait, - - Normal [id number] and heel to angel bilaterally Psychological: Normal affect, Normal Mood Diagnostic/Tx/Re-eval Impressions Brain CT 03/15/20 15:29 IMPRESSION: No change from 12/01/2019. Electronically Signed: Mike Curiel MD at 16:29 EDT Tel , Service support , 03/15/20 15:29 Brain/Head without Contrast [CT] Stat Laboratory Results 03/15/20 03/15/20 15:45 15:45 WBC 7.8 RBC 4.15 L Hgb 12.6 Hct 39.5 MCV 95.2 MCH 30.4 MCHC 31.9 L RDW Std Deviation 48.0 H RDW Coeff of Peyton 13.8 Plt Count 249 MPV 10.5 Immature Gran % (Auto) 0.500 Neut % (Auto) 58.5 Lymph % (Auto) 29.7 [place] % (Auto) 7.1 Eos % (Auto) 3.6 Baso % (Auto) 0.6 Absolute Neuts (auto) 4.5 Absolute Lymphs (auto) 2.30 Nucleated RBC % 0 Sodium 136 Potassium 4.1 Chloride 103 Carbon Dioxide 26.0 Anion Gap 7 BUN 23 H Creatinine 1.66 H Estim Creat Clear Calc 34.17 Est GFR (MDRD) Af Amer 40 L Est GFR (MDRD) Non-Af 33 L BUN/Creatinine Ratio 13.9 Glucose 217 H Calcium 9.0 - Medical Decision Making With hydralazine 10 mg patient's pressure came from the 180s down to the 140s systolic. Headache is still there, she was additionally given Reglan with that. She is amenable to getting some Tylenol prior to discharge. Her renal function is above, slightly worse than her last value of 1.45 earlier in the year, but not much and she has been much higher than this at 2.87 in the past. This can be followed as an outpatient. She is scheduled to follow-up at least with a phone visit with someone with her PCPs office in the next week or 2. Advised to recheck her blood pressure periodically. She is amenable to that plan, and not changing her medications right now since she just increased 1 of them yesterday which probably needs some time to equilibrate. ED Disposition - Plan for ED Patient: Disposition: Home or Assisted Living Diagnosis: Cephalgia, Accelerated hypertension, Bilateral lower extremity edema Instructions: ED Peripheral Edema, Bilateral, ED Hypertension Established Referrals: Sandy Anderson MD [Primary Care Provider] - 1 Week
[2020-03-15] MEDS: Metoclopramide 10 MG/2 ML Vial 5 MG IV (15:49)
[2020-03-15] MEDS: hydrALAZINE 20 MG/ML Vial 10 MG IV (15:49)
[2020-03-15 16:16] LABS: Absolute Neutrophil Count 4.5 X10^3/uL (2.0-7.7); Basophil# 0.05 X10^3/uL; Basophil% 0.6 % (0-1); Eosinophil# 0.28 X10^3/uL; Eosinophils% 3.6 % (0-5); Hematocrit 39.5 % (37-47); Hemoglobin 12.6 g/dL (12.0-15.0); Lymphocyte % 29.7 % (19-41); Mean Corp Hgb Conc 31.9 g/dL (32-36); Mean Corpuscular Hgb 30.4 pg (27.0-32.0); Mean Corpuscular Volume 95.2 fL (81-99); Mean Platelet Vol. 10.5 fl (6.2-12.0); Monocyte# 0.55 X10^3/uL; Monocyte% 7.1 % (0-10); NRBC Flagged by Analyzer 0 % (0-5); Neutrophil # 4.53 X10^3/uL (2.7-7.7); Neutrophil % 58.5 % (47-70); Platelet Count 249 K/mm3 (150-450); RBC Distribution Width CV 13.8 % (11.6-14.6); Red Blood Count 4.15 M/mm3 (4.2-5.4); White Blood Count 7.8 K/mm3 (4.4-11.0)
[2020-03-15 16:26] LABS: Anion Gap 7 (5-15); BUN 23 mg/dL (7-18); BUN/Creat Ratio 13.9 RATIO (10-20); Chloride 103 mmol/L (98-107); Creatinine, Serum 1.66 mg/dL (0.55-1.02); EST Glomerular Filtration Rate 33 mL/min (>60); Est Glom Filt Rate - Afr Amer 40 mL/min (>60); Estimated Creatinine Clearance 34.17 ml/min; Glucose 217 mg/dL (74-106); Potassium 4.1 mmol/L (3.5-5.1); Sodium Level 136 mmol/L (136-145)
[2020-03-15 16:36] VITALS: BP 143/65
[2020-03-15] MEDS: Acetaminophen 500 MG Tablet 1000 MG PO (17:35)
[2020-03-15 17:38] VITALS: BP 136/68; PULSE 78; RESP 18; O2SAT 98
== END 2020-03-15 17:39 | disposition home or self-care (01) ==
PROVIDERS: Emergency Provider Emergency Medicine; PCP Internal Medicine
DX: R51 Headache (principal); R60.0 Localized edema; I10 Essential (primary) hypertension; D68.2 Hereditary deficiency of other clotting factors; J45.909 Unspecified asthma, uncomplicated; E66.9 Obesity, unspecified; I48.0 Paroxysmal atrial fibrillation; E11.9 Type 2 diabetes mellitus without complications; Z86.711 Personal history of pulmonary embolism; Z79.02 Long term (current) use of antithrombotics/antiplatelets; Z79.4 Long term (current) use of insulin; Z79.899 Other long term (current) drug therapy; Z87.891 Personal history of nicotine dependence
CPT/HCPCS: 70450; 80048; 85025; 96374; 96375; 99284; A4216

== ENCOUNTER → 2020-12-26 | Outpatient (CLI) | payer MEDICARE, SELFPAY ==
[2020-12-26 16:01] LABS: Cholesterol 256 mg/dL (200); High Density Lipoprotein 34 mg/dL; Thyroid Stim Hormone (TSH) 2.26 uIU/mL (0.358-3.74); Triglycerides 394 mg/dL; Very Low Density Lipoprotein 79 mg/dL (5-40)
== END | disposition home or self-care (01) ==
LOC: LABSPEC 15:07
PROVIDERS: PCP Internal Medicine; Visit Provider Clinical Nurse Specialist
DX: E03.9 Hypothyroidism, unspecified (principal); E11.65 Type 2 diabetes mellitus with hyperglycemia; Z79.4 Long term (current) use of insulin
CPT/HCPCS: 80061; 84443

== ENCOUNTER → 2021-03-14 | Outpatient (CLI) | payer MEDICARE, SELFPAY | END | disposition home or self-care (01) | LOC: LABSPEC 13:08 | PROVIDERS: PCP Internal Medicine; Referring Provider Physician Assistant; Visit Provider Physician Assistant | DX: J02.9 Acute pharyngitis, unspecified (principal); N89.8 Other specified noninflammatory disorders of vagina; R35.0 Frequency of micturition | CPT/HCPCS: 87086; 87088 ==

== ENCOUNTER → 2021-03-25 | Outpatient (CLI) | payer MEDICARE, SELFPAY ==
[2021-03-25 16:00] LABS: Anion Gap 6 (5-15); BUN 27 mg/dL (7-18); Calcium,Total 9.1 mg/dL (8.5-10.1); Chloride 105 mmol/L (98-107); Cholesterol 194 mg/dL (200); Creatinine, Serum 1.69 mg/dL (0.55-1.02); EST Glomerular Filtration Rate 32 mL/min (>60); Est Glom Filt Rate - Afr Amer 39 mL/min (>60); Estimated Creatinine Clearance 33.13 ml/min; Glucose 114 mg/dL (74-106); High Density Lipoprotein 36 mg/dL; Potassium 3.7 mmol/L (3.5-5.1); Sodium Level 139 mmol/L (136-145); Triglycerides 238 mg/dL; Very Low Density Lipoprotein 48 mg/dL (5-40)
[2021-03-25 16:04] LABS: Hemoglobin A1c 6.7 % (3.8-5.6)
== END | disposition home or self-care (01) ==
LOC: LABSPEC 15:35
PROVIDERS: Internal Medicine Critical Care Medicine; PCP Internal Medicine
DX: F43.23 Adjustment disorder with mixed anxiety and depressed mood (principal); E11.65 Type 2 diabetes mellitus with hyperglycemia; Z79.4 Long term (current) use of insulin; N28.9 Disorder of kidney and ureter, unspecified
CPT/HCPCS: 80048; 80061; 83036

== ENCOUNTER → 2021-04-05 | Outpatient (CLI) | payer MEDICARE, MEDICAID, SELFPAY ==
[2021-04-08 20:07] LABS: Chlamydia By Nucleic Acid AMP Negative (Negative)
[2021-04-08 23:16] LABS: Gonococcus By Nucleic Acid AMP Negative (Negative)
== END | disposition home or self-care (01) ==
LOC: LABSPEC 11:20
PROVIDERS: PCP Internal Medicine; Referring Provider Internal Medicine; Visit Provider Internal Medicine
DX: R39.198 Other difficulties with micturition (principal); Z11.3 Encounter for screening for infections with a predominantly sexual mode of transmission
CPT/HCPCS: 87070; 87086; 87088; 87205; 87255; 87491; 87591

== ENCOUNTER → 2021-05-13 12:17 | Outpatient (CLI) | payer MEDICARE, MEDICAID, SELFPAY ==
--- NOTE | 2021-05-13 | EMB_PTH ---
PATIENT: NICK MCLAIN LOC: [facility] U#:[id number] AGE/SX: 69/F ROOM: RE05/13/[address]: Dr. Isabel Marquez MD : 1955 BED: DIS: SPEC #: [id number] RECD: 05/13/21 12:41 STATUS: JULI OMER #: [id number] CRYSTAL: 05/13/21 00:[address]: Isabel Marquez DEPT: SURGICAL PATHOLOGY RECD BY: Yohan Taylor ENTERED: 05/14/21 08:24 SP TYPE: ENDOM BX/C ROSA DR: Dr. Sandy Anderson MD Tissues: A - Skin of vulva B - Endometrium, NOS Procedures: Surgery Specimen Level IV HEADER OPERATION: Vulva biopsy; endometrial biopsy PRE-OP DIAGNOSIS: Vulvar lesion; complex endometrial hyperplasia without atypia TISSUE SUBMITTED: A ? Left vulvar lesion, B ? Endometrial lining MICROSCOPIC DIAGNOSIS A. 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 See comment. B. Endometrial biopsy: Simple cystic endometrial hyperplasia without atypia. OSIEL:sonali 05/15/2021 COMMENT A. Results of immunohistochemistry ([id number]) for surrogate HPV marker (p16) will be reported separately. MICROSCOPIC DESCRIPTION Slides are reviewed. GROSS DESCRIPTION A - Received in fixative is one container labeled with the patient's name and designated left vulvar lesion. The specimen consists of a punch biopsy of magallanes-white skin measuring 0.2 cm in diameter and 0.2 cm in length. The entire specimen is submitted in one cassette. B - Received is one container labeled with the patient's name and not further designated. The specimen consists of multiple irregular fragments of magallanes soft tissue mixed with mucoid tissue that in aggregate measure 1.5 x 1 x 0.1 cm. The specimen is totally submitted in one cassette. / OSIEL:sonali 05/14/21 TC:3 [facility]: [id number] x2
--- NOTE | 2021-05-13 | IMM_PTH ---
PATIENT: NICK MCLAIN LOC: LAB U#:[id number] AGE/SX: 69/F ROOM: RE05/13/[address]: Dr. Isabel Marquez MD : 1955 BED: DIS: SPEC #: [id number] RECD: 05/15/21 12:37 STATUS: JULI REAngie #: [id number] CRYSTAL: 05/13/21 00:[address]: Isabel Marquez DEPT: IMMUNOHISTOCHEMISTRY RECD BY: Ariadne Bowen ENTERED: 05/15/21 12:38 SP TYPE: IMMUNO OTHR DR: Dr. Sandy Anderson MD Tissues: A - Skin of vulva Procedures: p16 (initial) KI-67 (add) PHYSICIAN & INSTITUTION [place] [id number] SPECIMEN INFORMATION: Tissue Source: A ? Left vulvar lesion Clinical Info: Left vulvar lesion Specimen Number: [id number] CPT code: 65955, 85080 METHODOLOGY: Deparaffinized sections of prefer/formalin-fixed tissue or PAP/DQ stained slides are incubated with monoclonal/polyclonal antibodies/oligonucleotide probes. Localization is made via biotin free immunoperoxidase method. Appropriate controls are performed and reacted as expected. Results on target cell population are indicated in the following table: RESULTS: ANTIBODY / CLONE RESULT Block A P16 (E6H4) positive, focal block staining Ki-67 (30-9) positive, high These tests were developed and their performance characteristics determined by [facility]. They may not have been cleared or approved by the U.S. Food and Drug Administration. The FDA has determined that such clearance or approval is not necessary. The above immunohistochemical/dualISH markers are ordered and reviewed by the Pathologist. INTERPRETATION: A. Left vulvar lesion, biopsy: Moderate to severe squamous dysplasia. OSIEL:sonali 05/16/2021
[2021-05-13 16:03] LABS: HIV - WCH Non-Reactive (Nonreactive)
[2021-05-14 22:07] LABS: Chlamydia By Nucleic Acid AMP Negative (Negative)
[2021-05-15 08:10] LABS: Gonococcus By Nucleic Acid AMP Negative (Negative)
[2021-05-15 16:31] LABS: HPV APTIMA, High Risk Negative (Negative)
== END ==
PROVIDERS: PCP Internal Medicine; Referring Provider Obstetrics & Gynecology; Visit Provider Obstetrics & Gynecology
DX: N85.01 Benign endometrial hyperplasia (principal); A64 Unspecified sexually transmitted disease; Z11.3 Encounter for screening for infections with a predominantly sexual mode of transmission; Z71.1 Person with feared health complaint in whom no diagnosis is made
CPT/HCPCS: 36415; 86695; 86696; 86703; 87491; 87591; 87624; 88175; 88305; 88341; 88342; G0145

== ENCOUNTER → 2021-05-20 11:33 | Outpatient (CLI) | payer MEDICARE, MEDICAID, SELFPAY ==
--- NOTE | 2021-05-20 11:36 | US_ITS ---
STUDY: ULTRASOUND TRANSVAGINAL CLINICAL: Female, 65 years old. History of AUB TECHNIQUE: Transabdominal and Transvaginal COMPARISON: None. FINDINGS: Normal uterine size measuring 7.4 x 5.0 x 3.9 cm in maximal craniocaudal dimension. There are no myometrial masses. Hyperechoic and heterogeneous endometrium with thickness measuring 11 mm. There are no endometrial masses, and there is no fluid in the endometrial cavity. Normal uterine cervix. Neither ovary is well visualized due to poor transabdominal prep and intolerance of transvaginal technique. US/Transvaginal Non- IMPRESSION: Thickened endometrium for age is concerning for endometrial malignancy. Electronically Signed: Rodríguez Albert MD at 4:59 EDT Tel , Service support ,
== END ==
PROVIDERS: PCP Internal Medicine; Referring Provider Obstetrics & Gynecology; Visit Provider Obstetrics & Gynecology
DX: N85.01 Benign endometrial hyperplasia (principal)
CPT/HCPCS: 76830

== ENCOUNTER → 2021-06-25 13:49 | Outpatient (CLI) | payer MEDICARE, MEDICAID, SELFPAY ==
--- NOTE | 2021-06-25 13:55 | ECHOD_ITS ---
Reason For Study: PRE-OP Procedure This was a 2D Doppler, Color Flow transthoracic echocardiogram. The study was technically difficult. Exam performed in department. Left Ventricle Normal LV size. Left ventricular systolic function is normal. The estimated ejection fraction is 60 %. Stage 1 diastolic dysfunction. No regional wall motion abnormalities noted. Right Ventricle Normal RV size. Normal systolic function. Atria Normal left atrium. Normal right atrium. Mitral Valve Normal mitral valve. Tricuspid Valve Normal tricuspid valve. Aortic Valve Normal aortic valve. Pulmonic Valve Normal pulmonic valve. Great Vessels Normal aortic root. Pericardium/Pleural No pericardial effusion. MMode/2D Measurements & Calculations LVIDd: 5.2 cm IVSd: 1.1 cm Ao root diam: 3.8 cm LVIDs: 3.7 cm LVPWd: 1.1 cm RVDd: 4.1 cm FS: 29.0 % LAV(MOD-bp): 58.5 ml LA A4 area: 20.0 cm2 LA dimension(2D): 5.6 cm LAV(MOD-bp) Indexed: 24.4 ml/m2 LAV(MOD-sp2): 59.3 ml LAV(MOD-sp4): 60.0 ml RA A4 area: 17.2 cm2 Doppler Measurements & Calculations MV E max bin: 76.0 cm/sec Lat Peak E' Bin: 4.6 cm/sec Med Peak E' Bin: 3.6 cm/sec MV A max bin: 109.2 cm/sec E/E' lat: 16.4 E/E' med: 21.0 MV E/A: 0.70 Ao V2 max: 148.7 cm/sec LV V1 max: 96.7 cm/sec PA V2 max: 116.3 cm/sec Ao max P.8 mmHg LV V1 max P.7 mmHg ECHO/Echo Complete Interpretation Summary Normal LV size. Left ventricular systolic function is normal. The estimated ejection fraction is 60 %. Stage 1 diastolic dysfunction. Structurally normal valves. Ordering Physician: Sandy Anderson Referring Physician: Sandy Anderson Performed By: Ashley Baker RDCS, RVT
--- NOTE | 2021-06-25 14:07 | EKG12_ITS ---
Test Reason : PRE-OP Blood Pressure : / mmHG Vent. Rate : 069 BPM Atrial Rate : 069 BPM P-R Int : 180 ms QRS Dur : 098 ms QT Int : 402 ms P-R-T Axes : 061 004 014 degrees QTc Int : 430 ms Normal sinus rhythm Normal ECG Confirmed by JUDD ALDRIDGE, TORREY ([id number]), editor index ANDRÉS SANCHES ([id number]) on 06/27/2021 6:36:06 AM Referred By: Sandy Anderson Confirmed By:TORREY WHALEY MD
--- NOTE | 2021-06-25 14:45 | RAD_ITS ---
HISTORY: PRE-OP -- RECENT INCREASED SOB EXAMINATION/TECHNIQUE: XR Chest 2 Views: COMPARISON: 09/30/19 FINDINGS: LINES/DEVICES: None. LUNGS: Hazy bilateral and peripheral airspace opacities without consolidations. Mild blunting of the left costophrenic angle again noted. MEDIASTINUM AND CARDIOVASCULAR STRUCTURES: Cardiac silhouette not enlarged. Central airways and mediastinal contour are unremarkable. BONES AND SOFT TISSUES: No acute bony abnormalities. RAD/Chest PA and Lateral IMPRESSION: Interval development of bilateral airspace disease suspicious for pneumonia including atypical or viral pneumonia in the appropriate clinical setting. at 1755 Reported and signed by: Rick Moncada MD Electronically Signed: Rick Moncada MD at 17:54 EST Tel , Service support ,
== END ==
PROVIDERS: PCP Internal Medicine; Referring Provider Internal Medicine; Visit Provider Internal Medicine
DX: Z01.818 Encounter for other preprocedural examination (principal); R01.1 Cardiac murmur, unspecified
CPT/HCPCS: 36415; 71046; 80048; 83036; 83735; 84443; 85025; 85379; 86850; 86900; 86901; 93005; 93306

== ENCOUNTER 2021-08-19 05:36 | Day surgery (SDC) | payer MEDICARE, MEDICAID, SELFPAY ==
[2021-06-25 16:01] LABS: Absolute Lymphocyte Count 2.61 X10^3/uL (0.83-4.51); Absolute Neutrophil Count 8.9 X10^3/uL (2.0-7.7); Basophil# 0.06 X10^3/uL; Basophil% 0.4 % (0-1); Eosinophil# 0.19 X10^3/uL; Eosinophils% 1.4 % (0-5); Hematocrit 37.2 % (37-47); Hemoglobin 12.3 g/dL (12.0-15.0); Lymphocyte # 2.61 X10^3/ul (0.83-4.51); Lymphocyte % 19.5 % (19-41); Mean Corp Hgb Conc 33.1 g/dL (32-36); Mean Corpuscular Hgb 31.1 pg (27.0-32.0); Mean Corpuscular Volume 94.2 fL (81-99); Mean Platelet Vol. 9.8 fl (6.2-12.0); Monocyte# 0.98 X10^3/uL; Monocyte% 7.3 % (0-10); NRBC Flagged by Analyzer 0 % (0-5); Neutrophil # 8.85 X10^3/uL (2.7-7.7); Neutrophil % 66.4 % (47-70); Platelet Count 349 K/mm3 (150-450); RBC Distribution Width CV 13.9 % (11.6-14.6); RBC Distribution Width SD 48.1 fl (35.1-43.9); Red Blood Count 3.95 M/mm3 (4.2-5.4); White Blood Count 13.4 K/mm3 (4.4-11.0)
[2021-06-25 16:22] LABS: Anion Gap 9 (5-15); BUN 24 mg/dL (7-18); BUN/Creat Ratio 16.8 RATIO (10-20); Chloride 105 mmol/L (98-107); Creatinine, Serum 1.43 mg/dL (0.55-1.02); EST Glomerular Filtration Rate 39 mL/min (>60); Est Glom Filt Rate - Afr Amer 48 mL/min (>60); Glucose 110 mg/dL (74-106); Potassium 3.7 mmol/L (3.5-5.1); Sodium Level 140 mmol/L (136-145)
[2021-06-25 16:26] LABS: Hemoglobin A1c 6.6 % (3.8-5.6)
[2021-06-25 16:33] LABS: Magnesium 1.7 mg/dL (1.6-2.6)
[2021-06-25 16:41] LABS: D-Dimer Quantitative (DVT/PE) 7.66 FEU/ug/m (0.27-0.49)
[2021-08-18 11:33] LABS: Absolute Lymphocyte Count 2.31 X10^3/uL (0.83-4.51); Absolute Neutrophil Count 3.2 X10^3/uL (2.0-7.7); Basophil# 0.04 X10^3/uL; Basophil% 0.7 % (0-1); Eosinophil# 0.15 X10^3/uL; Eosinophils% 2.5 % (0-5); Hematocrit 41.7 % (37-47); Hemoglobin 13.9 g/dL (12.0-15.0); Lymphocyte # 2.31 X10^3/ul (0.83-4.51); Lymphocyte % 38.4 % (19-41); Mean Corp Hgb Conc 33.3 g/dL (32-36); Mean Corpuscular Hgb 32.3 pg (27.0-32.0); Mean Platelet Vol. 9.6 fl (6.2-12.0); Monocyte# 0.27 X10^3/uL; Monocyte% 4.5 % (0-10); NRBC Flagged by Analyzer 0 % (0-5); Neutrophil # 3.22 X10^3/uL (2.7-7.7); Neutrophil % 53.6 % (47-70); Platelet Count 264 K/mm3 (150-450); RBC Distribution Width CV 14.5 % (11.6-14.6); RBC Distribution Width SD 52.1 fl (35.1-43.9)
--- NOTE | 2021-08-18 12:25 | RAD_ITS ---
STUDY: X-RAY CHEST REASON FOR EXAM: Female, 65 years old. PRE OP TECHNIQUE: PA and lateral views of the chest. COMPARISON: Comparison is made with prior study dated 06/25/2021. FINDINGS: The previously seen bilateral pulmonary infiltrates, most completely resolved. Minimal residual changes are seen at both lung bases. This may represent scarring. Persistent blunting of the left costophrenic angle. Normal size heart. Normal mediastinum and josiane. Normal visualized pulmonary arteries. There is atherosclerotic tortuosity of the aortic arch and descending thoracic aorta. There are diffuse degenerative changes of the visualized thoracic spine. Normal visualized ribs, clavicles, and shoulders. There is no demonstrated abnormality of the visualized soft tissue structures of the upper abdomen. RAD/Chest PA and Lateral IMPRESSION: Mild residual increased markings at the lung bases suggestive of possible scarring. Electronically Signed: Brett Lin MD at 13:40 EST , Service support ,
[2021-08-19] VITALS (15 sets, daily range): BP systolic 133–180; BP diastolic 60–103; PULSE 63–82; RESP 12–18; TEMP 36.1–37; O2SAT 94–100; BMI 46.9
--- NOTE | 2021-08-19 06:07 | PCM.HP.BLA ---
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 Is patient in pain?: No Allergies epinephrine Allergy (Verified 08/12/21 13:06) Other procaine [From Novocain] Allergy (Verified 08/12/21 13:06) Other albuterol Adverse Reaction (Verified 08/12/21 13:06) PALPITATIONS codeine Adverse Reaction (Verified 08/12/21 13:06) Vomiting morphine Adverse Reaction (Verified 08/12/21 13:06) Vomiting oxycodone HCl [From Percocet] Adverse Reaction (Verified 08/12/21 13:06) Vomiting Medications amiodarone 200 mg tablet 200 mg PO QHS tab 05/20/18 [History Confirmed 08/12/21] carvedilol 12.5 mg tablet 25 mg PO BID 05/20/18 [History Confirmed 08/12/21] levothyroxine 100 mcg tablet 200 mcg PO DAILY 05/20/18 [History Confirmed 08/12/21] chlorthalidone 25 mg PO DAILY 04/27/19 [History Confirmed 08/12/21] diltiazem HCl 240 mg PO QHS 07/04/19 [History Confirmed 08/12/21] acetaminophen 650 mg PO Q6H PRN PRN tab 07/14/19 [Rx Confirmed 08/12/21] diazepam 5 mg PO DAILY PRN PRN 02/17/20 [History Confirmed 08/12/21] enalapril maleate 20 mg PO BID 02/17/20 [History Confirmed 08/12/21] enoxaparin [Lovenox] 40 mg SQ DAILY 03/15/20 [History Confirmed 08/12/21] docusate sodium 100 mg capsule 100 mg PO DAILY 05/13/21 [History Confirmed 08/12/21] metformin 500 mg tablet,extended release 24 hr 500 mg PO DAILY tab 05/13/21 [History Confirmed 08/12/21] clonidine HCl 0.2 mg PO TID PRN 06/24/21 [History Confirmed 08/12/21] dulaglutide [Trulicity] 0.75 mg SUBCUT MO 06/24/21 [History Confirmed 08/12/21] Is last menstrual period known: No Post menopausal: No Patient : No : No [facility] Medical History (Updated 08/16/21 @ 10:[address] 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 Hypertension Hypothyroid Injury of head and neck Lung cancer Malignant neoplasm of bronchus and lung Obesity Obesity due to excess calories with serious comorbidity Obstructive sleep apnea Paroxysmal atrial fibrillation Post-menopausal Pulmonary embolism Shortness of breath on exertion Spontaneous hematoma of abdominal wall Stage 2 moderate COPD by GOLD classification Thyroid disease Type 2 diabetes mellitus without complications Wears glasses Wears partial dentures Surgical History History of lobectomy of lung S/P appendectomy S/P bilateral breast lumpectomy S/P cholecystectomy S/P lobectomy of lung Status post hernia repair Family History (Updated 06/10/21 @ 09:24 by Fartun Cavazos) Mother Breast cancer Father CAD (coronary artery disease) Myocardial infarction Lung cancer Heart disease Grandmother Uterine cancer Grandfather Diabetes Social History (Updated 05/13/21 @ 10:46 by Fartun Cavazos) Smoking Status: Former smoker pack-years: 36 Tobacco: How many years used: 36 second hand exposure: Yes alcohol intake: never substance use type: does not use caffeine: Yes what type of physical activity do you participate in: none seatbelt use: always do you feel safe at home: Yes additional social history: -Unemployed HPI preop Details: NICK MORGAN is a 65 year old who presents for preop visit. Patient is still having intermittent bleeding and itching of the external vulvar area. she was seen by her PCP and was cleared for surgery 08/18 Female Reproductive History Menopausal Symptoms: No hot flashes, No night sweats, No difficulty concentrating and No change in libido Pregancy History 1 Elective abortions Hx Para 1 Spontaneous abortions Hx # Term Pregnancies Ectopic pregnancies Hx # Pregnancies Multiple births # of living children Past Pregnancies Del. Date Name GA/Weeks Outcome Route Bth Weight Gen Labor Lgth Anesthesia [facility] Provider FOB Unknown Vilma ROS Const Constitutional: Reports weight loss; Denies fatigue, night sweats or weight gain ENT ENT: Reports system reviewed and no additional complaints, except as documented Cardio Card: Denies chest pain Resp Resp: Denies cough or dyspnea GI GI: Reports as per HPI and constipation; Denies nausea or vomiting : Reports as per HPI; Denies hot flashes, nipple discharge, vaginal discharge, vaginal dryness, vaginal odor or vaginal pruritus Musc Musc: Reports back pain; Denies arthralgias or muscle weakness Skin Skin/Breast: Denies alopecia, change in hair, dry skin, breast mass, breast pain, breast skin changes or nipple discharge Neuro Neuro: Reports system reviewed and no additional complaints, except as documented Psych Psych: Reports system reviewed and no additional complaints, except as documented; Denies change in libido or difficulty concentrating Endo Endo: Denies cold intolerance, excessive sweating, heat intolerance or polydipsia Alfred/Lymph Hematologic/Lymphatic: Denies easy bleeding, Denies easy bruising and Denies lymphadenopathy Exam Const General: cooperative, healthy appearing, comfortable, no acute distress and well developed Orientation: alert [facility] Head: normal to inspection and normocephalic Ears: hearing grossly normal bilaterally and external ears normal Nose: external nose normal and nares normal Face and sinus: normal facial exam Neck Neck: normal visual inspection and no lymphadenopathy Thyroid: thyroid normal Chest Chest palpation & inspection: normal inspection of the chest Resp Effort & Inspection: normal respiratory effort Auscultation: clear to auscultation bilaterally Cardio Rate: regular rate Rhythm: regular rhythm Heart Sounds: S1 normal and S2 normal GI Inspection: normal to inspection and non-distended Palpation: soft and no hepatosplenomegaly General: bladder normal to palpation External Female Exam: abnormal external appearance, normal appearance of the urethra and lesion (white fleshy lesion) Urethra: normal appearance of the urethra, normal palpation and no discharge Speculum Exam - Vagina: normal appearance of the vagina and normal vaginal discharge Speculum Exam - Cervix: normal appearance of the cervix and nontender Bimanual Exam- Vagina & Uterus: normal bimanual exam, uterine size normal, bladder normal to palpation, uterine shape normal, No tender, uterine mobility normal, consistency normal, normal palpation and non-tender Bimanual Exam- Adnexa, other: normal adnexae, adnexae mobile, no masses and normal Pelvic Support: normal Musc Other: gross motor intact no deficits, full bilateral strength Skin General: no rashes or lesions noted Neuro General: patient alert, patient awake, moves all extremities and no focal motor deficits Motor: muscle tone normal throughout Extrem General: normal to inspection and no pedal edema Psych Appearance: grossly normal Mental Status: mental status grossly normal Affect: normal affect Speech and Movement: speech and movement normal Coding Level of Care Code No Charge Diagnoses Complex endometrial hyperplasia without atypia N85.01 Factor 5 Leiden mutation, heterozygous D68.51 JAUN III (vulvar intraepithelial neoplasia III) D07.1 Assessment and Plan Assessment and Plan (1) Complex endometrial hyperplasia without atypia: Status: Acute Comment: TVH BSO (2) Factor 5 Leiden mutation, heterozygous: Status: Acute (3) JAUN III (vulvar intraepithelial neoplasia III): Status: Acute Comment: vulvar colposcopy and CO2 laser ablation of vulvar neoplasia at time of hysterectomy Plan - Dr. Isabel Marquez MD: After discussing the patient's diagnosis and treatment plan options, patient wishes to proceed with surgical management. I have discussed with the patient the risks, benefits, and alternatives of the procedure which include but are not limited to risks of anesthesia, bleeding, infection, possible damage to bowel, bladder, or surrounding vasculature which could lead to additional surgery to evaluate any complications. Patient agrees to procedure and wishes to proceed. ACOG/uptodate references given for additional information regarding procedure. UPDATE- I have seen the patient and performed any clinically relevant updates to the history and physical exam. Isabel Marquez MD
[2021-08-19 06:15] LABS: Bedside Glucose 106 mg/dL (70-110)
[2021-08-19] MEDS: Phenazopyridine 95 MG Tablet 190 MG PO (06:48)
[2021-08-19] MEDS: Acetaminophen 500 MG Tablet 1000 MG PO ×3 (06:48→18:41)
[2021-08-19] MEDS: Celecoxib 200 MG Capsule 400 MG PO (06:49)
[2021-08-19] MEDS: Scopolamine 1mg/72hr Patch 1 PATCH TD (06:50)
[2021-08-19] MEDS: Enoxaparin 40 MG/0.4 ML Syringe SC (06:50)
[2021-08-19] MEDS: Gabapentin 600 MG Tablet PO (06:50)
[2021-08-19] MEDS: Lactated Ringers 1,000 ML 40 ML IV (06:55)
--- NOTE | 2021-08-19 07:30 | HYST_PTH ---
PATIENT: NICK MCLAIN LOC: [facility] U#:[id number] AGE/SX: 65/F ROOM: RE08/19/[address]: Dr. Isabel Marquez MD : 1955 BED: DIS: 08/20/2021 SPEC #: [id number] RECD: 08/19/21 14:02 STATUS: JULI TELLO #: [id number] CRYSTAL: 08/19/21 07:[address]: Isabel Marquez DEPT: SURGICAL PATHOLOGY RECD BY: Dori Randle ENTERED: 08/20/21 09:39 SP TYPE: HYSTERECT OTHR DR: Dr. Sandy Anderson MD Tissues: A - Uterus, NOS B - Skin of labium, NOS C - Skin of buttock, NOS Procedures: Surgery Specimen Level IV Surgery Specimen Level V HEADER OPERATION: ERAS, laparoscopic assisted vaginal hysterectomy, bilateral salpingo-oophorectomy PRE-OP DIAGNOSIS: Complex endometrial hyperplasia without atypia; Factor 5 Leiden mutation, heterozygous; JAUN III TISSUE SUBMITTED: A ? Cervix, uterus and bilateral fallopian tubes and ovaries, B ? Left labia biopsy, C ? Right buttock biopsy MICROSCOPIC DIAGNOSIS A. Uterus, cervix and bilateral fallopian tubes and ovaries, vaginal hysterectomy and bilateral salpingo-oophorectomy: Cervix ? chronic cystic cervicitis and squamous metaplasia. Endometrium ? simple cystic endometrial hyperplasia without atypia. Myometrium ? adenomyosis. Bilateral fallopian tubes - no pathologic diagnosis. Right ovary - no pathologic diagnosis. Left ovary ? adenofibroma with focal calcification (0.6 cm in diameter). - Simple epithelial cysts. B. Left labia biopsy: Consistent with lentigo. Focal changes suggestive of seborrheic keratosis. C. Right buttock lesion, biopsy: Consistent with lentigo. SJ:sonali 08/21/2021 COMMENT Please make reference to previous specimen ([id number]) left vulvar lesion, biopsy with diagnosis of ?moderate to severe squamous dysplasia (JAUN II-III)? and endometrial biopsy with diagnosis of ?simple cystic endometrial hyperplasia without atypia.? Case has been reviewed in consultation with Dr. Berumen who concurs with the above diagnosis. IDC:AM MICROSCOPIC DESCRIPTION Slides are reviewed. GROSS DESCRIPTION A - Received in fixative is one container labeled with the patient's name and designated cervix, uterus, bilateral fallopian tubes and ovaries. The specimen consists of a hysterectomy specimen consisting of uterus with cervix and attached bilateral fallopian tubes and ovaries. The uterus with cervix weighs 70 gm and measures 7 x 6 x 4 cm. The serosal surface is magallanes, glistening. The cervix appears to consist only of upper portion of cervix. No well-defined ectocervical mucosa is noted. The external os is slit-like in contour. The endocervical canal measures 2 cm in length and the endocervical mucosa is magallanes, glistening and without any mass lesion. The triangular endometrial cavity measures 3.5 cm in length and up to 2 cm in width. The endometrium is magallanes, glistening without any mass lesion and measures up to 0.1 cm in thickness. Sections of the uterine wall do not reveal any mass lesion and it measures up to 2.5 cm in thickness. The right fallopian tube measures 7 cm in length and 0.5 cm in diameter. The fimbrial end is identified. No tubo-ovarian adhesions are noted. Sections reveal unremarkable cut surfaces. The right ovary measures 5 x 2 x 2 cm. Sections reveal unremarkable cut surfaces. The left fallopian tube measures 7 cm in length and 0.5 cm in diameter. The fimbrial end is identified. Sections reveal unremarkable cut surfaces. Focal tubo-ovarian adhesions are noted. The left ovary measures 3 x 2.5 x 1.5 cm. A small nodule is noted at the surface of the ovary measuring 0.6 cm in diameter. Sections reveal a few cysts filled with clear fluid. The largest cyst measures 0.3 cm in greatest dimension. Base Manager sections are submitted in 15 cassettes as follows: 1 - anterior cervix, 2 - posterior cervix, 3-5 - anterior uterine wall, 6-8 - posterior uterine wall (the entire endometrium is submitted), 9 - right fallopian tube and ovary, 10 & 11 - more sections of right ovary, 12 - left fallopian tube and nodule at the surface of the left ovary, 13-15 - left ovary. B - Received in fixative is one container labeled with the patient's name and designated left labia biopsy. The specimen consists of a piece of magallanes-brown skin measuring 0.5 x 0.3 x 0.1 cm. The specimen is totally submitted in one cassette. C - Received in fixative is one container labeled with the patient's name and designated right buttock biopsy. The specimen consists of a piece of brown skin measuring 0.4 x 0.3 x 0.1 cm. The specimen is totally submitted in one cassette. / SJ:rg 08/20/2021 TC:3 CPT: 79090 x2, 28955
[2021-08-19] MEDS: Lubricating Jelly 60 GM Tube 30 GM (08:00)
[2021-08-19] MEDS: Vasopressin 20 UNITS/ML Vial (09:00)
[2021-08-19] MEDS: ACETIC ACID 1,000 ML IRRIG.SOLN IRRIGATION (09:55)
[2021-08-19] MEDS: Bupivacaine 0.25% 30 ML Vial (09:57)
[2021-08-19] MEDS: Silver Sulfadiazine 1% Crm 50 gm Bottle TOPICAL (10:00)
[2021-08-19 11:10] LABS: Bedside Glucose 139 mg/dL (70-110)
--- NOTE | 2021-08-19 12:19 | PCM.OPRPT ---
Problems Associated Problem List Diagnoses (1) Complex endometrial hyperplasia without atypia: (2) JAUN III (vulvar intraepithelial neoplasia III): (3) Factor 5 Leiden mutation, heterozygous: (4) History of pulmonary embolism: Report of Operation Date of Procedure: 08/19/21 Pre-Operative Diagnosis: see problem list Post-Operative Diagnosis: same Surgery/Procedure Performed:: LAVHBSO co2 laser destruction of vulvar lesions Description of Surgical Findings:: intra abdominal pelvic adhesions right and left labial JAUN appearaing lesions mobile home servicer: Lisha Cheney Type of Anesthesia: General Specimen's removed: uterus, tubes, ovaries vulvar biopsy left labia right buttox Drains: medina Fluids Replaced: crystalloid Description of Procedure: Patient received preoperative antibiotics and SCDs were on preoperatively. Patient was taken back to the operating room and placed in the dorsal lithotomy position. General anesthesia was induced and patient was prepped and draped in normal sterile fashion. Uterine manipulator was placed inside the uterus and Medina catheter placed in the bladder. The umbilicus was grasped with towel clamps and an intraumbilical incision was made after injecting with quarter percent Marcaine and a Veress needle entered into the abdomen confirmed to be intra-abdominal with a low opening pressure. Abdomen was insufflated with CO2 gas and the Veress needle removed and the 5 mm trocar was placed under direct visualization without complication. Right and left lower quadrants were transilluminated and injected with quarter percent Marcaine and 5 mm ports placed under direct visualization. Pelvis was well visualized see operative findings for additional information. Bilateral fallopian tubes were identified and transected with the LigaSure device across the mesosalpinx to the level of the utero-ovarian ligament which was also transected with the LigaSure device. The broad ligament was opened up by transecting the round ligament bilaterally and skeletonizing the uterine vessels bilaterally and creating a bladder flap using the LigaSure device. The uterine arteries were transected bilaterally with good visualization of the bladder and the ureters were seen to be inferior lateral to the operative area. Attention was then paid to the vaginal portion of the procedure and the cervix was grasped with Ritesh clamps and circumferentially injected with dilute vasopressin. A circumferential incision was made and the vaginal mucosa was mobilized off posteriorly and the cul-de-sac entered into sharply and a longneck speculum placed. The anterior cul-de-sac was then identified and entered into sharply. The uterosacral ligaments were clamped cut and suture ligated with 0 Monocryl bilaterally followed by the cardinal ligaments which were clamped cut and suture ligated bilaterally with 0 Monocryl. The uterus serially descended and was removed without difficulty. Pelvic sidewall pedicles were checked and noted to have excellent hemostasis. The vaginal mucosa was reapproximated incorporating the posterior peritoneum. This was reapproximated using 0 Vicryl [id number] sutures. Excellent hemostasis was noted. The pelvis and cul-de-sac were well visualized and no significant active bleeding noted but some raw areas were seen on the peritoneum and therefore floseal was applied. Pressure was taken down and the areas visualized and noted of excellent hemostasis. All ports were removed under direct visualization without complication and the abdomen was desufflated of air. The instruments were removed from the abdomen and the vaginal sweep was negative. Port sites on the abdomen were closed with 4-0 Monocryl interrupted sutures and Steri's and windows were applied. The vulvar area was then draped with moist towels and 2 biopsies were taken of the left and right labia. 3 lesions were then identified and with a 1 cm margin around treated with the CO2 laser at a setting of 10 W down to the level of the epidermal dermal junction. The left labia had a 2 x 2 centimeter lesion the right labia had a 2 x 2 centimeter lesion and the inner left labia had a 4 x 4 centimeter lesion of treatment with margin. Excellent hemostasis was noted. No additional lesions were seen. Dilute acetic acid solution was used to able to visualize lesions more accurately. She was awoken and taken recovery in stable condition. Grafts/Implants Used: none Complications none Admit VTE Documentation VTE Present on Admission: No VTE Mechan Device Prophylaxis: SCD's VTE Pharm Prophylaxis ordered?: Yes Multi Select Codes Urinary/Genital Urinary/Genital CPT Codes: 30310 [place] [address] LAVH+BS/O <250gr Uterus
--- NOTE | 2021-08-19 12:31 | PCM.DC ---
Discharge Instructions Diet Discharge Diet: No restrictions Activity May resume sexual activity in: 6 weeks Weight Bearing Status: Full weight bearing Dressing / Incision Call your doctor if your incision/area has: Continuous Slow Oozing, Sudden Increased Bleeding, Increased Pain/ Swelling, Increased Redness and Foul Smelling Discharge Call your doctor if you observe: Fever of 101 or Higher, Using more than 1 pad per hour, Shortness of breath, Chest pain and Uncontrolled pain Suture Line Care: Avoid Pulling/Pushing and Avoid Pinching/Bending Remove Dressing in: 1 week (if present) Cleanse incision/area with: Soap & Water and Keep Dressing Clean & Dry Follow Up Care Please Follow Up With: Isabel Marquez MD When: Call to make an appointment with your doctor for a postop visit in 2 and 6 weeks. Test Results: Test results from this visit will be discussed in further detail at your follow-up appointment, if applicable. Discharge Plan Admission Primary Reason for Your Visit: hysterectomy Attending Provider: Isabel Marquez Primary Care Provider: Sandy Anderson Discharge Orders/Prescriptions Prescriptions: New cyclobenzaprine 10 mg tablet 10 mg PO TID PRN (Reason: muscle spasm) Qty: 30 RF: 1 Continued amiodarone 200 mg tablet 200 mg PO QHS RF: 0 levothyroxine 100 mcg tablet 200 mcg PO DAILY RF: 0 carvedilol [Coreg] 12.5 mg tablet 25 mg PO BID RF: 0 docusate sodium [Stool Softener] 100 mg capsule 100 mg PO DAILY RF: 0 metformin 500 mg tablet extended release 24 hr 500 mg PO DAILY RF: 0 chlorthalidone 25 MG tablet 25 mg PO DAILY RF: 0 acetaminophen 325 MG tablet 650 mg PO Q6H PRN PRN (Reason: Pain Score 1-10/10) RF: 0 diltiazem HCl 180 MG capsule,extended release 24hr 240 mg PO QHS RF: 0 enalapril maleate 20 MG tablet 20 mg PO BID RF: 0 diazepam 5 MG tablet 5 mg PO DAILY PRN PRN (Reason: Anxiety) RF: 0 clonidine HCl 0.2 mg tablet 0.2 mg PO TID PRN (Reason: INCREASED BP) RF: 0 Trulicity 0.75 mg/0.5 mL pen injector 0.75 mg SUBCUT MO RF: 0 Changed enoxaparin [Lovenox] 40 MG/0.4 ML syringe 40 mg SQ BID Qty: 0 RF: 0 Other Ambulatory Orders: COVID 19 AG RAPID (RN COLLECT) (Routine) Timeframe: [id number] Facility: [facility] - Location: Laboratory Ordered By: Dr. Clemente Murdock ,Urine (Routine) Timeframe: [id number] Facility: [facility] - Location: Laboratory Ordered By: Dr. Clemente Murdock Referrals / Follow Up: Sandy Anderson MD [Primary Care Provider] - Disposition Disposition (needs filled in before D/C Order can be placed): Home, Self Care
[2021-08-19] MEDS: Lactated Ringers 1,000 ML 70 ML IV (12:38)
[2021-08-19] MEDS: Lisinopril 20 MG Tablet PO ×2 (13:10→21:00)
[2021-08-19] MEDS: cloNIDine HCl 0.2 MG Tablet PO (13:10)
[2021-08-19] MEDS: Carvedilol 25 MG Tablet PO ×2 (13:10→21:00)
[2021-08-19] MEDS: Ketorolac 15 MG/ML Vial IV ×2 (13:50→18:28)
[2021-08-19] MEDS: Levothyroxine 100 MCG Tablet 200 MCG PO (14:30)
[2021-08-19 16:26] LABS: Bedside Glucose 243 mg/dL (70-110)
[2021-08-19] MEDS: Docusate Sodium 100 MG Capsule PO (21:00)
[2021-08-19] MEDS: dilTIAZem CD 240 MG Capsule PO (21:00)
[2021-08-19 21:55] LABS: Bedside Glucose 202 mg/dL (70-110)
[2021-08-20] MEDS: Ketorolac 15 MG/ML Vial IV ×2 (01:23→06:27)
[2021-08-20] MEDS: Acetaminophen 500 MG Tablet 1000 MG PO ×2 (01:23→06:25)
[2021-08-20 03:00] LABS: Bedside Glucose 186 mg/dL (70-110)
[2021-08-20 03:17] LABS: Hematocrit 37.4 % (37-47); Hemoglobin 12.3 g/dL (12.0-15.0); Mean Corp Hgb Conc 32.9 g/dL (32-36); Mean Corpuscular Hgb 31.5 pg (27.0-32.0); Mean Corpuscular Volume 95.9 fL (81-99); Platelet Count 234 K/mm3 (150-450); RBC Distribution Width SD 49.2 fl (35.1-43.9); White Blood Count 6.5 K/mm3 (4.4-11.0)
[2021-08-20 03:42] LABS: Anion Gap 6 (5-15); BUN 27 mg/dL (7-18); BUN/Creat Ratio 15.8 RATIO (10-20); Calcium,Total 8.8 mg/dL (8.5-10.1); Chloride 103 mmol/L (98-107); Creatinine, Serum 1.71 mg/dL (0.55-1.02); EST Glomerular Filtration Rate 32 mL/min (>60); Est Glom Filt Rate - Afr Amer 39 mL/min (>60); Estimated Creatinine Clearance 32.75 ml/min; Glucose 191 mg/dL (74-106); Potassium 3.6 mmol/L (3.5-5.1); Sodium Level 138 mmol/L (136-145)
[2021-08-20 04:00] VITALS: BP 148/65; PULSE 78; RESP 18; TEMP 36.9; O2SAT 95
--- NOTE | 2021-08-20 06:13 | PCM.PN.OB ---
Subjective Subjective Patient doing well without complaints. Tolerating PO. Ambulating without difficulty. Denies chest pain, shortness of breath, calf pain/swelling, fevers, chills, lightheadedness. Objective Data Objective Data Vital Signs: Vital Signs Temp Pulse Resp BP Pulse Ox 98.4 F 78 18 148/65 H 95 08/20/21 04:00 08/20/21 04:00 08/20/21 04:00 08/20/21 04:00 08/20/21 04:00 Oxygen Flow Rate (L/min) 4 Oxygen Delivery Method Room Air Weight: 299 lb 13.259 oz Body Mass Index (BMI) 46.9 Intake & Output: Intake and Output for Last 24 Hours 08/18/21 08/19/21 08/20/21 23:59 23:59 23:59 Intake Total 1335 / 1935 2134.5 / 2134.5 Output Total 300 / 300 Balance 1035 / 1635 2134.5 / 2134.5 Lab / Micro Data Result Diagrams: 08/20/21 02:38 08/20/21 02:38 Labs: Laboratory Results - last 24 hr 08/19/21 06:09: POC Glucose 106 08/19/21 11:05: POC Glucose 139 H 08/19/21 16:13: POC Glucose 243 H 08/19/21 20:56: POC Glucose 202 H 08/20/21 01:25: POC Glucose 186 H 08/20/21 02:38: WBC 6.5, RBC 3.90 L, Hgb 12.3, Hct 37.4, MCV 95.9, MCH 31.5, MCHC 32.9, RDW Std Deviation 49.2 H, RDW Coeff of Peyton 14.0, Plt Count 234, MPV 10.0 08/20/21 02:38: Sodium 138, Potassium 3.6, Chloride 103, Carbon Dioxide 29.0, Anion Gap 6, BUN 27 H, Creatinine 1.71 H, Estim Creat Clear Calc 32.75, Est GFR (MDRD) Af Amer 39 L, Est GFR (MDRD) Non-Af 32 L, BUN/Creatinine Ratio 15.8, Glucose 191 H, Calcium 8.8 Micro: Microbiology 08/18/21 11:35 Interface Orders SARS-CoV-2 Antigen (Rapid) - Final ROS Constitutional Constitutional: Reports systems reviewed and no addt'l complaints, except as documented Cardiovascular Cardiovascular: Reports systems reviewed and no addt'l complaints, except as documented Respiratory/Chest Respiratory/Chest: Reports systems reviewed and no addt'l complaints, except as documented Gastrointestinal Gastrointestinal: Reports systems reviewed and no addt'l complaints, except as documented Physical Exam Const alert, oriented x3 and no apparent distress HEENT Head and Scalp: atraumatic Resp normal respiratory effort GI soft to palpation and non-tender Assessment & Plan (1) Complex endometrial hyperplasia without atypia: COMMENT: [facility] BSO (2) JAUN III (vulvar intraepithelial neoplasia III): COMMENT: vulvar colposcopy and CO2 laser ablation of vulvar neoplasia at time of hysterectomy PLAN: patient is s/p lavhbso vulvar co2 laser POD 1 1. routine ERAS protocol postop care- increase ambulation, encourage oral intake and oral control of pain. lovenox and scds for dvt prophylaxis, patient stable for discharge to home.
[2021-08-20] MEDS: Enoxaparin 40 MG/0.4 ML Syringe SC (06:26)
[2021-08-20] MEDS: Levothyroxine 100 MCG Tablet 200 MCG PO (06:26)
[2021-08-20 06:46] LABS: Bedside Glucose 167 mg/dL (70-110)
[2021-08-20 07:35] VITALS: O2SAT 97
[2021-08-20] MEDS: metFORMIN (XR) 500 MG Tablet PO (08:24)
[2021-08-20] MEDS: Docusate Sodium 100 MG Capsule PO (09:18)
[2021-08-20] MEDS: Chlorthalidone 50 MG Tablet 25 MG PO (09:19)
[2021-08-20] MEDS: Carvedilol 25 MG Tablet PO (09:21)
[2021-08-20] MEDS: Lisinopril 20 MG Tablet PO (09:21)
== END 2021-08-20 11:20 | disposition home or self-care (01) ==
LOC: SDC 05:38 → AC 05:38 → MS2 13:05
PROVIDERS: Anesthesiology; PCP Internal Medicine; Referring Provider Obstetrics & Gynecology; Visit Provider Obstetrics & Gynecology
PROC: 0UT9FZZ Resection of Uterus, Via Natural or Artificial Opening With Percutaneous Endoscopic Assistance (ICD-10-PCS; CPT 58552; principal; 2021-08-19 07:05)
PROC: (CPT 58552; 2021-08-19 07:05)
DX: N85.01 Benign endometrial hyperplasia (principal); J44.9 Chronic obstructive pulmonary disease, unspecified; I48.0 Paroxysmal atrial fibrillation; Z68.42 Body mass index [BMI] 45.0-49.9, adult; D68.51 Activated protein C resistance; E11.9 Type 2 diabetes mellitus without complications; L81.4 Other melanin hyperpigmentation; N83.292 Other ovarian cyst, left side; N30.10 Interstitial cystitis (chronic) without hematuria; D07.1 Carcinoma in situ of vulva; E78.00 Pure hypercholesterolemia, unspecified; I10 Essential (primary) hypertension; E66.09 Other obesity due to excess calories; E03.9 Hypothyroidism, unspecified; G47.33 Obstructive sleep apnea (adult) (pediatric); M19.90 Unspecified osteoarthritis, unspecified site; F32.A Depression, unspecified; F41.9 Anxiety disorder, unspecified; Z90.2 Acquired absence of lung [part of]; Z79.84 Long term (current) use of oral hypoglycemic drugs; Z79.899 Other long term (current) drug therapy; Z87.01 Personal history of pneumonia (recurrent); Z86.711 Personal history of pulmonary embolism; Z87.891 Personal history of nicotine dependence; Z20.822 Contact with and (suspected) exposure to COVID-19
CPT/HCPCS: 58552; 56501; 00840; 36415; 71046; 80048; 82962; 83036; 83735; 84443; 85025; 85027; 85379; 86850; 86900; 86901; 87426; 88305; 88307; 99251; C9803; J7120; G0463; J2405

== ENCOUNTER 2021-10-15 17:08 | Outpatient (CLI) | payer MEDICARE, MEDICAID, SELFPAY ==
[2021-10-16 09:20] LABS: HIV - WCH Non-Reactive (Nonreactive); Hepatitis B Surface Antigen Non-Reactive (Nonreactive); Hepatitis C Antibody Non-Reactive (Nonreactive); Syphilis Antibodies Non-reactive
[2021-10-17 21:07] LABS: Chlamydia By Nucleic Acid AMP Negative (Negative)
[2021-10-17 21:29] LABS: Gonococcus By Nucleic Acid AMP Negative (Negative)
== END 2021-10-15 23:59 | disposition home or self-care (01) ==
PROVIDERS: PCP Internal Medicine; Visit Provider Obstetrics & Gynecology
DX: Z11.3 Encounter for screening for infections with a predominantly sexual mode of transmission (principal); N89.8 Other specified noninflammatory disorders of vagina; A60.04 Herpesviral vulvovaginitis
CPT/HCPCS: 36415; 86703; 86780; 86803; 87070; 87205; 87340; 87491; 87591

== ENCOUNTER 2022-02-11 17:06 | Emergency (ER) | payer MEDICARE, MEDICAID, SELFPAY ==
[2022-02-11 17:07] VITALS: BP 171/112; PULSE 89; RESP 16; TEMP 37; O2SAT 99; BMI 46.2
--- NOTE | 2022-02-11 17:51 | CT_ITS ---
STUDY: CT BRAIN WITHOUT CONTRAST REASON FOR EXAM: Female, 66 years old. trauma RADIATION DOSAGE (If Supplied By Facility): CTDIvol = ( 44.99 ) mGy, DLP = ( 863.60 ) mGycm TECHNIQUE: Transaxial CT imaging of the brain was performed without administration of intravenous contrast material. Individualized dose optimization techniques were used for this CT. COMPARISON: 03/15/2020 CT head FINDINGS: Normal soft tissue structures. Right parietal occipital craniotomy changes are noted. There is mild cerebral atrophy with widening of the extra-axial spaces and ventricular dilatation. Normal white matter tracts of the cerebral hemispheres. Normal basal ganglia and thalami. Normal brainstem. Normal cerebellum. There is no intracranial hemorrhage. There are no findings of an acute ischemic infarction. Normal visualized paranasal sinuses. CT/Brain/Head without Contrast IMPRESSION: No evidence of acute intracranial bleed, mass or ischemia. Electronically Signed: Priyank Han DO at 18:20 EDT ,
--- NOTE | 2022-02-11 17:54 | EX.ED.GENINJ ---
HPI History of Present Illness Chief Complaint: Head Injury Informant: patient Onset/Context/Timing Onset: Today Current Severity: Mild Maximum Severity: Mild Associated Symptoms Associated Symptoms: Negative for Parasthesias, Weakness, Loss of function, Inability to ambulate, Loss of consciousness or Amnesia Narrative Narrative: 66-year-old female extensive past medical history of factor V Leiden, A. fib, COPD, diabetes, prior intracranial bleed. Currently is on Lovenox for her A. fib and factor V Leiden. She was in the bathroom today she stood up quickly and struck the top of her head on a hand dryer. She states she is having significant discomfort. No laceration to her scalp. Secondarily she believes she has a UTI since she is had symptoms for the last 3 days with dysuria. She has had multiple UTIs in the past. She also wanted the urine checked for gonorrhea and chlamydia because her ex- and her recently had relations. Prior similar symptoms: Yes Recent Illness/Hospitalization: No PFSH PFS Medical History Abnormal CXR Acute diverticulitis Anxiety Arthritis Asthma Atrial fibrillation Back pain Cancer Cardiology follow-up encounter COPD (chronic obstructive pulmonary disease) Depression Diabetes Factor 5 Leiden mutation, heterozygous Former smoker High cholesterol History of diverticulitis History of echocardiogram History of pulmonary embolism History of stress test HLD (hyperlipidemia) HSV-1 (herpes simplex virus 1) infection HSV-2 (herpes simplex virus 2) infection Hx vulvar dysplasia Hypertension Hypothyroid Injury of head and neck Lung cancer Malignant neoplasm of bronchus and lung Obesity Obesity due to excess calories with serious comorbidity Obstructive sleep apnea Paroxysmal atrial fibrillation Post-menopausal Pulmonary embolism Shortness of breath on exertion Spontaneous hematoma of abdominal wall Stage 2 moderate COPD by GOLD classification Thyroid disease Type 2 diabetes mellitus without complications Wears glasses Wears partial dentures Home Medications amiodarone 200 mg tablet 200 mg PO QHS heart 05/20/18 [History Last Taken Unknown] carvedilol 12.5 mg tablet (Coreg) 25 mg PO BID 05/20/18 [History Last Taken 07/10/19] levothyroxine 100 mcg tablet 200 mcg PO DAILY thyroid 05/20/18 [History Last Taken 07/10/19] chlorthalidone 25 mg tablet 25 mg PO DAILY 04/27/19 [History Last Taken Unknown] diltiazem HCl 180 mg capsule,extended release 24 hr 240 mg PO QHS heart 07/04/19 [History Last Taken 07/10/19] acetaminophen 325 mg tablet 650 mg PO Q6H PRN PRN Pain Score 1-05/1107/14/19 [Rx Last Taken Unknown] diazepam 5 mg tablet 5 mg PO DAILY PRN PRN Anxiety 02/17/20 [History Last Taken 08/19/21 01:00] enalapril maleate 20 mg tablet 20 mg PO BID 02/17/20 [History Last Taken Unknown] docusate sodium 100 mg capsule (Stool Softener) 100 mg PO DAILY 05/13/21 [History Last Taken Unknown] clonidine HCl 0.2 mg tablet 0.2 mg PO QHS 06/24/21 [History Last Taken Unknown] dulaglutide 0.75 mg/0.5 mL subcutaneous pen injector (Trulicity) 0.75 mg subcut MO 06/24/21 [History Last Taken Unknown] enoxaparin 40 mg/0.4 mL subcutaneous syringe (Lovenox) 40 mg (0.4 mL) SQ BID FACTOR V LEIDEN #0 mL 08/19/21 [Rx Last Taken Unknown] rosuvastatin 40 mg tablet (Crestor) 40 mg PO DAILY 02/11/22 [History Last Taken Unknown] sulfamethoxazole 800 mg-trimethoprim 160 mg tablet (Bactrim DS) 1 tab PO BID 7 days #14 tabs 02/11/22 [Rx Last Taken Unknown] Allergy/AdvReac Type Severity Reaction Status Date / Time albuterol AdvReac PALPITATION Verified 02/11/22 17:10 S codeine AdvReac Vomiting Verified 02/11/22 17:10 epinephrine AdvReac Other Verified 02/11/22 17:10 morphine AdvReac Vomiting Verified 02/11/22 17:10 oxycodone HCl [From Percocet] AdvReac Vomiting Verified 02/11/22 17:10 procaine [From Novocain] AdvReac Other Verified 02/11/22 17:10 Family History Mother Breast cancer Father CAD (coronary artery disease) Myocardial infarction Lung cancer Heart disease Grandmother Uterine cancer Grandfather Diabetes Surgical History H/O bilateral salpingo-oophorectomy History of laparoscopic-assisted vaginal hysterectomy History of lobectomy of lung S/P appendectomy S/P bilateral breast lumpectomy S/P cholecystectomy S/P lobectomy of lung Status post hernia repair Social History Smoking Status: Former smoker pack-years: 36 Tobacco: How many years used: 36 second hand exposure: Yes alcohol intake: never substance use type: does not use caffeine: Yes what type of physical activity do you participate in: none seatbelt use: always do you feel safe at home: Yes additional social history: -Unemployed ROS ROS ED ROS Narrative Dysuria. Review of Systems ROS Unobtainable: Denies due to encephalopathy Constitutional Constitutional ED: Denies chills Eyes Eyes: Denies blurry vision ENT ENT ED: Denies ear pain Cardiovascular Cardiovascular: Denies chest pain Respiratory/Chest Respiratory/Chest: Denies cough Gastrointestinal Gastrointestinal: Denies abdominal pain Genitourinary Genitourinary ED: Reports dysuria Musculoskeletal Musculoskeletal: Denies arthralgias Integumentary Denies abscess Neurologic Neurologic: Reports headache(s) Psychiatric Psychiatric: Denies anxiety Endocrine Endocrinology: Denies cold intolerance Hematologic/Lymphatic Hematologic/Lymphatic: Denies easy bleeding Allergic/Immunologic Allergic/Immunologic ED: Denies mouth swelling EXAM Physical Exam Narrative Exam Narrative: 66-year-old female no acute distress. Vital signs stable afebrile. Initial blood pressure 131/112. She is in no acute distress. H EENT exam pupils round reactive light. No facial trauma. Top of her scalp on the anterior portion there is tenderness. Small hematoma. No laceration. C-spine nontender. Full range of motion her neck. Lungs are clear. Heart regular rhythm. Abdomen soft nontender. Moving all 4 extremities. Neurologically she is awake alert with no focal motor deficits. Const Vital Signs: 02/11/22 17:07 02/11/22 17:16 02/11/22 19:07 Temperature 98.6 F Temperature Source Temporal Pulse Rate 89 Respiratory Rate 16 20 H Respiratory Effort Normal Respiratory Depth Normal Respiratory Pattern Normal Blood Pressure 171/112 H 156/65 H Blood Pressure Mean 131 95 Pulse Ox 99 97 Oxygen Delivery Method Room Air Room Air Room Air Positive well nourished, well developed and obese; Negative for cachectic, contractures or unkempt General Appearance ED: well developed; Negative for unkempt, cachectic or contractures Nutritional Appearance: obese; Negative for cachectic HEENT trauma and tenderness; Negative for atraumatic Eyes PERRL and EOMs intact bilaterally Neck full ROM General: Negative for tenderness Chest Wall inspection of chest normal and palpation of chest normal Resp normal respiratory effort and clear to auscultation bilaterally Auscultation: Negative for rales, rhonchi or wheezes Cardio regular rhythm, S1 normal heart sound, S2 normal heart sound and no murmurs Rate: regular rate GI normal to inspection, nondistended, normoactive bowel sounds, non-tender, non-distended and no masses Inspection: Negative for abdominal distention Auscultation: normoactive bowel sounds Palpation: soft; Negative for tender Back/Spine normal to inspection and no thoracic nor lumbar tenderness Extremity normal to inspection General Extremety ED: Negative for deformity, edema or tenderness General Extremity: Negative for deformity or edema Psych mental status grossly normal and thought process normal Appearance: Negative for unkempt Attitude: No agitated Mood & Affect: Negative for depressed, anxious or tearful Skin no rashes or lesions noted and no wounds Trauma: Negative for abrasion MDM MDM MDM Narrative Medical decision making narrative: 66-year-old on Lovenox due to A. fib and factor V Leiden and head trauma today. Needs a CAT scan of her brain. Clinically she is stable. She is also having UTI symptoms last several days and urinalysis to be obtained. She requested to be checked also for gonorrhea and chlamydia. Urine showed 5-10 white cells 1+ bacteria no nitrates. A culture will be sent. I discussed with the patient she request to be treated with antibiotics and feels strongly that she has a urinary tract infection. She be placed on Bactrim 1 pill twice a day for 7 days. She will be notified of the urine gonorrhea and chlamydia if they are positive. Lab Data Attestation: I reviewed the patient's lab results. Lab results narrative: Urinalysis shows 5-10 white cells 1+ bacteria. No nitrites. Urine culture will be sent. CAT scan of the brain shows no acute abnormality as read by the radiologist and reviewed by me. Labs: Laboratory Results - last 24 hr 02/11/22 17:30 Urine Color Straw Urine Clarity Clear Urine pH 6.5 Ur Specific [place] 1.010 Urine Protein 30 H Urine Glucose (UA) Normal Urine Ketones Negative Urine Occult Blood Negative Urine Nitrite Negative Urine Bilirubin Negative Urine Urobilinogen Normal Ur Leukocyte Esterase 100 H Urine WBC 5-10 SEEN Ur Squamous Epith Cells 0-5 SEEN Urine Bacteria 1+ Urine Mucus 0 SEEN Radiography Diagnostic Testing: Clinical Impression(s) from Imaging Studies Brain CT 02/11/22 17:51 IMPRESSION: No evidence of acute intracranial bleed, mass or ischemia. Electronically Signed: Priyank Han DO at 18:20 EDT , Discharge Plan Triage Chief Complaint: Head Injury Other Complaint: Complaint ED Provider: gUo Brito Dx/Rx/DC Orders Clinical Impression: Closed head injury, Chronic anticoagulation, Dysuria Instructions: ED Head Injury (Adult) Prescriptions: New sulfamethoxazole-trimethoprim [Bactrim DS] 800-160 mg tablet 1 tab PO BID 7 Days Qty: 14 0RF No Action amiodarone 200 mg tablet 200 mg PO QHS levothyroxine 100 mcg tablet 200 mcg PO DAILY carvedilol [Coreg] 12.5 mg tablet 25 mg PO BID docusate sodium [Stool Softener] 100 mg capsule 100 mg PO DAILY chlorthalidone 25 MG tablet 25 mg PO DAILY Label Comments: TAKE 1 TABLET BY MOUTH ONCE DAILY acetaminophen 325 MG tablet 650 mg PO Q6H PRN PRN (Reason: Pain Score 1-10/10) 0RF diltiazem HCl 180 MG capsule,extended release 24hr 240 mg PO QHS Label Comments: TAKE 1 CAPSULE BY MOUTH TWICE DAILY enalapril maleate 20 MG tablet 20 mg PO BID diazepam 5 MG tablet 5 mg PO DAILY PRN PRN (Reason: Anxiety) clonidine HCl 0.2 mg tablet 0.2 mg PO QHS Trulicity 0.75 mg/0.5 mL pen injector 0.75 mg SUBCUT MO enoxaparin [Lovenox] 40 MG/0.4 ML syringe 40 mg SQ BID Qty: 0 0RF Rx Instructions: bid x 2 weeks then once daily rosuvastatin [Crestor] 40 mg Tablet 40 mg PO DAILY Primary Care Provider: Sandy Anderson Referrals: Sandy Anderson MD [Primary Care Provider] - 3-5 Days if not improving Activity Restrictions/Additional Instructions: Plenty of fluids and cranberry juice. Bactrim 1 pill twice a day for 7 days. Urine culture was sent. This may or may not be a UTI. You will be notified if the urine chlamydia and gonorrhea is positive. Disposition Disposition: Home, Self Care
[2022-02-11 18:04] LABS: Mucous, Urine 0 SEEN /hpf (<or=2+)
[2022-02-11 18:17] LABS: Color, Urine Straw (Yellow); Glucose, Dipstick Normal (Normal); Ketone-Dipstick Negative (Negative); Leukocyte Esterase-Dipstick 100 /ul (Negative); Nitrite-Dipstick Negative (Negative); Occult Blood-Urine Negative /ul (Negative); Protein-Dipstick 30 mg/dl (Negative); Urine Bilirubin Dipstick Negative (Negative); Urine Clarity Clear (Clear); Urine Urobilinogen Normal (Normal); Urine pH 6.5 (5.0 - 8.0)
[2022-02-11 18:51] LABS: Bacteria 1+ /hpf (None Seen); Squamous Epithelial Cells - UA 0-5 SEEN /hpf (5-10); White Blood Cells 5-10 SEEN /hpf (0-5)
[2022-02-11 19:07] VITALS: BP 156/65; RESP 20; O2SAT 97
[2022-02-11 20:51] LABS: Red Blood Cells-Urine 0 SEEN /hpf (0-5)
[2022-02-11 22:11] LABS: Chlamydia Trachomatis by PCR Negative (Negative); Neisserai gonorrhoeae by PCR Negative (Negative); Probe Check PASS; Sample Adequacy Control PASS; Specimen Processing Control PASS
== END 2022-02-11 19:52 | disposition home or self-care (01) ==
PROVIDERS: Emergency Provider Emergency Medicine; PCP Internal Medicine; Visit Provider Emergency Medicine
DX: S09.90XA Unspecified injury of head, initial encounter (principal); J44.9 Chronic obstructive pulmonary disease, unspecified; I48.91 Unspecified atrial fibrillation; D68.51 Activated protein C resistance; E11.9 Type 2 diabetes mellitus without complications; R30.0 Dysuria; I10 Essential (primary) hypertension; E78.5 Hyperlipidemia, unspecified; E78.00 Pure hypercholesterolemia, unspecified; Z11.3 Encounter for screening for infections with a predominantly sexual mode of transmission; E03.9 Hypothyroidism, unspecified; Z79.899 Other long term (current) drug therapy; E66.9 Obesity, unspecified; G47.33 Obstructive sleep apnea (adult) (pediatric); M19.90 Unspecified osteoarthritis, unspecified site; Z79.01 Long term (current) use of anticoagulants; Z87.891 Personal history of nicotine dependence
CPT/HCPCS: 70450; 81001; 87491; 87591; 99283